=== PATIENT | female | born 1955 | race Caucasian/White ===

== ENCOUNTER → 2016-05-04 | Outpatient (CLI) | payer BC ==
--- NOTE | 2016-05-04 15:07 | MAMMOGRAPHY REPORT ---
BILATERAL DIGITAL SCREENING MAMMOGRAM TOMOSYNTHESIS WITH CAD: 05/04/2016 CLINICAL HISTORY: Routine screening. Patient has no complaints. TECHNIQUE: Breast tomosynthesis in addition to standard 2D mammography was performed. Current study was also evaluated with a Computer Aided Detection (CAD) system. COMPARISON: Comparison is made to exams dated: 04/21/2015 mammogram, 04/14/2014 mammogram, 04/03/2013 m ammogram, 03/28/2013 mammogram, 03/30/2010 mammogram - [facility], and 04/11/2007. BREAST COMPOSITION: There are scattered areas of fibroglandular density in both breasts. FINDINGS: No suspicious masses, calcifications, or areas of architectural distortion are noted in e ither breast. There has been no significant interval change compared to prior exams. A biopsy marke r clip is again noted in the right upper outer quadrant. IMPRESSION: ACR BI-RADS CATEGORY 2: BENIGN There is no mammographic evidence of malignancy. A 1 year screening mammogram is recommended. The p atient will receive written notification of the results. Approximately 10% of breast cancers are not detected with mammography. A negative mammographic repor t should not delay biopsy if a clinically suggestive mass is present. Alissa Sunshine M.D. /:05/04/2016 14:14:24 Glass Crusher: [place], [facility] letter sent: Normal 1/2 BI-RADS Code: ACR BI-RADS Category 2: Benign
== END | disposition home or self-care (01) ==
LOC: C.MAMM 08:21
PROVIDERS: ATTEND Family Medicine
DX: Z12.31 Encounter for screening mammogram for malignant neoplasm of breast (principal)

== ENCOUNTER → 2017-05-10 | Outpatient (CLI) | payer BC ==
--- NOTE | 2017-05-10 15:13 | MAMMOGRAPHY REPORT ---
BILATERAL DIGITAL SCREENING MAMMOGRAM TOMOSYNTHESIS WITH CAD: 05/10/2017 CLINICAL HISTORY: Routine screening. Patient has no complaints. TECHNIQUE: Breast tomosynthesis in addition to standard 2D mammography was performed. Current study was also evaluated with a Computer Aided Detection (CAD) system. COMPARISON: Comparison is made to exams dated: 05/04/2016 mammogram, 04/21/2015 mammogram, 04/14/2014 ma mmogram, 04/03/2013 mammogram, 03/28/2013 mammogram, and 03/30/2010 mammogram - [facility]. BREAST COMPOSITION: There are scattered areas of fibroglandular density in both breasts. FINDINGS: There is a stable seth-shaped biopsy marker clip in the 11:30 to 12:00 right breast. The gl andular pattern is similar to prior mammograms and there is a benign coarse calcification in the 12:0 0 right breast. No suspicious mass, architectural distortion or cluster of suspicious microcalcifica tions is seen. IMPRESSION: ACR BI-RADS CATEGORY 1: NEGATIVE There is no mammographic evidence of malignancy. A 1 year screening mammogram is recommended. The pa tient will receive written notification of the results. Approximately 10% of breast cancers are not detected with mammography. A negative mammographic report should not delay biopsy if a clinically suggestive mass is present. Ingris Aviles M.D. ay/:05/10/2017 10:01:43 Cement Fittings Maker: La RODRIGUEZ)([place]), [facility] letter sent: Normal 1/2 BI-RADS Code: ACR BI-RADS Category 1: Negative
== END | disposition home or self-care (01) ==
LOC: C.MAMM 09:28
PROVIDERS: ATTEND Family Medicine
DX: Z12.31 Encounter for screening mammogram for malignant neoplasm of breast (principal)

== ENCOUNTER 2020-02-08 11:37 | Inpatient (IN) ==
[2020-02-08] MEDS ORDERED: DEXAMETHASONE SOD INJ 10 MG/ML VIAL IV ONE (12:12)
[2020-02-08] MEDS ORDERED: ACETAMINOPHEN 500 MG TAB PO STA (12:12)
[2020-02-08] MEDS ORDERED: SODIUM CHLORIDE 0.9% 1000ML 1,000 ML IV SCH (12:15)
--- NOTE | 2020-02-08 12:18 | Emergency Department Note ---
Impression & Plan Hypoxia, Breathlessness, Weakness, COVID-19, Acute respiratory failure with hypoxia ED Provider Note Provider: Alexi Pearson MD DATE OF SERVICE:02/08/2020 CHIEF COMPLAINT: Weakness, shortness of breath HISTORY OF PRESENT ILLNESS: Patient is a 65-year-old female history of hypertension presenting today complaining of weakness and shortness of breath. Patient tested positive within the past week for coronavirus. Patient states she returned from [place] just over a week ago and thinks that a colleague of her 's was positive and her exposure was from that. Patient states she has been not eating or drinking well and feeling very fatigued and short of breath. Has been isolating at home. Denies significant chest pain or abdominal pain but endorses some diarrhea. Denies nausea at this time. Denies significant leg swelling. Patient has not been using any Tylenol or Motrin at home. Symptoms of breath worse with exertion. REVIEW OF SYSTEMS: A total of 10 review of systems was obtained and negative except as stated above in the HPI. PAST MEDICAL HISTORY: As noted above MEDICATIONS: Reviewed home medications with the patient SOCIAL HISTORY: Non-smoker, PHYSICAL EXAM: GENERAL: alert and oriented on the stretcher appears somewhat fatigued Head: normocephalic and atraumatic EYES: No injection, discharge or icterus. NECK: Trachea midline. Supple. LUNGS: Airway patent. Slight increased work of breathing. HEART: Regular rate and rhythm. No chest wall tenderness ABDOMEN: Soft and non-tender, without guarding or rebound. SKIN: Acyanotic, warm, dry, without rashes EXTREMITIES: Without swelling, tenderness or deformity NEUROLOGICAL: No focal deficits. No aphasia. No facial droop or slurred speech. EK bpm normal sinus rhythm. No PVC. No acute ST segment elevation or depression. Left anterior fascicular block noted. CONTINUOUS CARDIAC MONITORING: was ordered and showed a heart rate of 90 bpm in normal sinus rhythm Patient's laboratory studies and imaging reviewed. Differential includes Infection, dehydration, metabolic abnormality, hypo/hyperglycemia, electrolyte disturbance, anemia, hypoxia, cardiac sources, intracerebral event, toxicologic, neurologic, as well as other pathologies. IMPRESSION/MEDICAL DECISION MAKING: Patient presents weak with shortness of breath known positive for coronavirus. Recent travel. No significant leg swelling. Denies significant chest pain or abdominal pain. Doubt acute intra-abdominal catastrophe as perforation or appendicitis. Patient hypoxic on room air. D-dimer was sent out exclude PE no clinical evidence of DVT. EKG basic labs cultures lactate were sent. Mild leukopenia and lymphopenia. D-dimer is positive and a CT of the chest to be completed to exclude PE. No significant renal dysfunction. CRP mildly elevated. AST slightly elevated. Troponin is undetectable and again I doubt this is cardiac related. No evidence of acute pancreatitis without significant lipase elevation. Chest x-ray ordered with per radiology review and my review multifocal airspace opacities likely viral in nature. Patient given Tylenol here since she has not taken any to help with her symptoms. Given IV fluids. Given dexamethasone for additional treatment given her hypoxia with coronavirus. Patient requires admission given her hypoxia and symptoms. Interesting Covid ID test here was negative however recent positive test and the clinical symptoms suggest that this patient is suffering primarily from coronavirus. Discussed with Dr. Gaytan who reports would not test again at this point and consider the patient coronavirus positive. Empirically covered with a dose of ceftriaxone given her illness now requiring an oxymask 5L. On reassessment the patient does endorse some slight improvement of symptoms with the oxygen. Throughout her stay here in the emergency department patient had escalating oxygen requirements later requiring high flow oxygen. DIAGNOSIS: COVID-19, hypoxia, shortness of breath, hypoxic respiratory failure DISPOSITION: Hospitalist will evaluate Patient was agreeable with this plan. Critical Care I have personally spent 38 minutes of critical care time in the direct management of this patient. This includes bedside care, interpretation of diagnostic studies, and testing, discussion with consultants, [facility], and [facility], and other required patient management activities. These 38 minutes is in excess of all separately billable procedures. Past Med/Surg History Medical History (Updated 02/08/20 @ 17:44 by César Foy MD) HTN (hypertension), benign Pneumonia due to 2019 novel coronavirus Prediabetes Surgical History S/P lumpectomy, right breast Family History Father Tobacco abuse disorder Mother Cancer Social History Smoking Status: Never smoker Hx Alcohol Use: Yes Hx Substance Use: No Feels Safe at Home: Yes Allergies Allergies Allergy/AdvReac Type Severity Reaction Status Date / Time No Known Allergies Allergy Unverified 02/08/20 13:47 Home Meds Home Medications Medication Instructions Recorded Confirmed cholecalciferol (vitamin D3) 25 mcg PO QAM 02/08/20 02/08/20 [Vitamin D3] [id number] [Vicks 30 ml PO QID PRN 02/08/20 02/08/20 NyQuil Cold/Flu (doxyl)] lisinopril 30 mg PO PM 02/08/20 02/08/20 metoprolol succinate 50 mg PO PM 02/08/20 02/08/20 multivitamin 1 tab PO QAM 02/08/20 02/08/20 pantoprazole 40 mg PO QAM 02/08/20 02/08/20 zinc 50 mg PO QAM 02/08/20 02/08/20 Results & Data (ED) Vital Signs Vital Signs - 24 hr 02/08/20 11:44 02/08/20 11:45 02/08/20 11:52 Temperature 37.7 C H Temperature Source Oral Pulse Rate 91 H 92 H 89 Pulse Rate from SpO2 Sensor 87 89 Respiratory Rate 22 24 24 Blood Pressure 125/86 125/86 Blood Pressure Mean 104 99 Blood Pressure Position Sitting Pulse Oximetry 83 L 92 94 Oxygen Delivery Method Room Air Nasal Cannula Oxygen Flow Rate 3 Sepsis Recent Fever Within 48 Hours No Sepsis New/Unexplained Change in Mental Status No Sepsis Action Taken by Nursing No Action Required Oxygen Flow Rate - Titration 3 Pulse Oximetry Post Tiitration 94 02/08/20 12:00 02/08/20 12:30 02/08/20 12:43 Temperature Temperature Source Pulse Rate 87 90 87 Pulse Rate from SpO2 Sensor 87 88 88 Respiratory Rate 22 24 24 Blood Pressure 135/70 Blood Pressure Mean 91 Blood Pressure Position Pulse Oximetry 93 88 L 91 Oxygen Delivery Method Nasal Cannula Nasal Cannula Oxymask Oxygen Flow Rate 3 3 5 Sepsis Recent Fever Within 48 Hours Sepsis New/Unexplained Change in Mental Status Sepsis Action Taken by Nursing Oxygen Flow Rate - Titration Pulse Oximetry Post Tiitration 02/08/20 12:44 02/08/20 13:00 02/08/20 13:01 Temperature Temperature Source Pulse Rate 86 84 85 Pulse Rate from SpO2 Sensor 81 78 86 Respiratory Rate 20 22 22 Blood Pressure 134/81 Blood Pressure Mean 93 Blood Pressure Position Pulse Oximetry 90 91 92 Oxygen Delivery Method Oxymask Oxymask Oxymask Oxygen Flow Rate 5 5 5 Sepsis Recent Fever Within 48 Hours Sepsis New/Unexplained Change in Mental Status Sepsis Action Taken by Nursing Oxygen Flow Rate - Titration Pulse Oximetry Post Tiitration 02/08/20 13:30 02/08/20 13:31 02/08/20 14:00 Temperature Temperature Source Pulse Rate 85 84 81 Pulse Rate from SpO2 Sensor 85 84 81 Respiratory Rate 24 22 22 Blood Pressure 139/85 130/80 Blood Pressure Mean 94 91 Blood Pressure Position Pulse Oximetry 91 91 91 Oxygen Delivery Method Oxymask Oxymask Oxymask Oxygen Flow Rate 5 5 5 Sepsis Recent Fever Within 48 Hours Sepsis New/Unexplained Change in Mental Status Sepsis Action Taken by Nursing Oxygen Flow Rate - Titration Pulse Oximetry Post Tiitration 02/08/20 14:01 02/08/20 14:30 02/08/20 14:31 Temperature Temperature Source Pulse Rate 82 79 78 Pulse Rate from SpO2 Sensor 82 79 79 Respiratory Rate 20 22 22 Blood Pressure 129/80 Blood Pressure Mean 88 Blood Pressure Position Pulse Oximetry 91 90 90 Oxygen Delivery Method Oxymask Oxymask Oxymask Oxygen Flow Rate 5 5 5 Sepsis Recent Fever Within 48 Hours Sepsis New/Unexplained Change in Mental Status Sepsis Action Taken by Nursing Oxygen Flow Rate - Titration Pulse Oximetry Post Tiitration 02/08/20 15:06 Temperature Temperature Source Pulse Rate Pulse Rate from SpO2 Sensor 80 Respiratory Rate Blood Pressure Blood Pressure Mean Blood Pressure Position Pulse Oximetry 91 Oxygen Delivery Method Oxymask Oxygen Flow Rate 10 Sepsis Recent Fever Within 48 Hours Sepsis New/Unexplained Change in Mental Status Sepsis Action Taken by Nursing Oxygen Flow Rate - Titration Pulse Oximetry Post Tiitration Laboratory Data Result diagrams: 02/08/20 12:37 02/08/20 12:37 Lab Results 02/08/20 02/08/20 02/08/20 Range/Units 12:37 12:37 12:37 WBC 2.74 L (4.8-10.8) K/uL RBC 4.76 (4.2-5.4) M/uL Hgb 14.4 (12.0-16.0) g/dL Hct 42.8 (37-47) % MCV 89.9 (80-100) fL MCH 30.3 (25-34) pg MCHC 33.6 (32-36) g/dL Plt Count 142 (130-400) K/uL Immature Gran % (Auto) 0.0 % Neut % (Auto) 67.1 % Lymph % (Auto) 22.6 % Henderson % (Auto) 9.9 % Eos % (Auto) 0.4 % Baso % (Auto) 0.0 % Neut # (Auto) 1.84 (1.4-6.5) K/uL Lymph # (Auto) 0.62 L (1.2-3.4) K/uL Henderson # (Auto) 0.27 (0.11-0.59) K/uL Eos # (Auto) 0.01 (0-0.5) K/uL Baso # (Auto) 0.00 (0-0.2) K/uL Immature Gran # (Auto) 0.00 (0.00-0.02) K/uL PT 10.9 (9.0-12.0) Seconds INR 1.0 (0.9-1.1) D-Dimer 2200 H* (0-500) ug/L FEU Sodium (136-145) mmol/L Potassium (3.5-5.1) mmol/L Chloride (98-107) mmol/L Carbon Dioxide (21-32) mmol/L Anion Gap (3-11) BUN (7-18) mg/dl Creatinine (0.6-1.2) mg/dl Est Cr Clr Drug Dosing ml/min Est GFR ( Amer) Est GFR (Non-Af Amer) BUN/Creatinine Ratio (10-20) Glucose (70-99) mg/dl Lactate (0.4-2.0) mmol/L Calcium (8.5-10.1) mg/dl Total Bilirubin (0.2-1) mg/dl AST (15-37) U/L ALT (12-78) U/L Alkaline Phosphatase (45-117) U/L Troponin I (0-0.045) ng/ml C-Reactive Protein (0-0.29) mg/dl Total Protein (6.4-8.2) gm/dl Albumin (3.4-5.0) gm/dl Globulin (2.5-4.0) gm/dl Albumin/Globulin Ratio (0.9-2) Lipase (73-393) U/L Procalcitonin (0-0.5) ng/ml COVID-19 Eval Order SARS-CoV-2, RNA, NAAT (NEGATIVE) Blood Type B Positive Antibody Screen NEGATIVE 02/08/20 02/08/20 02/08/20 Range/Units 12:37 12:37 12:37 WBC (4.8-10.8) K/uL RBC (4.2-5.4) M/uL Hgb (12.0-16.0) g/dL Hct (37-47) % MCV (80-100) fL MCH (25-34) pg MCHC (32-36) g/dL Plt Count (130-400) K/uL Immature Gran % (Auto) % Neut % (Auto) % Lymph % (Auto) % Henderson % (Auto) % Eos % (Auto) % Baso % (Auto) % Neut # (Auto) (1.4-6.5) K/uL Lymph # (Auto) (1.2-3.4) K/uL Henderson # (Auto) (0.11-0.59) K/uL Eos # (Auto) (0-0.5) K/uL Baso # (Auto) (0-0.2) K/uL Immature Gran # (Auto) (0.00-0.02) K/uL PT (9.0-12.0) Seconds INR (0.9-1.1) D-Dimer (0-500) ug/L FEU Sodium 134 L (136-145) mmol/L Potassium 3.3 L (3.5-5.1) mmol/L Chloride 102 (98-107) mmol/L Carbon Dioxide 27 (21-32) mmol/L Anion Gap 5.0 (3-11) BUN 15 (7-18) mg/dl Creatinine 0.79 (0.6-1.2) mg/dl Est Cr Clr Drug Dosing 75.3 ml/min Est GFR ( Amer) 90.4 Est GFR (Non-Af Amer) 78.0 BUN/Creatinine Ratio 18.7 (10-20) Glucose 116 H (70-99) mg/dl Lactate 1.4 (0.4-2.0) mmol/L Calcium 8.3 L (8.5-10.1) mg/dl Total Bilirubin 0.5 (0.2-1) mg/dl AST 42 H (15-37) U/L ALT 34 (12-78) U/L Alkaline Phosphatase 66 (45-117) U/L Troponin I < 0.015 (0-0.045) ng/ml C-Reactive Protein 3.06 H (0-0.29) mg/dl Total Protein 7.0 (6.4-8.2) gm/dl Albumin 3.1 L (3.4-5.0) gm/dl Globulin 3.9 (2.5-4.0) gm/dl Albumin/Globulin Ratio 0.8 L (0.9-2) Lipase 485 H (73-393) U/L Procalcitonin < 0.05 (0-0.5) ng/ml COVID-19 Eval Order SARS-CoV-2, RNA, NAAT (NEGATIVE) Blood Type Antibody Screen 02/08/20 02/08/20 Range/Units 12:46 12:46 WBC (4.8-10.8) K/uL RBC (4.2-5.4) M/uL Hgb (12.0-16.0) g/dL Hct (37-47) % MCV (80-100) fL MCH (25-34) pg MCHC (32-36) g/dL Plt Count (130-400) K/uL Immature Gran % (Auto) % Neut % (Auto) % Lymph % (Auto) % Henderson % (Auto) % Eos % (Auto) % Baso % (Auto) % Neut # (Auto) (1.4-6.5) K/uL Lymph # (Auto) (1.2-3.4) K/uL Henderson # (Auto) (0.11-0.59) K/uL Eos # (Auto) (0-0.5) K/uL Baso # (Auto) (0-0.2) K/uL Immature Gran # (Auto) (0.00-0.02) K/uL PT (9.0-12.0) Seconds INR (0.9-1.1) D-Dimer (0-500) ug/L FEU Sodium (136-145) mmol/L Potassium (3.5-5.1) mmol/L Chloride (98-107) mmol/L Carbon Dioxide (21-32) mmol/L Anion Gap (3-11) BUN (7-18) mg/dl Creatinine (0.6-1.2) mg/dl Est Cr Clr Drug Dosing ml/min Est GFR ( Amer) Est GFR (Non-Af Amer) BUN/Creatinine Ratio (10-20) Glucose (70-99) mg/dl Lactate (0.4-2.0) mmol/L Calcium (8.5-10.1) mg/dl Total Bilirubin (0.2-1) mg/dl AST (15-37) U/L ALT (12-78) U/L Alkaline Phosphatase (45-117) U/L Troponin I (0-0.045) ng/ml C-Reactive Protein (0-0.29) mg/dl Total Protein (6.4-8.2) gm/dl Albumin (3.4-5.0) gm/dl Globulin (2.5-4.0) gm/dl Albumin/Globulin Ratio (0.9-2) Lipase (73-393) U/L Procalcitonin (0-0.5) ng/ml COVID-19 Eval Order Covid19 [facility] SARS-CoV-2, RNA, NAAT NEGATIVE (NEGATIVE) Blood Type Antibody Screen Administered Medications Discontinued Medications Acetaminophen (Acetaminophen 500 Mg Tab) 1,000 mg PO NOW STA Stop: 02/08/20 12:13 Last Admin: 02/08/20 12:44 Dose: 1,000 mg Documented by: [id number] Dexamethasone (Dexamethasone Sod Inj 10 Mg/Ml Vial) 6 mg IV NOW ONE Stop: 02/08/20 12:13 Last Admin: 02/08/20 12:43 Dose: 6 mg Documented by: [id number] Sodium Chloride (Nss 1000ml) 1,000 mls @ 999 mls/hr IV .Q1H1M HARRY Stop: 02/08/20 13:15 Last Infusion: 02/08/20 13:54 Dose: 0 mls/hr Documented by: [id number] Admin: 02/08/20 12:41 Dose: 999 mls/hr Documented by: [id number] Ceftriaxone Sodium (Rocephin) 2,000 mg in 70 mls @ 140 mls/hr IV NOW STA Stop: 02/08/20 14:13 Last Infusion: 02/08/20 15:17 Dose: 0 mls/hr Documented by: [id number] Admin: 02/08/20 14:46 Dose: 140 mls/hr Documented by: [id number] Ioversol (Optiray 320 125ml) 120 ml IV ONCE ONE Stop: 02/08/20 14:28 Last Admin: 02/08/20 14:27 Dose: 120 ml Documented by: [id number] Discharge Plan Visit Data Chief Complaint: Weakness Stated Complaint: TESTED POSITIVE FOR COVID ED Provider: Alexi Pearson Discharge Problem: Hypoxia, Breathlessness, Weakness, COVID-19, Acute respiratory failure with hypoxia Patient Disposition: Admitted As Inpatient Condition: Fair Discharge Instructions Interventions: ED Discharge Assessment Last Done: 02/08/20 16:53
--- NOTE | 2020-02-08 12:41 | XRay Report ---
XR chest 1V portable HISTORY: Shortness of breath, hypoxia, COVID+ COMPARISON: None. FINDINGS: No pneumothorax. No pleural effusions. The heart is normal in size. Multifocal patchy airsp zoey opacities are noted. This most pronounced within the bilateral mid lung zones. Old, healed left h umeral neck fracture. IMPRESSION: Multifocal patchy airspace opacities likely representing a viral pneumonia. ACT 112: Negative or not required by law. Electronically signed by: Ahsan Wing M.D. 02/08/2020 12:40 PM
[2020-02-08 13:00] LABS: Prothrombin Time 10.9 Seconds (9.0-12.0)
[2020-02-08 13:06] LABS: D Dimer 2200 ug/L FEU (0-500)
[2020-02-08 13:08] LABS: Alanine Aminotransferase 34 U/L (12-78); Albumin Level 3.1 gm/dl (3.4-5.0); Aspartate Aminotransferase 42 U/L (15-37); BUN Creatinine Ratio 18.7 (10-20); Blood Urea Nitrogen 15 mg/dl (7-18); Calcium 8.3 mg/dl (8.5-10.1); Carbon Dioxide 27 mmol/L (21-32); Chloride 102 mmol/L (98-107); Creatinine Clr Calc Pharmacy 75.3 ml/min; Est GFR (African American) 90.4; Glucose 116 mg/dl (70-99); Lipase 485 U/L (73-393); Potassium 3.3 mmol/L (3.5-5.1); Sodium 134 mmol/L (136-145)
[2020-02-08 13:13] LABS: Albumin Globulin Ratio 0.8 (0.9-2); Alkaline Phosphatase 66 U/L (45-117); Bilirubin,Total 0.5 mg/dl (0.2-1); C Reactive Protein 3.06 mg/dl (0-0.29); Globulin 3.9 gm/dl (2.5-4.0); Troponin I < 0.015 ng/ml (0-0.045)
[2020-02-08 13:26] LABS: Eosinophils # (auto) 0.01 K/uL (0-0.5); Eosinophils % (auto) 0.4 %; Hematocrit (blood only) 42.8 % (37-47); Hemoglobin 14.4 g/dL (12.0-16.0); Lymphocytes # (auto) 0.62 K/uL (1.2-3.4); Lymphocytes % (auto) 22.6 %; Mean Corpuscular Hemoglobin 30.3 pg (25-34); Mean Corpuscular Hgb Conc 33.6 g/dL (32-36); Mean Corpuscular Volume 89.9 fL (80-100); Monocytes # (auto) 0.27 K/uL (0.11-0.59); Monocytes % (auto) 9.9 %; Neutrophils # (auto) 1.84 K/uL (1.4-6.5); Neutrophils % (auto) 67.1 %; Platelet Count 142 K/uL (130-400); Red Blood Count 4.76 M/uL (4.2-5.4); White Blood Count 2.74 K/uL (4.8-10.8)
[2020-02-08] MEDS ORDERED: cefTRIAXone SODIUM 2,000 MG/70 ML BAG IV STA (13:44)
--- NOTE | 2020-02-08 13:55 | History & Physical Report ---
Date of Service February 08, 2020 Assessment & Plan (1) Pneumonia due to 2019 novel coronavirus: Acute respiratory failure with hypoxia Multifocal Covid pneumonia CTA: No evidence for pulmonary embolus. Multifocal bilateral groundglass and consolidative airspace opacities consistent with a pneumonia. This likely represents a viral pneumonia. A superimposed bacterial pneumonia cannot be excluded. Normal procalcitonin Troponin negative CRP:3.06 COVID screen tested positive on 01/31/20 --Done at [facility] (Obtain records) Check [employer] as likely false negative COVID screen in ED Blood cultures pending Started on high flow oxygen Also started on Remdesivir, Dexamethasone Patient consents for coalescent plasma Consult pulmonology Isolation precautions Hypokalemia Hyponatremia likely secondary to GI loses Replete electrolytes as needed Monitor Diarrhea Likely secondary to Covid Stool studies ordered HTN Continue lisinopril, metoprolol GERD Continue PPI Prediabetes Update HbA1c Expect hypoglycemia while on IV steroids Insulin sliding scale while hospitalized Elevated D-dimer CTA showed no PE Check venous Dopplers to rule out DVT DVT Px: Lovenox SQ CODE STATUS Full code History of Present Illness Chief Complaint: Shortness of breath Primary Care Provider: Jessie Esquivel PA-C Patient is a 65-year-old female with history of hypertension, prediabetes, GERD, S/P Right breast lumpectomy and other medical problems presents with history of worsening shortness of breath, generalized weakness associated with severe tiredness since 7 days duration. Patient was tested positive for Covid on September 30, 2019. Patient also states that her was tested positive as well. She admits to returning back from [place] about 10 days ago. She reports minimal cough with no expectoration. She denies dyspnea at rest but has significant shortness of breath with minimal exertion. She also admits to having diarrhea since 1 week duration but denies any blood in stools. Also states having low-grade fever associated with chills since 1 week duration. She admits to having loss of taste and smell for the last few days. Reports chronic lower back pain since many years. Patient states having very poor appetite clinically but denies any significant weight loss. Denies any history of chest pain, SOB, palpitations, dizziness, pedal edema, wheezing, hemoptysis, fall, head trauma, headache, bowel/bladder incontinence, nausea, vomiting, abdominal pain, blood in stools, dysuria, hematuria, recent change in medications. Allergies Allergy/AdvReac Type Severity Reaction Status Date / Time No Known Allergies Allergy Unverified 02/08/20 13:47 Home Medications Medication Instructions Recorded Confirmed Type cholecalciferol (vitamin D3) 25 mcg PO QAM 02/08/20 02/08/20 History [Vitamin D3] [id number]-[id number] [Vicks 30 ml PO QID PRN 02/08/20 02/08/20 History NyQuil Cold/Flu (doxyl)] lisinopril 30 mg PO PM 02/08/20 02/08/20 History metoprolol succinate 50 mg PO PM 02/08/20 02/08/20 History multivitamin 1 tab PO QAM 02/08/20 02/08/20 History pantoprazole 40 mg PO QAM 02/08/20 02/08/20 History zinc 50 mg PO QAM 02/08/20 02/08/20 History Past Med/Surg History Medical History HTN (hypertension), benign Prediabetes Surgical History S/P lumpectomy, right breast Family History Father Tobacco abuse disorder Mother Cancer Social History Smoking Status: Never smoker Hx Alcohol Use: Yes Alcohol type: wine Hx Substance Use: No Preferred Language: Greek Sales Enablement Analyst Required: No Beliefs That Will Affect Care: None Current Living Situation: Spouse Other Information That Helps Us Care for You: No Feels Safe at Home: Yes Safety Concerns: Feels Safe At This Time Assistive Devices: None Review of Systems Review of Systems: All systems reviewed & are unremarkable except as noted in HPI & below Physical Exam Physical Exam: Physical Exam: Vitals signs as noted above General Appearance:Moderately built and nourished, no apparent distress Head: normocephalic, Atraumatic Eyes: normal inspection, EOMI, PERRL Neck: supple, Trachea midline Respiratory/Chest: Normal breath sounds, B/L Scattered crackles Cardiovascular: S1, S2, No murmur Abdomen/GI:Soft, Non tender, Bowel sounds present Extremities/Musculoskelatal:normal inspection, no edema Neurologic/Psych:AAOX3, grossly no focal neurological deficits Skin: normal color, warm Results & Data Results & Data ([facility]) Vital Signs (Past 12 Hours) Vital Signs Temp Pulse Resp BP Pulse Ox 02/08/20 13:31 84 22 91 02/08/20 13:30 85 24 139/85 91 02/08/20 13:01 85 22 92 02/08/20 13:00 84 22 134/81 91 02/08/20 12:44 86 20 90 02/08/20 12:43 87 24 135/70 91 02/08/20 12:30 90 24 88 L 02/08/20 12:00 87 22 93 02/08/20 11:52 89 24 94 02/08/20 11:45 37.7 C H 92 H 24 125/86 92 02/08/20 11:44 91 H 22 125/86 83 L Laboratory Results Short CBC 02/08/20 Range/Units 12:37 WBC 2.74 L (4.8-10.8) K/uL Hgb 14.4 (12.0-16.0) g/dL Hct 42.8 (37-47) % Plt Count 142 (130-400) K/uL BMP 02/08/20 12:37 Sodium 134 L Potassium 3.3 L Chloride 102 Carbon Dioxide 27 BUN 15 Creatinine 0.79 Glucose 116 H Calcium 8.3 L Cardiac Enzymes 02/08/20 Range/Units 12:37 Troponin I < 0.015 (0-0.045) ng/ml Liver Function 02/08/20 Range/Units 12:37 Total Bilirubin 0.5 (0.2-1) mg/dl AST 42 H (15-37) U/L ALT 34 (12-78) U/L Alkaline Phosphatase 66 (45-117) U/L Albumin 3.1 L (3.4-5.0) gm/dl Diagnostic Findings Chest CTA: 1. No evidence for pulmonary embolus. 2. Multifocal bilateral groundglass and consolidative airspace opacities consistent with a pneumonia. This likely represents a viral pneumonia. A superimposed bacterial pneumonia cannot be excluded. ECG Additional Comments: EKG: Normal sinus rhythm. Left anterior fascicular block. QTc 465.
[2020-02-08] MEDS ORDERED: OPTIRAY 320 125ml IV ONE (14:27)
--- NOTE | 2020-02-08 15:13 | CT Scan Report ---
CHEST CTA for PULMONARY ARTERIES CT DOSE: 291.64 mGy.cm HISTORY: Shortness of breath. PE, +COVID, +DIMER TECHNIQUE: Multiaxial CT images of the chest were performed following the intravenous administration of contrast to evaluate the pulmonary arteries. Maximal intensity projection images were also obtaine d. A dose lowering technique was utilized adhering to the principles of ALARA. COMPARISON STUDY: Chest 02/08/2020. FINDINGS: The central airways are patent. No pleural effusions. No pneumothorax. Multifocal bilateral groundglass and consolidative airspace opacities most pronounced within the mid lung zones. This lik latrell represents a viral pneumonia. There are also focal areas of consolidation within the lower lobes posteriorly. A superimposed bacterial pneumonia cannot be excluded. Calcified granuloma within the ri ght middle lobe. Old, healed left humeral neck fracture. No suspicious osseous lesions identified. Li mited views of the upper abdomen demonstrate a normal liver and spleen. Normal esophagus. The heart i s top normal in size. No pericardial effusion. A few prominent mediastinal and hilar lymph nodes are likely reactive. No filling defects within the pulmonary arteries to suggest pulmonary embolus. IMPRESSION: 1. No evidence for pulmonary embolus. 2. Multifocal bilateral groundglass and consolidative airspace opacities consistent with a pneumonia. This likely represents a viral pneumonia. A superimposed bacterial pneumonia cannot be excluded. ACT 112: Negative or not required by law. Electronically signed by: Ahsan Wing M.D. 02/08/2020 3:12 PM
[2020-02-08] MEDS ORDERED: POLYETHYLENE (MIRALAX) 17 GM PACK PO PRN (17:25)
[2020-02-08] MEDS ORDERED: FUROSEMIDE 40 MG/4 ML VIAL IV ONE (17:25)
[2020-02-08] MEDS ORDERED: ACETAMINOPHEN 325 MG TAB PO PRN (17:25)
[2020-02-08] MEDS ORDERED: GLUCOSE 10 TABS/TUBE PO PRN (17:25)
[2020-02-08] MEDS ORDERED: GLUCAGON FOR INJ 1 MG VIAL SQ PRN (17:25)
[2020-02-08] MEDS ORDERED: GLUCOSE 40% GEL 15 GM TUBE PO PRN (17:25)
[2020-02-08] MEDS ORDERED: DEXTROSE 50% 50 ML SYRINGE IV PRN (17:25)
[2020-02-08] MEDS ORDERED: CARBOHYDRATES FOR HYPOGLYCEMIA PO PRN (17:25)
[2020-02-08] MEDS ORDERED: ONDANSETRON INJ 2 MG/ML 2 ML VIAL IV PRN (17:25)
[2020-02-08] MEDS ORDERED: REMDESIVIR 200 MG in SODIUM CHLORIDE 0.9% 210 ML IV STA (17:38)
[2020-02-08] MEDS ORDERED: POTASSIUM CHLORIDE CRTAB 20 MEQ TABCR PO ONE (17:46)
[2020-02-08] MEDS ORDERED: FUROSEMIDE 40 MG in SYRINGE 0 ML IV ONE (18:00)
[2020-02-08] MEDS: ENOXAPARIN INJ 40 MG/0.4 ML SYR SQ SCH (18:50)
[2020-02-08 18:53] LABS: Appearance Urine Clear (Clear); Bacteria Urine Automated Negative (Negative); Bilirubin Urine Negative (Negative); Blood Urine Trace (Negative); Cast Urine Automated 0 /lpf (0-5); Color Urine Yellow; Epithelial Cell Urine Auto 20-30 /lpf (0-5); Glucose Urine UA Negative (Negative); Ketones Urine Negative (Negative); Leukocyte Esterase Urine Trace (Negative); Nitrite Urine Negative (Negative); Protein Urine 1+ (Negative); RBC Urine Automated 0-4 /hpf (0-4); Specific Gravity Urine 1.027 (1.000-1.030); Urobilinogen Urine Negative (Negative); pH Urine 6.5 (4.5-7.5)
[2020-02-08] MEDS ORDERED: ALBUTEROL HFA 8 GM INHALER INH PRN (19:00)
[2020-02-08] MEDS: INSULIN ASPART 100 UNITS/ML 3 ML PEN SC SCH ×2 (19:03→21:00)
[2020-02-08] MEDS: SODIUM CHLORIDE 0.9% 10ML FLUSH IV SCH (21:19)
[2020-02-08] MEDS: lisinopril 10 MG TAB PO SCH (21:20)
[2020-02-08] MEDS: DOXYCYCLINE HYCLATE 100 MG CAP PO SCH (21:20)
[2020-02-08] MEDS: METOPROLOL SUCC 50MG EXT REL TAB PO SCH (21:20)
--- NOTE | 2020-02-09 06:35 | Electrocardiogram Report ---
Test Reason : Blood Pressure : / mmHG Vent. Rate : 083 BPM Atrial Rate : 083 BPM P-R Int : 156 ms QRS Dur : 092 ms QT Int : 396 ms P-R-T Axes : 032 -55 -01 degrees QTc Int : 465 ms Normal sinus rhythm Left anterior fascicular block Inferior infarct , age undetermined Abnormal ECG No previous ECGs available Confirmed by Bunny Goldberg ([id number]) on 02/09/2020 6:35:35 AM Referred By: REFERRED SELF Confirmed By:Bunny Goldberg
[2020-02-09 07:18] LABS: Hematocrit (blood only) 41.1 % (37-47); Hemoglobin 13.9 g/dL (12.0-16.0); Immature Granulocytes # (auto) 0.01 K/uL (0.00-0.02); Immature Granulocytes % (auto) 0.2 %; Lymphocytes # (auto) 0.69 K/uL (1.2-3.4); Lymphocytes % (auto) 15.4 %; Mean Corpuscular Hemoglobin 30.1 pg (25-34); Mean Corpuscular Hgb Conc 33.8 g/dL (32-36); Mean Platelet Volume 10.5 fL (7.4-10.4); Monocytes # (auto) 0.35 K/uL (0.11-0.59); Monocytes % (auto) 7.8 %; Neutrophils # (auto) 3.42 K/uL (1.4-6.5); Neutrophils % (auto) 76.6 %; Platelet Count 157 K/uL (130-400); RDW Coefficient of Variation 13.3 % (11.5-14.5); RDW Standard Deviation 43.5 fL (36.4-46.3); Red Blood Count 4.62 M/uL (4.2-5.4); White Blood Count 4.47 K/uL (4.8-10.8)
[2020-02-09 07:39] LABS: Albumin Level 3.1 gm/dl (3.4-5.0); BUN Creatinine Ratio 23.8 (10-20); Calcium 8.6 mg/dl (8.5-10.1); Creatinine Clr Calc Pharmacy 89.3 ml/min; Est GFR (African American) 106.2; Est GFR (Non-African American) 91.6; Magnesium 2.2 mg/dl (1.8-2.4); Potassium 3.6 mmol/L (3.5-5.1)
[2020-02-09 07:44] LABS: Albumin Globulin Ratio 0.7 (0.9-2); Bilirubin,Total 0.5 mg/dl (0.2-1); Ferritin 927.4 ng/ml (8-388); Globulin 4.3 gm/dl (2.5-4.0); Total Protein 7.4 gm/dl (6.4-8.2)
--- NOTE | 2020-02-09 08:13 | Ultrasound Report ---
BILATERAL LOWER EXTREMITY VENOUS DOPPLER HISTORY: Elevated D dimer, Hypoxia COMPARISON STUDY: None. FINDINGS: There is normal compressibility, flow, and augmentation within the bilateral lower extremit y deep venous systems. IMPRESSION: No DVT within the right or left lower extremity. ACT 112: Negative or not required by law. Electronically signed by: Ahsan Wing M.D. 02/09/2020 8:12 AM
--- NOTE | 2020-02-09 08:35 | Pulmonary Consultation ---
Date of Consultation February 09, 2020 Assessment & Plan (1) Pneumonia due to 2019 novel coronavirus: CT chest 02/08/2020: Bilateral groundglass opacities appreciated in the upper lobes there is also dense consolidative process appreciated in the periphery of the upper lobes as well as bilateral lower lobes, minimal mediastinal lymphadenopathy. No pulmonary embolism. --Acute hypoxic respiratory failure Secondary to multilobar pneumonia because of COVID-19 Positive lymphopenia Ferritin 927, CRP 3.06, D-dimer 2200 Procalcitonin less than 0.05 Continue with dexamethasone for total of 10 days Remdesivir for total of 5 days Monitor LFTs, ferritin Continue with Lovenox Patient tested negative for COVID-19 in the hospital [facility]. False-negative on this test is high. Given the patient has a history of Covid positive I would treat her as Covid positive pneumonia. Plan: O2 supplementation to keep oxygen saturation around 90-92% Awake proning would be recommended. If the patient is still complaining of shortness of breath next step would be BiPAP with a minimum of EPAP 8 and titrate higher to goal saturation greater than 88. Incentive spirometry with guaifenesin Given that the patient was positive for Covid approximately 7 days ago. Possibility of superinfection with bacteria is high. I would continue with antibiotics for the time being. Repeat procalcitonin in 24-48 hours. CRP is only 3.06, I do not think patient is a candidate for Tocilizumab. Please note the above document was generated using voice recognition software. It may contain grammatical, syntax or spelling errors.Any formal questions or concerns about the content, text or information contained within the body of this dictation should be directly addressed to the provider for clarification. (2) COVID-19: (3) Acute respiratory failure with hypoxia: History of Present Illness Attending Physician: Eduardo Velasquez MD History of Present Illness 68 year-old non-smoker with history of hypertension, GERD, right-sided breast lumpectomy was admitted to the hospital because of worsening shortness of breath and generalized weakness for approximately 7 days. Patient stated that she tested positive for Covid on September 30, 2019 In the ED patient was found to be hypoxic. CT chest shows peripheral g roundglass opacities as well as consolidative process peripherally in upper and lower lobes. In the ED NAAT Covid 19 test was done which was negative. At the time of examination patient was breathing in the low 20s. She was 100% FiO2, 40 L high flow saturating 91%. Patient has just returned from commode. As per the nurse was also present in the room says that she desaturated on exertion to mid 80s and it took time for her to come back. Patient denies any chest pain. She does state that she is feeling weak. No nausea or vomiting. No headache. Allergies Allergy/AdvReac Type Severity Reaction Status Date / Time No Known Allergies Allergy Unverified 02/08/20 13:47 Home Medications Medication Instructions Recorded Confirmed Type cholecalciferol (vitamin D3) 25 mcg PO QAM 02/08/20 02/08/20 History [Vitamin D3] [id number] [Vicks 30 ml PO QID PRN 02/08/20 02/08/20 History NyQuil Cold/Flu (doxyl)] lisinopril 30 mg PO PM 02/08/20 02/08/20 History metoprolol succinate 50 mg PO PM 02/08/20 02/08/20 History multivitamin 1 tab PO QAM 02/08/20 02/08/20 History pantoprazole 40 mg PO QAM 02/08/20 02/08/20 History zinc 50 mg PO QAM 02/08/20 02/08/20 History Patient History Medical History (Updated 02/09/20 @ 08:27 by Suzanna Gaytan MD) HTN (hypertension), benign Pneumonia due to 2019 novel coronavirus Prediabetes Surgical History S/P lumpectomy, right breast Family History Father Tobacco abuse disorder Mother Cancer Social History Smoking Status: Never smoker Hx Alcohol Use: Yes Alcohol type: wine Hx Substance Use: No Preferred Language: Armenian Fire Alarm Installer Required: No Beliefs That Will Affect Care: None Current Living Situation: Spouse Other Information That Helps Us Care for You: No Feels Safe at Home: Yes Safety Concerns: Feels Safe At This Time Assistive Devices: None Review of Systems Review of Systems: All systems reviewed & are unremarkable except as noted in HPI & below Physical Exam Physical Exam: Constitutional: No acute distress HEENT: EOMI, PERRLA Respiratory system: Decreased air entry bilaterally, positive crackles bilaterally, no wheeze, no rhonchi CVS: S1-S2 positive, no murmurs or gallops Abdomen: Soft, nontender, nondistended, positive bowel sounds x4 Extremities: +2 pulses bilaterally radialis/ dorsalis pedis, no cyanosis, no edema Neuro: Awake alert oriented x3 Psych: Normal mood and affect G/U: No Burns Skin: no rashes, warm and dry Lymphatic: no cervical or axillary lymphadenopathy Results & Data Results & Data ([facility]) Vital Signs (Past 12 Hours) Vital Signs Temp Pulse Pulse Resp BP BP Pulse Ox 02/09/20 07:51 36.6 C 79 22 154/104 H 93 02/09/20 04:00 37.2 C 77 22 162/102 H 94 02/09/20 03:38 88 20 89 L 02/08/20 23:34 37.0 C 88 19 162/110 H 91 02/08/20 23:29 89 18 93 02/08/20 23:07 86 20 154/99 H 97 02/08/20 22:38 36.4 C L 86 20 164/106 H 93 02/09/20 05:38 02/09/20 05:38 PG Care Time/CCT Total # of Minutes Spent Total Time Spent with Patient: Total time spent is greater than 50% in coordina tion of care (as documented) at patient's floor/unit and/or counseling patient: Coding Level of Care Code 75573 Initial Inpt Care Lvl 3 Diagnoses Pneumonia due to 2019 novel coronavirus U07.1; J12.89 COVID-19 U07.1 Acute respiratory failure with hypoxia J96.01
[2020-02-09] MEDS ORDERED: FUROSEMIDE 20 MG in SYRINGE 0 ML IV ONE (08:45)
[2020-02-09] MEDS ORDERED: FUROSEMIDE 40 MG/4 ML VIAL IV ONE ×2 (09:00→14:00)
[2020-02-09] MEDS ORDERED: dexAMETHasone 6 MG in SYRINGE 0 ML IV SCH (09:00)
--- NOTE | 2020-02-09 09:39 | Hospitalist Progress Note ---
Date of Service February 09, 2020 Assessment & Plan (1) Pneumonia due to 2019 novel coronavirus: Acute respiratory failure with hypoxia Multifocal Covid pneumonia CTA: No evidence for pulmonary embolus. Multifocal bilateral groundglass and consolidative airspace opacities consistent with a pneumonia. This likely represents a viral pneumonia. A superimposed bacterial pneumonia cannot be excluded. Normal procalcitonin Troponin negative CRP:3.06 COVID screen tested positive on 01/31/20 -- Done at [facility] (Obtain records) Check [employer] as likely false negative COVID screen in ED Blood cultures pending Started on high flow oxygen Also started on Remdesivir, Dexamethasone (day #2), plan for 5 days of remdesavir and up to 10 days of Dexamethasone Patient consented for convalescent plasma, plasma administered (02/07 night), 40 IV lasix given Consult pulmonology - recommend proning, incentive spirometry, guaifenesin, and antibiotics given possibility of superimposed bacterial infection is high (currently pt is on ceftriaxone and doxy) Isolation precautions Hypokalemia Hyponatremia likely secondary to GI loses Replete electrolytes as needed Monitor Diarrhea Likely secondary to Covid Stool studies ordered HTN Continue lisinopril, metoprolol GERD Continue PPI Prediabetes Update HbA1c Expect hypoglycemia while on IV steroids Insulin sliding scale while hospitalized Elevated D-dimer CTA showed no PE Venous Dopplers negative for DVT DVT Px:Lovenox SQ CODE STATUS: Full code Admission and Anticipated Discharge Date Admission Date: February 08, 2020 Subjective Patient seen in follow-up of COVID-19 infection. Currently patient is lying in bed, on high flow nasal cannula, appears comfortable and in no acute distress however states she does not feel well, not much better since yesterday. Patient was admitted yesterday after not feeling well at home, for several days, and was found to have positive COVID-19 test as outpatient. Currently denies chest pain or abdominal pain, nausea or vomiting. She is able to answer questions appropriately. Review of Systems Review of Systems: All systems reviewed & are unremarkable except as noted in HPI & below Constitutional: no fever and no chills Respiratory: + cough and + dyspnea Cardiovascular: no chest pain and no palpitations Gastrointestinal: no abdominal pain, no nausea and no vomiting Physical Exam Physical Exam: General Appearance: WD/WN female on HF NC, no apparent distress Head: normocephalic, Atraumatic Eyes: normal inspection, EOMI, PERRL Neck: supple, Trachea midline Respiratory/Chest: Normal breath sounds, B/L Scattered crackles Cardiovascular: S1, S2, No murmur Abdomen/GI:Soft, Non tender, Bowel sounds present Extremities/MSK: normal inspection, no LE edema, moves extremities spontaneously Neurologic/Psych: AAOX3, speech fluent, no facial asymmetry, moves extremities spontaneously Skin: normal color, warm, dry Results & Data Results & Data ([facility]) Vital Signs (Past 12 Hours) Vital Signs Temp Pulse Pulse Resp BP BP Pulse Ox 02/09/20 08:25 82 24 90 02/09/20 07:51 36.6 C 79 22 154/104 H 93 02/09/20 04:00 37.2 C 77 22 162/102 H 94 02/09/20 03:38 88 20 89 L 02/08/20 23:34 37.0 C 88 19 162/110 H 91 02/08/20 23:29 89 18 93 02/08/20 23:07 86 20 154/99 H 97 02/08/20 22:38 36.4 C L 86 20 164/106 H 93 Laboratory Results 02/09/20 02/09/20 02/09/20 Range/Units 07:49 05:38 05:38 WBC 4.47 L (4.8-10.8) K/uL RBC 4.62 (4.2-5.4) M/uL Hgb 13.9 (12.0-16.0) g/dL Hct 41.1 (37-47) % MCV 89.0 (80-100) fL MCH 30.1 (25-34) pg MCHC 33.8 (32-36) g/dL RDW Std Deviation 43.5 (36.4-46.3) fL RDW Coeff of Uma 13.3 (11.5-14.5) % Plt Count 157 (130-400) K/uL MPV 10.5 H (7.4-10.4) fL Immature Gran % (Auto) 0.2 % Neut % (Auto) 76.6 % Lymph % (Auto) 15.4 % [place] % (Auto) 7.8 % Eos % (Auto) 0.0 % Baso % (Auto) 0.0 % Neut # (Auto) 3.42 (1.4-6.5) K/uL Lymph # (Auto) 0.69 L (1.2-3.4) K/uL [place] # (Auto) 0.35 (0.11-0.59) K/uL Eos # (Auto) 0.00 (0-0.5) K/uL Baso # (Auto) 0.00 (0-0.2) K/uL Immature Gran # (Auto) 0.01 (0.00-0.02) K/uL PT (9.0-12.0) Seconds INR (0.9-1.1) D-Dimer (0-500) ug/L FEU Sodium 137 (136-145) mmol/L Potassium 3.6 (3.5-5.1) mmol/L Chloride 105 (98-107) mmol/L Carbon Dioxide 26 (21-32) mmol/L Anion Gap 6.0 (3-11) BUN 16 (7-18) mg/dl Creatinine 0.67 (0.6-1.2) mg/dl Est Cr Clr Drug Dosing 89.3 ml/min Est GFR ( Amer) 106.2 Est GFR (Non-Af Amer) 91.6 BUN/Creatinine Ratio 23.8 H (10-20) Glucose 103 H (70-99) mg/dl POC Glucose 107 H (70-99) mg/dl Lactate (0.4-2.0) mmol/L Calcium 8.6 (8.5-10.1) mg/dl Magnesium 2.2 (1.8-2.4) mg/dl Ferritin 927.4 H (8-388) ng/ml Total Bilirubin 0.5 (0.2-1) mg/dl AST 39 H (15-37) U/L ALT 36 (12-78) U/L Alkaline Phosphatase 69 (45-117) U/L Total Creatine Kinase 232 H (26-192) U/L Troponin I (0-0.045) ng/ml C-Reactive Protein (0-0.29) mg/dl Total Protein 7.4 (6.4-8.2) gm/dl Albumin 3.1 L (3.4-5.0) gm/dl Globulin 4.3 H (2.5-4.0) gm/dl Albumin/Globulin Ratio 0.7 L (0.9-2) Lipase (73-393) U/L Procalcitonin (0-0.5) ng/ml Urine Color Urine Appearance (Clear) Urine pH (4.5-7.5) Ur Specific [place] (1.000-1.030) Urine Protein (Negative) Urine Glucose (UA) (Negative) Urine Ketones (Negative) Urine Blood (Negative) Urine Nitrite (Negative) Urine Bilirubin (Negative) Urine Urobilinogen (Negative) Ur Leukocyte Esterase (Negative) Urine WBC (Auto) (0-5) /hpf Urine RBC (Auto) (0-4) /hpf U Hyaline Cast (Auto) (0-5) /lpf U Epithel Cells (Auto) (0-5) /lpf Urine Bacteria (Auto) (Negative) COVID-19 Eval Order SARS-CoV-2, RNA, NAAT (NEGATIVE) Blood Type Antibody Screen 02/08/20 02/08/20 02/08/20 Range/Units Unknown 18:00 17:29 WBC (4.8-10.8) K/uL RBC (4.2-5.4) M/uL Hgb (12.0-16.0) g/dL Hct (37-47) % MCV (80-100) fL MCH (25-34) pg MCHC (32-36) g/dL RDW Std Deviation (36.4-46.3) fL RDW Coeff of Uma (11.5-14.5) % Plt Count (130-400) K/uL MPV (7.4-10.4) fL Immature Gran % (Auto) % Neut % (Auto) % Lymph % (Auto) % [place] % (Auto) % Eos % (Auto) % Baso % (Auto) % Neut # (Auto) (1.4-6.5) K/uL Lymph # (Auto) (1.2-3.4) K/uL [place] # (Auto) (0.11-0.59) K/uL Eos # (Auto) (0-0.5) K/uL Baso # (Auto) (0-0.2) K/uL Immature Gran # (Auto) (0.00-0.02) K/uL PT (9.0-12.0) Seconds INR (0.9-1.1) D-Dimer (0-500) ug/L FEU Sodium (136-145) mmol/L Potassium (3.5-5.1) mmol/L Chloride (98-107) mmol/L Carbon Dioxide (21-32) mmol/L Anion Gap (3-11) BUN (7-18) mg/dl Creatinine (0.6-1.2) mg/dl Est Cr Clr Drug Dosing ml/min Est GFR ( Amer) Est GFR (Non-Af Amer) BUN/Creatinine Ratio (10-20) Glucose (70-99) mg/dl POC Glucose 152 H (70-99) mg/dl Lactate (0.4-2.0) mmol/L Calcium (8.5-10.1) mg/dl Magnesium (1.8-2.4) mg/dl Ferritin (8-388) ng/ml Total Bilirubin (0.2-1) mg/dl AST (15-37) U/L ALT (12-78) U/L Alkaline Phosphatase (45-117) U/L Total Creatine Kinase (26-192) U/L Troponin I (0-0.045) ng/ml C-Reactive Protein (0-0.29) mg/dl Total Protein (6.4-8.2) gm/dl Albumin (3.4-5.0) gm/dl Globulin (2.5-4.0) gm/dl Albumin/Globulin Ratio (0.9-2) Lipase (73-393) U/L Procalcitonin (0-0.5) ng/ml Urine Color Yellow Urine Appearance Clear (Clear) Urine pH 6.5 (4.5-7.5) Ur Specific [place] 1.027 (1.000-1.030) Urine Protein 1+ H (Negative) Urine Glucose (UA) Negative (Negative) Urine Ketones Negative (Negative) Urine Blood Trace H (Negative) Urine Nitrite Negative (Negative) Urine Bilirubin Negative (Negative) Urine Urobilinogen Negative (Negative) Ur Leukocyte Esterase Trace H (Negative) Urine WBC (Auto) 1-5 (0-5) /hpf Urine RBC (Auto) 0-4 (0-4) /hpf U Hyaline Cast (Auto) 0 (0-5) /lpf U Epithel Cells (Auto) 20-30 H (0-5) /lpf Urine Bacteria (Auto) Negative (Negative) COVID-19 Eval Order SARS-CoV-2, RNA, NAAT (NEGATIVE) Blood Type B Positive Antibody Screen NEGATIVE 02/08/20 02/08/20 02/08/20 Range/Units 12:46 12:46 12:37 WBC (4.8-10.8) K/uL RBC (4.2-5.4) M/uL Hgb (12.0-16.0) g/dL Hct (37-47) % MCV (80-100) fL MCH (25-34) pg MCHC (32-36) g/dL RDW Std Deviation (36.4-46.3) fL RDW Coeff of Uma (11.5-14.5) % Plt Count (130-400) K/uL MPV (7.4-10.4) fL Immature Gran % (Auto) % Neut % (Auto) % Lymph % (Auto) % [place] % (Auto) % Eos % (Auto) % Baso % (Auto) % Neut # (Auto) (1.4-6.5) K/uL Lymph # (Auto) (1.2-3.4) K/uL [place] # (Auto) (0.11-0.59) K/uL Eos # (Auto) (0-0.5) K/uL Baso # (Auto) (0-0.2) K/uL Immature Gran # (Auto) (0.00-0.02) K/uL PT (9.0-12.0) Seconds INR (0.9-1.1) D-Dimer (0-500) ug/L FEU Sodium (136-145) mmol/L Potassium (3.5-5.1) mmol/L Chloride (98-107) mmol/L Carbon Dioxide (21-32) mmol/L Anion Gap (3-11) BUN (7-18) mg/dl Creatinine (0.6-1.2) mg/dl Est Cr Clr Drug Dosing ml/min Est GFR ( Amer) Est GFR (Non-Af Amer) BUN/Creatinine Ratio (10-20) Glucose (70-99) mg/dl POC Glucose (70-99) mg/dl Lactate (0.4-2.0) mmol/L Calcium (8.5-10.1) mg/dl Magnesium (1.8-2.4) mg/dl Ferritin (8-388) ng/ml Total Bilirubin (0.2-1) mg/dl AST (15-37) U/L ALT (12-78) U/L Alkaline Phosphatase (45-117) U/L Total Creatine Kinase (26-192) U/L Troponin I (0-0.045) ng/ml C-Reactive Protein (0-0.29) mg/dl Total Protein (6.4-8.2) gm/dl Albumin (3.4-5.0) gm/dl Globulin (2.5-4.0) gm/dl Albumin/Globulin Ratio (0.9-2) Lipase (73-393) U/L Procalcitonin < 0.05 (0-0.5) ng/ml Urine Color Urine Appearance (Clear) Urine pH (4.5-7.5) Ur Specific [place] (1.000-1.030) Urine Protein (Negative) Urine Glucose (UA) (Negative) Urine Ketones (Negative) Urine Blood (Negative) Urine Nitrite (Negative) Urine Bilirubin (Negative) Urine Urobilinogen (Negative) Ur Leukocyte Esterase (Negative) Urine WBC (Auto) (0-5) /hpf Urine RBC (Auto) (0-4) /hpf U Hyaline Cast (Auto) (0-5) /lpf U Epithel Cells (Auto) (0-5) /lpf Urine Bacteria (Auto) (Negative) COVID-19 Eval Order Covid19 IDNow atMMOC SARS-CoV-2, RNA, NAAT NEGATIVE (NEGATIVE) Blood Type Antibody Screen 02/08/20 02/08/20 02/08/20 Range/Units 12:37 12:37 12:37 WBC (4.8-10.8) K/uL RBC (4.2-5.4) M/uL Hgb (12.0-16.0) g/dL Hct (37-47) % MCV (80-100) fL MCH (25-34) pg MCHC (32-36) g/dL RDW Std Deviation (36.4-46.3) fL RDW Coeff of Uma (11.5-14.5) % Plt Count (130-400) K/uL MPV (7.4-10.4) fL Immature Gran % (Auto) % Neut % (Auto) % Lymph % (Auto) % [place] % (Auto) % Eos % (Auto) % Baso % (Auto) % Neut # (Auto) (1.4-6.5) K/uL Lymph # (Auto) (1.2-3.4) K/uL [place] # (Auto) (0.11-0.59) K/uL Eos # (Auto) (0-0.5) K/uL Baso # (Auto) (0-0.2) K/uL Immature Gran # (Auto) (0.00-0.02) K/uL PT 10.9 (9.0-12.0) Seconds INR 1.0 (0.9-1.1) D-Dimer 2200 H* (0-500) ug/L FEU Sodium 134 L (136-145) mmol/L Potassium 3.3 L (3.5-5.1) mmol/L Chloride 102 (98-107) mmol/L Carbon Dioxide 27 (21-32) mmol/L Anion Gap 5.0 (3-11) BUN 15 (7-18) mg/dl Creatinine 0.79 (0.6-1.2) mg/dl Est Cr Clr Drug Dosing 75.3 ml/min Est GFR ( Amer) 90.4 Est GFR (Non-Af Amer) 78.0 BUN/Creatinine Ratio 18.7 (10-20) Glucose 116 H (70-99) mg/dl POC Glucose (70-99) mg/dl Lactate 1.4 (0.4-2.0) mmol/L Calcium 8.3 L (8.5-10.1) mg/dl Magnesium (1.8-2.4) mg/dl Ferritin (8-388) ng/ml Total Bilirubin 0.5 (0.2-1) mg/dl AST 42 H (15-37) U/L ALT 34 (12-78) U/L Alkaline Phosphatase 66 (45-117) U/L Total Creatine Kinase (26-192) U/L Troponin I < 0.015 (0-0.045) ng/ml C-Reactive Protein 3.06 H (0-0.29) mg/dl Total Protein 7.0 (6.4-8.2) gm/dl Albumin 3.1 L (3.4-5.0) gm/dl Globulin 3.9 (2.5-4.0) gm/dl Albumin/Globulin Ratio 0.8 L (0.9-2) Lipase 485 H (73-393) U/L Procalcitonin (0-0.5) ng/ml Urine Color Urine Appearance (Clear) Urine pH (4.5-7.5) Ur Specific [place] (1.000-1.030) Urine Protein (Negative) Urine Glucose (UA) (Negative) Urine Ketones (Negative) Urine Blood (Negative) Urine Nitrite (Negative) Urine Bilirubin (Negative) Urine Urobilinogen (Negative) Ur Leukocyte Esterase (Negative) Urine WBC (Auto) (0-5) /hpf Urine RBC (Auto) (0-4) /hpf U Hyaline Cast (Auto) (0-5) /lpf U Epithel Cells (Auto) (0-5) /lpf Urine Bacteria (Auto) (Negative) COVID-19 Eval Order SARS-CoV-2, RNA, NAAT (NEGATIVE) Blood Type Antibody Screen 02/08/20 02/08/20 Range/Units 12:37 12:37 WBC 2.74 L (4.8-10.8) K/uL RBC 4.76 (4.2-5.4) M/uL Hgb 14.4 (12.0-16.0) g/dL Hct 42.8 (37-47) % MCV 89.9 (80-100) fL MCH 30.3 (25-34) pg MCHC 33.6 (32-36) g/dL RDW Std Deviation (36.4-46.3) fL RDW Coeff of Uma (11.5-14.5) % Plt Count 142 (130-400) K/uL MPV (7.4-10.4) fL Immature Gran % (Auto) 0.0 % Neut % (Auto) 67.1 % Lymph % (Auto) 22.6 % [place] % (Auto) 9.9 % Eos % (Auto) 0.4 % Baso % (Auto) 0.0 % Neut # (Auto) 1.84 (1.4-6.5) K/uL Lymph # (Auto) 0.62 L (1.2-3.4) K/uL [place] # (Auto) 0.27 (0.11-0.59) K/uL Eos # (Auto) 0.01 (0-0.5) K/uL Baso # (Auto) 0.00 (0-0.2) K/uL Immature Gran # (Auto) 0.00 (0.00-0.02) K/uL PT (9.0-12.0) Seconds INR (0.9-1.1) D-Dimer (0-500) ug/L FEU Sodium (136-145) mmol/L Potassium (3.5-5.1) mmol/L Chloride (98-107) mmol/L Carbon Dioxide (21-32) mmol/L Anion Gap (3-11) BUN (7-18) mg/dl Creatinine (0.6-1.2) mg/dl Est Cr Clr Drug Dosing ml/min Est GFR ( Amer) Est GFR (Non-Af Amer) BUN/Creatinine Ratio (10-20) Glucose (70-99) mg/dl POC Glucose (70-99) mg/dl Lactate (0.4-2.0) mmol/L Calcium (8.5-10.1) mg/dl Magnesium (1.8-2.4) mg/dl Ferritin (8-388) ng/ml Total Bilirubin (0.2-1) mg/dl AST (15-37) U/L ALT (12-78) U/L Alkaline Phosphatase (45-117) U/L Total Creatine Kinase (26-192) U/L Troponin I (0-0.045) ng/ml C-Reactive Protein (0-0.29) mg/dl Total Protein (6.4-8.2) gm/dl Albumin (3.4-5.0) gm/dl Globulin (2.5-4.0) gm/dl Albumin/Globulin Ratio (0.9-2) Lipase (73-393) U/L Procalcitonin (0-0.5) ng/ml Urine Color Urine Appearance (Clear) Urine pH (4.5-7.5) Ur Specific [place] (1.000-1.030) Urine Protein (Negative) Urine Glucose (UA) (Negative) Urine Ketones (Negative) Urine Blood (Negative) Urine Nitrite (Negative) Urine Bilirubin (Negative) Urine Urobilinogen (Negative) Ur Leukocyte Esterase (Negative) Urine WBC (Auto) (0-5) /hpf Urine RBC (Auto) (0-4) /hpf U Hyaline Cast (Auto) (0-5) /lpf U Epithel Cells (Auto) (0-5) /lpf Urine Bacteria (Auto) (Negative) COVID-19 Eval Order SARS-CoV-2, RNA, NAAT (NEGATIVE) Blood Type B Positive Antibody Screen NEGATIVE Medications Administered Current Inpatient Medications Acetaminophen (Acetaminophen 325 Mg Tab) 650 mg PO Q4H PRN PRN Reason: Pain or Fever Stop: 03/09/20 17:24 Albuterol (Albuterol Hfa 8 Gm Inhaler) 2 puffs INH Q6R PRN PRN Reason: Shortness Of Breath Or Wheezin Stop: 03/09/20 18:59 Dextrose (Dextrose 50% 50 Ml Syringe) 25 - 50 ml IV UD PRN; Protocol PRN Reason: Hypoglycemia Protocol Stop: 03/09/20 17:24 Doxycycline Hyclate (Doxycycline Hyclate 100 Mg Cap) 100 mg PO BID@1000,2200 [facility] Stop: 02/15/20 21:59 Last Admin: 02/08/20 21:20 Dose: 100 mg Documented by: Enoxaparin Sodium (Enoxaparin Inj 40 Mg/0.4 Ml Syr) 40 mg SQ Q24H HARRY Stop: 03/09/20 17:59 Last Admin: 02/08/20 18:50 Dose: 40 mg Documented by: Folic Acid (Folic Acid 1 Mg Tab) 1 mg PO QAM HARRY Stop: 03/10/20 08:59 Glucagon (Glucagon For Inj 1 Mg Vial) 1 mg SQ UD PRN; Protocol PRN Reason: Hypoglycemia Protocol Stop: 03/09/20 17:24 Glucose (Glucose 10 Tabs/Tube) 4 - 8 tabs PO UD PRN; Protocol PRN Reason: Hypoglycemia Protocol Stop: 03/09/20 17:24 Glucose (Glucose 40% Gel 15 Gm Tube) 15 - 30 gm PO UD PRN; Protocol PRN Reason: Hypoglycemia Protocol Stop: 03/09/20 17:24 Guaifenesin (Guaifenesin 600 Mg Tabcr) 600 mg PO Q12 HARRY Stop: 03/10/20 08:59 Ceftriaxone Sodium 1,000 mg/ (Dextrose) 50 mls @ 100 mls/hr IV Q24H HARRY; Protocol Stop: 11/29/20 11:59 Dexamethasone 6 mg/ Syringe 1.5 mls @ 1 mls/min IV DAILY@0800 [facility] Stop: 02/17/20 08:02 Remdesivir 100 mg/ Sodium (Chloride) 250 mls @ 250 mls/hr IV Q24H [facility]; Protocol Stop: 02/12/20 16:59 Insulin Aspart (Insulin Aspart 100 Units/Ml 3 Ml Pen) 0 units SC ACHS [facility] Stop: 03/09/20 17:44 Last Admin: 02/08/20 21:00 Dose: Not Given Documented by: Lisinopril (Lisinopril 10 Mg Tab) 30 mg PO PM [facility] Stop: 03/09/20 20:59 Last Admin: 02/08/20 21:20 Dose: 30 mg Documented by: Metoprolol Succinate (Metoprolol Succ 50mg Ext Rel Tab) 50 mg PO PM [facility] Stop: 03/09/20 20:59 Last Admin: 02/08/20 21:20 Dose: 50 mg Documented by: Miscellaneous (Carbohydrates For Hypoglycemia ) 15 - 30 gm PO UD PRN PRN Reason: Hypoglycemia Protocol Stop: 03/09/20 17:24 Multivitamins (Multivitamin Tab) 1 tab PO QAM@0800 [facility] Stop: 03/10/20 07:59 Ondansetron HCl (Ondansetron Inj 2 Mg/Ml 2 Ml Vial) 4 mg IV Q6H PRN PRN Reason: Nausea Stop: 03/09/20 17:24 Pantoprazole Sodium (Pantoprazole 40 Mg Tab) 40 mg PO QAM@0800 [facility] Stop: 03/10/20 07:59 Polyethylene Glycol (Polyethylene (Miralax) 17 Gm Pack) 17 gm PO DAILY PRN PRN Reason: Constipation Stop: 03/09/20 17:24 Sodium Chloride (Sodium Chloride 0.9% 10ml Flush) 30 ml IV Q24H [facility] Stop: 02/12/20 18:01 Last Admin: 02/08/20 21:19 Dose: 30 ml Documented by: Thiamine HCl (Thiamine Hcl 100 Mg Tab) 100 mg PO QAM [facility] Stop: 03/10/20 08:59 Vitamin D (Cholecalciferol 1,000 Units 25 Mcg Tab) 1,000 units PO QAM@0800 [facility] Stop: 03/10/20 07:59 Zinc Sulfate (Zinc Sulfate 220 Mg Capsule) 220 mg PO QAM@0800 [facility] Stop: 03/10/20 07:59
[2020-02-09] MEDS: INSULIN ASPART 100 UNITS/ML 3 ML PEN SC SCH ×4 (09:56→21:22)
[2020-02-09] MEDS ORDERED: POTASSIUM CHLORIDE CRTAB 20 MEQ TABCR PO ONE ×2 (11:00→14:00)
[2020-02-09] MEDS: PANTOprazole 40 MG TAB PO SCH (11:47)
[2020-02-09] MEDS: MULTIVITAMIN TAB PO SCH (11:47)
[2020-02-09] MEDS: CHOLECALCIFEROL 1,000 UNITS 25 MCG TAB PO SCH (11:48)
[2020-02-09] MEDS: ZINC SULFATE 220 MG CAPSULE PO SCH (11:49)
[2020-02-09] MEDS: guaiFENesin 600 MG TABCR PO SCH ×2 (11:49→21:11)
[2020-02-09] MEDS: FOLIC ACID 1 MG TAB PO SCH (11:50)
[2020-02-09] MEDS: THIAMINE HCL 100 MG TAB PO SCH (11:50)
[2020-02-09] MEDS: DOXYCYCLINE HYCLATE 100 MG CAP PO SCH ×2 (11:50→21:10)
[2020-02-09] MEDS: dexAMETHasone 6 MG in SYRINGE 0 ML IV SCH (11:51)
[2020-02-09] MEDS: cefTRIAXone SODIUM 1,000 MG in DEXTROSE 5% 50 ML IV SCH (14:04)
[2020-02-09] MEDS: ENOXAPARIN INJ 40 MG/0.4 ML SYR SQ SCH (15:53)
[2020-02-09] MEDS: REMDESIVIR 100mg: Days 2-5 IV SCH (15:53)
[2020-02-09] MEDS: SODIUM CHLORIDE 0.9% 10ML FLUSH IV SCH (17:15)
[2020-02-09] MEDS ORDERED: ACETAMINOPHEN 325 MG TAB PO ONE (17:36)
[2020-02-09] MEDS ORDERED: FUROSEMIDE 20 MG in SYRINGE 0 ML IV PRN (17:45)
[2020-02-09] MEDS: lisinopril 10 MG TAB PO SCH (21:11)
[2020-02-09] MEDS: METOPROLOL SUCC 50MG EXT REL TAB PO SCH (21:11)
[2020-02-10 07:06] LABS: Estimated Average Glucose 134 mg/dl; Hemoglobin A1C 6.3 % (4.5-5.6)
[2020-02-10 07:26] LABS: Hematocrit (blood only) 44.3 % (37-47); Hemoglobin 14.6 g/dL (12.0-16.0); Mean Platelet Volume 10.5 fL (7.4-10.4); Platelet Count 216 K/uL (130-400); RDW Coefficient of Variation 13.6 % (11.5-14.5); RDW Standard Deviation 44.9 fL (36.4-46.3); Red Blood Count 4.87 M/uL (4.2-5.4); White Blood Count 4.47 K/uL (4.8-10.8)
--- NOTE | 2020-02-10 07:27 | Hospitalist Progress Note ---
Date of Service February 10, 2020 Assessment & Plan (1) Pneumonia due to 2019 novel coronavirus: Acute respiratory failure with hypoxia Multifocal Covid pneumonia CTA: No evidence for pulmonary embolus. Multifocal bilateral groundglass and consolidative airspace opacities consistent with a pneumonia. This likely represents a viral pneumonia. A superimposed bacterial pneumonia cannot be excluded. Normal procalcitonin Troponin negative CRP:3.06 COVID screen tested positive on 01/31/20 -- Done at [facility] (Obtain records) Check Biofire as likely false negative COVID screen in ED Blood cultures pending Started on high flow oxygen Also started on Remdesivir, Dexamethasone (day #3), plan for 5 days of remdesavir and up to 10 days of Dexamethasone Patient consented for convalescent plasma, plasma administered (02/07 night), and (02/08), IV lasix given w/ transfusions Consult pulmonology - recommend proning, incentive spirometry, guaifenesin, and antibiotics given possibility of superimposed bacterial infection is high (currently pt is on ceftriaxone and doxy) Isolation precautions Hypokalemia Hyponatremia likely secondary to GI loses Replete electrolytes as needed Monitor Diarrhea Likely secondary to Covid Stool studies ordered Now resolved, had 2 normal BMs today (02/09) HTN Continue lisinopril, metoprolol GERD Continue PPI Prediabetes Updated HbA1c 6.3% Expect hypoglycemia while on IV steroids Insulin sliding scale while hospitalized Elevated D-dimer CTA showed no PE Venous Dopplers negative for DVT DVT Px:Lovenox SQ CODE STATUS: Full code Admission and Anticipated Discharge Date Admission Date: February 08, 2020 Subjective Pt seen in follow up of COVID 19 infection, respiratory failure. Patient feels she is doing little better. She remains on high flow NC. She was proning, using IS and tries to lay down on her sides. Encouraged proning again. She is coughing and easily short of breath. No chest pain, palpitations, abdominal pain. reports diarrhea is better, she had 2 normal BMs today. Review of Systems Review of Systems: All systems reviewed & are unremarkable except as noted in HPI & below Constitutional: no fever and no chills Respiratory: + cough and + dyspnea Cardiovascular: no chest pain and no palpitations Gastrointestinal: no abdominal pain, no nausea, no vomiting and no diarrhea/loose stools Physical Exam Physical Exam: General Appearance: WD/WN female on HF NC, easily short of breath when speaking Head: normocephalic, Atraumatic Eyes: normal inspection, EOMI, PERRL Neck: supple, Trachea midline Respiratory/Chest: Normal breath sounds, B/L Scattered rhonchi Cardiovascular: S1, S2, No murmur Abdomen/GI:Soft, Non tender, Bowel sounds present Extremities/MSK: normal inspection, no LE edema, moves extremities spontaneously Neurologic/Psych: AAOX3, speech fluent, answers questions appropriately, no facial asymmetry, moves extremities spontaneously Skin: normal color, warm, dry Results & Data Results & Data ([facility]) Vital Signs (Past 12 Hours) Vital Signs Temp Pulse Pulse Resp BP BP Pulse Ox 02/10/20 07:20 36.5 C 81 23 146/96 H 91 02/10/20 04:00 36.6 C 78 18 149/101 H 92 02/10/20 03:34 77 20 91 02/09/20 23:41 84 20 91 02/09/20 23:31 82 92 02/09/20 23:26 36.7 C 82 20 140/90 94 02/09/20 22:26 36.6 C 85 16 133/82 94 02/09/20 21:56 36.5 C 85 16 152/94 H 85 L 02/09/20 21:41 36.6 C 89 16 149/100 H 92 02/09/20 21:22 36.5 C 90 16 140/93 92 02/09/20 21:09 92 H 143/94 H 95 02/09/20 20:08 81 16 89 L 02/09/20 19:52 37 C 93 H 16 121/64 94 Laboratory Results 02/10/20 02/10/20 02/10/20 Range/Units 16:19 11:12 07:18 WBC (4.8-10.8) K/uL RBC (4.2-5.4) M/uL Hgb (12.0-16.0) g/dL Hct (37-47) % MCV (80-100) fL MCH (25-34) pg MCHC (32-36) g/dL RDW Std Deviation (36.4-46.3) fL RDW Coeff of Uma (11.5-14.5) % Plt Count (130-400) K/uL MPV (7.4-10.4) fL Sodium (136-145) mmol/L Potassium (3.5-5.1) mmol/L Chloride (98-107) mmol/L Carbon Dioxide (21-32) mmol/L Anion Gap (3-11) BUN (7-18) mg/dl Creatinine (0.6-1.2) mg/dl Est Cr Clr Drug Dosing ml/min Est GFR ( Amer) Est GFR (Non-Af Amer) BUN/Creatinine Ratio (10-20) Glucose (70-99) mg/dl POC Glucose 143 H 133 H 114 H (70-99) mg/dl Estimat Average Glucose mg/dl Hemoglobin A1c (4.5-5.6) % Calcium (8.5-10.1) mg/dl Magnesium (1.8-2.4) mg/dl Total Bilirubin (0.2-1) mg/dl AST (15-37) U/L ALT (12-78) U/L Alkaline Phosphatase (45-117) U/L Total Protein (6.4-8.2) gm/dl Albumin (3.4-5.0) gm/dl Globulin (2.5-4.0) gm/dl Albumin/Globulin Ratio (0.9-2) 02/10/20 02/10/20 02/09/20 Range/Units 05:36 05:36 20:38 WBC 4.47 L (4.8-10.8) K/uL RBC 4.87 (4.2-5.4) M/uL Hgb 14.6 (12.0-16.0) g/dL Hct 44.3 (37-47) % MCV 91.0 (80-100) fL MCH 30.0 (25-34) pg MCHC 33.0 (32-36) g/dL RDW Std Deviation 44.9 (36.4-46.3) fL RDW Coeff of Uma 13.6 (11.5-14.5) % Plt Count 216 (130-400) K/uL MPV 10.5 H (7.4-10.4) fL Sodium 138 (136-145) mmol/L Potassium 3.9 (3.5-5.1) mmol/L Chloride 104 (98-107) mmol/L Carbon Dioxide 29 (21-32) mmol/L Anion Gap 6.0 (3-11) BUN 23 H (7-18) mg/dl Creatinine 0.77 (0.6-1.2) mg/dl Est Cr Clr Drug Dosing 77.7 ml/min Est GFR ( Amer) 93.3 Est GFR (Non-Af Amer) 80.5 BUN/Creatinine Ratio 30.0 H (10-20) Glucose 110 H (70-99) mg/dl POC Glucose 135 H (70-99) mg/dl Estimat Average Glucose mg/dl Hemoglobin A1c (4.5-5.6) % Calcium 9.5 (8.5-10.1) mg/dl Magnesium 2.4 (1.8-2.4) mg/dl Total Bilirubin 0.6 (0.2-1) mg/dl AST 41 H (15-37) U/L ALT 37 (12-78) U/L Alkaline Phosphatase 74 (45-117) U/L Total Protein 7.6 (6.4-8.2) gm/dl Albumin 3.2 L (3.4-5.0) gm/dl Globulin 4.4 H (2.5-4.0) gm/dl Albumin/Globulin Ratio 0.7 L (0.9-2) 02/09/20 Range/Units 05:38 WBC (4.8-10.8) K/uL RBC (4.2-5.4) M/uL Hgb (12.0-16.0) g/dL Hct (37-47) % MCV (80-100) fL MCH (25-34) pg MCHC (32-36) g/dL RDW Std Deviation (36.4-46.3) fL RDW Coeff of Uma (11.5-14.5) % Plt Count (130-400) K/uL MPV (7.4-10.4) fL Sodium (136-145) mmol/L Potassium (3.5-5.1) mmol/L Chloride (98-107) mmol/L Carbon Dioxide (21-32) mmol/L Anion Gap (3-11) BUN (7-18) mg/dl Creatinine (0.6-1.2) mg/dl Est Cr Clr Drug Dosing ml/min Est GFR ( Amer) Est GFR (Non-Af Amer) BUN/Creatinine Ratio (10-20) Glucose (70-99) mg/dl POC Glucose (70-99) mg/dl Estimat Average Glucose 134 mg/dl Hemoglobin A1c 6.3 H (4.5-5.6) % Calcium (8.5-10.1) mg/dl Magnesium (1.8-2.4) mg/dl Total Bilirubin (0.2-1) mg/dl AST (15-37) U/L ALT (12-78) U/L Alkaline Phosphatase (45-117) U/L Total Protein (6.4-8.2) gm/dl Albumin (3.4-5.0) gm/dl Globulin (2.5-4.0) gm/dl Albumin/Globulin Ratio (0.9-2) Medications Administered Current Inpatient Medications Acetaminophen (Acetaminophen 325 Mg Tab) 650 mg PO Q4H PRN PRN Reason: Pain or Fever Stop: 03/09/20 17:24 Albuterol (Albuterol Hfa 8 Gm Inhaler) 2 puffs INH Q6R PRN PRN Reason: Shortness Of Breath Or Wheezin Stop: 03/09/20 18:59 Dextrose (Dextrose 50% 50 Ml Syringe) 25 - 50 ml IV UD PRN; Protocol PRN Reason: Hypoglycemia Protocol Stop: 03/09/20 17:24 Doxycycline Hyclate (Doxycycline Hyclate 100 Mg Cap) 100 mg PO BID@1000,2200 [facility] Stop: 02/15/20 21:59 Last Admin: 02/09/20 21:10 Dose: 100 mg Documented by: Enoxaparin Sodium (Enoxaparin Inj 40 Mg/0.4 Ml Syr) 40 mg SQ Q24H [facility] Stop: 03/09/20 17:59 Last Admin: 02/09/20 15:53 Dose: 40 mg Documented by: Folic Acid (Folic Acid 1 Mg Tab) 1 mg PO QAM [facility] Stop: 03/10/20 08:59 Last Admin: 02/09/20 11:50 Dose: 1 mg Documented by: Glucagon (Glucagon For Inj 1 Mg Vial) 1 mg SQ UD PRN; Protocol PRN Reason: Hypoglycemia Protocol Stop: 03/09/20 17:24 Glucose (Glucose 10 Tabs/Tube) 4 - 8 tabs PO UD PRN; Protocol PRN Reason: Hypoglycemia Protocol Stop: 03/09/20 17:24 Glucose (Glucose 40% Gel 15 Gm Tube) 15 - 30 gm PO UD PRN; Protocol PRN Reason: Hypoglycemia Protocol Stop: 03/09/20 17:24 Guaifenesin (Guaifenesin 600 Mg Tabcr) 600 mg PO Q12 [facility] Stop: 03/10/20 08:59 Last Admin: 02/09/20 21:11 Dose: 600 mg Documented by: Ceftriaxone Sodium 1,000 mg/ (Dextrose) 50 mls @ 100 mls/hr IV Q24H [facility]; Protocol Stop: 02/16/20 11:59 Last Infusion: 02/09/20 15:52 Dose: Infused Documented by: Dexamethasone 6 mg/ Syringe 1.5 mls @ 1 mls/min IV DAILY@0800 [facility] Stop: 02/17/20 08:02 Last Admin: 02/09/20 11:51 Dose: 1 mls/min Documented by: Remdesivir 100 mg/ Sodium (Chloride) 250 mls @ 250 mls/hr IV Q24H [facility]; Protocol Stop: 02/12/20 16:59 Last Infusion: 02/09/20 17:15 Dose: Infused Documented by: Furosemide 20 mg/ Syringe 2 mls @ 4 mls/min IV ONE PRN PRN Reason: give with convalescent plasma Stop: 03/10/20 17:44 Insulin Aspart (Insulin Aspart 100 Units/Ml 3 Ml Pen) 0 units SC ACHS [facility] Stop: 03/09/20 17:44 Last Admin: 02/09/20 21:22 Dose: Not Given Documented by: Lisinopril (Lisinopril 10 Mg Tab) 30 mg PO PM [facility] Stop: 03/09/20 20:59 Last Admin: 02/09/20 21:11 Dose: 30 mg Documented by: Metoprolol Succinate (Metoprolol Succ 50mg Ext Rel Tab) 50 mg PO PM [facility] Stop: 03/09/20 20:59 Last Admin: 02/09/20 21:11 Dose: 50 mg Documented by: Miscellaneous (Carbohydrates For Hypoglycemia ) 15 - 30 gm PO UD PRN PRN Reason: Hypoglycemia Protocol Stop: 03/09/20 17:24 Multivitamins (Multivitamin Tab) 1 tab PO QAM@0800 [facility] Stop: 03/10/20 07:59 Last Admin: 02/09/20 11:47 Dose: 1 tab Documented by: Ondansetron HCl (Ondansetron Inj 2 Mg/Ml 2 Ml Vial) 4 mg IV Q6H PRN PRN Reason: Nausea Stop: 03/09/20 17:24 Pantoprazole Sodium (Pantoprazole 40 Mg Tab) 40 mg PO QAM@0800 [facility] Stop: 03/10/20 07:59 Last Admin: 02/09/20 11:47 Dose: 40 mg Documented by: Polyethylene Glycol (Polyethylene (Miralax) 17 Gm Pack) 17 gm PO DAILY PRN PRN Reason: Constipation Stop: 03/09/20 17:24 Sodium Chloride (Sodium Chloride 0.9% 10ml Flush) 30 ml IV Q24H [facility] Stop: 02/12/20 18:01 Last Admin: 02/09/20 17:15 Dose: 30 ml Documented by: Thiamine HCl (Thiamine Hcl 100 Mg Tab) 100 mg PO QAM [facility] Stop: 03/10/20 08:59 Last Admin: 02/09/20 11:50 Dose: 100 mg Documented by: Vitamin D (Cholecalciferol 1,000 Units 25 Mcg Tab) 1,000 units PO QAM@0800 [facility] Stop: 03/10/20 07:59 Last Admin: 02/09/20 11:48 Dose: 1,000 units Documented by: Zinc Sulfate (Zinc Sulfate 220 Mg Capsule) 220 mg PO QAM@0800 [facility] Stop: 03/10/20 07:59 Last Admin: 02/09/20 11:49 Dose: 220 mg Documented by:
[2020-02-10 07:56] LABS: Albumin Level 3.2 gm/dl (3.4-5.0); Calcium 9.5 mg/dl (8.5-10.1); Creatinine Clr Calc Pharmacy 77.7 ml/min; Est GFR (African American) 93.3; Est GFR (Non-African American) 80.5; Magnesium 2.4 mg/dl (1.8-2.4); Potassium 3.9 mmol/L (3.5-5.1)
[2020-02-10 07:59] LABS: Albumin Globulin Ratio 0.7 (0.9-2); Bilirubin,Total 0.6 mg/dl (0.2-1); Globulin 4.4 gm/dl (2.5-4.0); Total Protein 7.6 gm/dl (6.4-8.2)
[2020-02-10] MEDS: INSULIN ASPART 100 UNITS/ML 3 ML PEN SC SCH ×4 (08:20→20:49)
[2020-02-10] MEDS: FOLIC ACID 1 MG TAB PO SCH (09:17)
[2020-02-10] MEDS: CHOLECALCIFEROL 1,000 UNITS 25 MCG TAB PO SCH (09:17)
[2020-02-10] MEDS: guaiFENesin 600 MG TABCR PO SCH ×2 (09:17→20:52)
[2020-02-10] MEDS: MULTIVITAMIN TAB PO SCH (09:17)
[2020-02-10] MEDS: THIAMINE HCL 100 MG TAB PO SCH (09:17)
[2020-02-10] MEDS: dexAMETHasone 6 MG in SYRINGE 0 ML IV SCH (09:17)
[2020-02-10] MEDS: PANTOprazole 40 MG TAB PO SCH (09:17)
[2020-02-10] MEDS: DOXYCYCLINE HYCLATE 100 MG CAP PO SCH ×2 (09:17→21:00)
[2020-02-10] MEDS: ZINC SULFATE 220 MG CAPSULE PO SCH (09:17)
[2020-02-10] MEDS: cefTRIAXone SODIUM 1,000 MG in DEXTROSE 5% 50 ML IV SCH (11:48)
--- NOTE | 2020-02-10 12:11 | Pulmonology Progress Note ---
Date of Service February 10, 2020 Assessment & Plan (1) Acute respiratory failure with hypoxia: Impression: 65-year-old female with diffuse pulmonary infiltrates in hypoxemic respiratory failure. She had a positive Covid test in the outpatient setting January 30, not September 29 as noted in the initial pulmonary consultation. She is being empirically treated for Covid with dexamethasone and remdesivir. She has been stable overnight regarding her oxygen requirement. Recommendations: 1. COVID-19 pneumonia: Continue protocol with dexamethasone and remdesivir. Given that she is 10 days out, I do not think convalescent plasma offers much in the way of benefit at this point time. Self proning may be considered depending on patient's response and transition to noninvasive positive pressure ventilation should the patient fail. Agree with empiric antibiotics to cover potential community-acquired pneumonia and the patient is currently on Rocephin and doxycycline 2. Acute hypoxemic respiratory failure: Secondary to pneumonia atelectasis and pulmonary infiltrates. Continue to wean oxygen as tolerated. Try and defend oxygen saturation 85 to 88%. 3. DVT prophylaxis recommended and is in place with Lovenox. We will continue to follow with you. Feel free to contact us if we can be of additional assistance. The patient is critically ill at this point time with significant possibility of clinical deterioration. A total of 35 minutes was spent critical care time evaluating managing this patient (2) Abnormal CT scan of lung: Admission and Anticipated Discharge Date Admission Date: February 08, 2020 Subjective Patient believes she may be feeling slightly better. She remains on high flow oxygen. She is coughing and expectorating small amounts of phlegm. No chest pain or palpitations. Review of Systems Review of Systems: All systems reviewed & are unremarkable except as noted in HPI & below Physical Exam Constitutional: WD/WN, vitals as above Neck: trachea midline, no thyromegaly Respiratory: + respiratory distress and + labored breathing Dyspnea after 4-5 words Cardiovascular: RRR, no murmur, no edema Gastrointestinal (Abdomen): normal bowel sounds, soft, nontender, no hepatosplenomegaly Musculoskeletal: Extremities: extremities normal to inspection Skin: no rashes, warm and dry Neurologic: Nonfocal exam Lymphatic: no cervical lymphadenopathy Results & Data Results & Data ([facility]) Vital Signs (Past 12 Hours) Vital Signs Temp Pulse Pulse Resp BP Pulse Ox 02/10/20 11:34 89 22 89 L 02/10/20 11:13 36.5 C 84 23 156/98 H 92 02/10/20 08:00 75 02/10/20 07:49 73 22 89 L 02/10/20 07:20 36.5 C 81 23 146/96 H 91 02/10/20 04:00 36.6 C 78 18 149/101 H 92 02/10/20 03:34 77 20 91 Laboratory Results 02/10/20 05:36 02/10/20 05:36 Diagnostic Findings Duplex US negative. PG Care Time/CCT Total # of Minutes Spent Total Time Spent with Patient: Total time spent is greater than 50% in coordination of care (as documented) at patient's floor/unit and/or counseling patient: Coding Level of Care Code None Diagnoses Acute respiratory failure with hypoxia J96.[address] scan of lung R91.8 Time Spent (min) 35 Comment 21172, 35 minutes critical care time
[2020-02-10] MEDS ORDERED: FUROSEMIDE 20 MG in SYRINGE 0 ML IV SCH (12:30)
[2020-02-10] MEDS ORDERED: COUGH DROP (SUGAR FREE) LOZ 24 LOZ/1 BOX BUCCAL STA (15:50)
[2020-02-10] MEDS ORDERED: COUGH DROP (SUGAR FREE) LOZ 24 LOZ/1 BOX BUCCAL PRN (15:50)
[2020-02-10] MEDS: REMDESIVIR 100mg: Days 2-5 IV SCH (16:13)
[2020-02-10] MEDS: ENOXAPARIN INJ 40 MG/0.4 ML SYR SQ SCH (16:14)
[2020-02-10] MEDS: SODIUM CHLORIDE 0.9% 10ML FLUSH IV SCH (18:12)
[2020-02-10] MEDS: METOPROLOL SUCC 50MG EXT REL TAB PO SCH (20:51)
[2020-02-10] MEDS: lisinopril 10 MG TAB PO SCH (20:52)
[2020-02-11 07:18] LABS: Hemoglobin 14.4 g/dL (12.0-16.0); Mean Corpuscular Hemoglobin 29.9 pg (25-34); Mean Corpuscular Hgb Conc 33.5 g/dL (32-36); Mean Corpuscular Volume 89.4 fL (80-100); Mean Platelet Volume 10.4 fL (7.4-10.4); Platelet Count 202 K/uL (130-400); RDW Coefficient of Variation 13.3 % (11.5-14.5); RDW Standard Deviation 43.9 fL (36.4-46.3); Red Blood Count 4.81 M/uL (4.2-5.4); White Blood Count 7.26 K/uL (4.8-10.8)
[2020-02-11 07:45] LABS: BUN Creatinine Ratio 34.7 (10-20); Calcium 8.9 mg/dl (8.5-10.1); Creatinine Clr Calc Pharmacy 84.3 ml/min; Est GFR (African American) 102.9; Est GFR (Non-African American) 88.8; Magnesium 2.5 mg/dl (1.8-2.4); Potassium 3.5 mmol/L (3.5-5.1)
[2020-02-11 07:48] LABS: Albumin Globulin Ratio 0.7 (0.9-2); Bilirubin,Total 0.7 mg/dl (0.2-1); Globulin 4.3 gm/dl (2.5-4.0); Phosphorus 3.4 mg/dl (2.5-4.9); Total Protein 7.3 gm/dl (6.4-8.2)
[2020-02-11] MEDS ORDERED: POTASSIUM CHLORIDE CRTAB 20 MEQ TABCR PO STA (07:58)
--- NOTE | 2020-02-11 08:01 | Hospitalist Progress Note ---
Date of Service February 11, 2020 Assessment & Plan (1) Pneumonia due to 2019 novel coronavirus: Acute respiratory failure with hypoxia Multifocal Covid pneumonia CTA: No evidence for pulmonary embolus. Multifocal bilateral groundglass and consolidative airspace opacities consistent with a pneumonia. This likely represents a viral pneumonia. A superimposed bacterial pneumonia cannot be excluded. Normal procalcitonin Troponin negative CRP:3.06 COVID screen tested positive on 01/31/20 -- Done at [facility] (Obtain records) Check Biofire as likely false negative COVID screen in ED Blood cultures pending Started on high flow oxygen Also started on Remdesivir, Dexamethasone plan for 5 days of remdesavir and up to 10 days of Dexamethasone Patient consented for convalescent plasma, plasma administered (02/07 night), and (02/08), IV lasix given w/ transfusions Consult pulmonology - recommend proning, incentive spirometry, guaifenesin, and antibiotics given possibility of superimposed bacterial infection is high (currently pt is on ceftriaxone and doxy) Isolation precautions Hypokalemia Hyponatremia likely secondary to GI loses Replete electrolytes as needed Monitor Diarrhea Likely secondary to Covid Stool studies ordered Now resolved HTN Continue lisinopril, metoprolol GERD Continue PPI Prediabetes Updated HbA1c 6.3% Expect hypoglycemia while on IV steroids Insulin sliding scale while hospitalized Elevated D-dimer CTA showed no PE Venous Dopplers negative for DVT DVT Px:Lovenox SQ CODE STATUS: Full code Admission and Anticipated Discharge Date Admission Date: February 08, 2020 Subjective Pt is laying in bed on HF NC, states that she is breathing easier now. Diarrhea has resolved. Denies fever, chills, chest pain, abd. pain. She is proning or laying on sides, also she is using incentive spirometer. Review of Systems Review of Systems: All systems reviewed & are unremarkable except as noted in HPI & below Constitutional: no fever and no chills Respiratory: + cough and + dyspnea Cardiovascular: no chest pain and no palpitations Gastrointestinal: no abdominal pain, no nausea and no vomiting Physical Exam Physical Exam: General Appearance: WD/WN female on HF NC Head: normocephalic, Atraumatic Eyes: normal inspection, EOMI, PERRL Neck: supple, Trachea midline Respiratory/Chest: Normal breath sounds, B/L mild Scattered rhonchi Cardiovascular: S1, S2, No murmur Abdomen/GI:Soft, Non tender, Bowel sounds present Extremities/MSK: normal inspection, no LE edema, moves extremities spontaneously Neurologic/Psych: AAOX3, speech fluent, answers questions appropriately, no facial asymmetry, moves extremities spontaneously Skin: normal color, warm, dry Results & Data Results & Data ([facility]) Vital Signs (Past 12 Hours) Vital Signs Temp Pulse Pulse Resp BP Pulse Ox 02/11/20 07:39 36.5 C 75 20 120/83 90 02/11/20 07:37 80 02/11/20 07:18 80 18 92 02/11/20 04:02 78 20 100 02/11/20 02:27 36.6 C 77 20 133/86 90 02/10/20 23:27 36.6 C 76 20 139/97 91 02/10/20 23:02 83 20 96 02/10/20 20:01 89 18 90 Laboratory Results 02/11/20 02/11/20 02/11/20 Range/Units 07:22 05:37 05:37 WBC 7.26 (4.8-10.8) K/uL RBC 4.81 (4.2-5.4) M/uL Hgb 14.4 (12.0-16.0) g/dL Hct 43.0 (37-47) % MCV 89.4 (80-100) fL MCH 29.9 (25-34) pg MCHC 33.5 (32-36) g/dL RDW Std Deviation 43.9 (36.4-46.3) fL RDW Coeff of Uma 13.3 (11.5-14.5) % Plt Count 202 (130-400) K/uL MPV 10.4 (7.4-10.4) fL Sodium 137 (136-145) mmol/L Potassium 3.5 (3.5-5.1) mmol/L Chloride 104 (98-107) mmol/L Carbon Dioxide 28 (21-32) mmol/L Anion Gap 5.0 (3-11) BUN 25 H (7-18) mg/dl Creatinine 0.71 (0.6-1.2) mg/dl Est Cr Clr Drug Dosing 84.3 ml/min Est GFR ( Amer) 102.9 Est GFR (Non-Af Amer) 88.8 BUN/Creatinine Ratio 34.7 H (10-20) Glucose 98 (70-99) mg/dl POC Glucose 95 (70-99) mg/dl Calcium 8.9 (8.5-10.1) mg/dl Phosphorus 3.4 (2.5-4.9) mg/dl Magnesium 2.5 H (1.8-2.4) mg/dl Total Bilirubin 0.7 (0.2-1) mg/dl AST 35 (15-37) U/L ALT 37 (12-78) U/L Alkaline Phosphatase 76 (45-117) U/L Total Protein 7.3 (6.4-8.2) gm/dl Albumin 3.0 L (3.4-5.0) gm/dl Globulin 4.3 H (2.5-4.0) gm/dl Albumin/Globulin Ratio 0.7 L (0.9-2) 02/10/20 02/10/20 02/10/20 Range/Units 20:09 16:19 11:12 WBC (4.8-10.8) K/uL RBC (4.2-5.4) M/uL Hgb (12.0-16.0) g/dL Hct (37-47) % MCV (80-100) fL MCH (25-34) pg MCHC (32-36) g/dL RDW Std Deviation (36.4-46.3) fL RDW Coeff of Uma (11.5-14.5) % Plt Count (130-400) K/uL MPV (7.4-10.4) fL Sodium (136-145) mmol/L Potassium (3.5-5.1) mmol/L Chloride (98-107) mmol/L Carbon Dioxide (21-32) mmol/L Anion Gap (3-11) BUN (7-18) mg/dl Creatinine (0.6-1.2) mg/dl Est Cr Clr Drug Dosing ml/min Est GFR ( Amer) Est GFR (Non-Af Amer) BUN/Creatinine Ratio (10-20) Glucose (70-99) mg/dl POC Glucose 143 H 143 H 133 H (70-99) mg/dl Calcium (8.5-10.1) mg/dl Phosphorus (2.5-4.9) mg/dl Magnesium (1.8-2.4) mg/dl Total Bilirubin (0.2-1) mg/dl AST (15-37) U/L ALT (12-78) U/L Alkaline Phosphatase (45-117) U/L Total Protein (6.4-8.2) gm/dl Albumin (3.4-5.0) gm/dl Globulin (2.5-4.0) gm/dl Albumin/Globulin Ratio (0.9-2) Medications Administered Current Inpatient Medications Acetaminophen (Acetaminophen 325 Mg Tab) 650 mg PO Q4H PRN PRN Reason: Pain or Fever Stop: 03/09/20 17:24 Albuterol (Albuterol Hfa 8 Gm Inhaler) 2 puffs INH Q6R PRN PRN Reason: Shortness Of Breath Or Wheezin Stop: 03/09/20 18:59 Dextrose (Dextrose 50% 50 Ml Syringe) 25 - 50 ml IV UD PRN; Protocol PRN Reason: Hypoglycemia Protocol Stop: 03/09/20 17:24 Doxycycline Hyclate (Doxycycline Hyclate 100 Mg Cap) 100 mg PO BID@1000,2200 [facility] Stop: 02/15/20 21:59 Last Admin: 02/10/20 21:00 Dose: 100 mg Documented by: Enoxaparin Sodium (Enoxaparin Inj 40 Mg/0.4 Ml Syr) 40 mg SQ Q24H [facility] Stop: 03/09/20 17:59 Last Admin: 02/10/20 16:14 Dose: 40 mg Documented by: Folic Acid (Folic Acid 1 Mg Tab) 1 mg PO QAM [facility] Stop: 03/10/20 08:59 Last Admin: 02/10/20 09:17 Dose: 1 mg Documented by: Glucagon (Glucagon For Inj 1 Mg Vial) 1 mg SQ UD PRN; Protocol PRN Reason: Hypoglycemia Protocol Stop: 03/09/20 17:24 Glucose (Glucose 10 Tabs/Tube) 4 - 8 tabs PO UD PRN; Protocol PRN Reason: Hypoglycemia Protocol Stop: 03/09/20 17:24 Glucose (Glucose 40% Gel 15 Gm Tube) 15 - 30 gm PO UD PRN; Protocol PRN Reason: Hypoglycemia Protocol Stop: 03/09/20 17:24 Guaifenesin (Guaifenesin 600 Mg Tabcr) 600 mg PO Q12 [facility] Stop: 03/10/20 08:59 Last Admin: 02/10/20 20:52 Dose: 600 mg Documented by: Ceftriaxone Sodium 1,000 mg/ (Dextrose) 50 mls @ 100 mls/hr IV Q24H [facility]; Protocol Stop: 02/16/20 11:59 Last Infusion: 02/10/20 12:46 Dose: Infused Documented by: Dexamethasone 6 mg/ Syringe 1.5 mls @ 1 mls/min IV DAILY@0800 [facility] Stop: 02/17/20 08:02 Last Admin: 02/10/20 09:17 Dose: 1 mls/min Documented by: Remdesivir 100 mg/ Sodium (Chloride) 250 mls @ 250 mls/hr IV Q24H [facility]; Protocol Stop: 02/12/20 16:59 Last Infusion: 02/10/20 18:12 Dose: Infused Documented by: Furosemide 20 mg/ Syringe 2 mls @ 4 mls/min IV ONE PRN PRN Reason: give with convalescent plasma Stop: 03/10/20 17:44 Last Admin: 02/10/20 13:18 Dose: 4 mls/min Documented by: Insulin Aspart (Insulin Aspart 100 Units/Ml 3 Ml Pen) 0 units SC ACHS [facility] Stop: 03/09/20 17:44 Last Admin: 02/10/20 20:49 Dose: Not Given Documented by: Lisinopril (Lisinopril 10 Mg Tab) 30 mg PO PM [facility] Stop: 03/09/20 20:59 Last Admin: 02/10/20 20:52 Dose: 30 mg Documented by: Menthol (Cough Drop (Sugar Free) Bari 24 Bari/1 Box) 1 bari BUCCAL Q1H PRN PRN Reason: Sore Throat Stop: 03/11/20 15:49 Metoprolol Succinate (Metoprolol Succ 50mg Ext Rel Tab) 50 mg PO PM [facility] Stop: 03/09/20 20:59 Last Admin: 02/10/20 20:51 Dose: 50 mg Documented by: Miscellaneous (Carbohydrates For Hypoglycemia ) 15 - 30 gm PO UD PRN PRN Reason: Hypoglycemia Protocol Stop: 03/09/20 17:24 Multivitamins (Multivitamin Tab) 1 tab PO QAM@0800 [facility] Stop: 03/10/20 07:59 Last Admin: 02/10/20 09:17 Dose: 1 tab Documented by: Ondansetron HCl (Ondansetron Inj 2 Mg/Ml 2 Ml Vial) 4 mg IV Q6H PRN PRN Reason: Nausea Stop: 03/09/20 17:24 Pantoprazole Sodium (Pantoprazole 40 Mg Tab) 40 mg PO QAM@0800 [facility] Stop: 03/10/20 07:59 Last Admin: 02/10/20 09:17 Dose: 40 mg Documented by: Polyethylene Glycol (Polyethylene (Miralax) 17 Gm Pack) 17 gm PO DAILY PRN PRN Reason: Constipation Stop: 03/09/20 17:24 Potassium Chloride (Potassium Chloride Crtab 20 Meq Tabcr) 40 meq PO NOW STA Stop: 02/11/20 07:59 Sodium Chloride (Sodium Chloride 0.9% 10ml Flush) 30 ml IV Q24H [facility] Stop: 02/12/20 18:01 Last Admin: 02/10/20 18:12 Dose: 30 ml Documented by: Thiamine HCl (Thiamine Hcl 100 Mg Tab) 100 mg PO QAM [facility] Stop: 03/10/20 08:59 Last Admin: 02/10/20 09:17 Dose: 100 mg Documented by: Vitamin D (Cholecalciferol 1,000 Units 25 Mcg Tab) 1,000 units PO QAM@0800 [facility] Stop: 03/10/20 07:59 Last Admin: 02/10/20 09:17 Dose: 1,000 units Documented by: Zinc Sulfate (Zinc Sulfate 220 Mg Capsule) 220 mg PO QAM@0800 [facility] Stop: 03/10/20 07:59 Last Admin: 02/10/20 09:17 Dose: 220 mg Documented by:
--- NOTE | 2020-02-11 08:27 | XRay Report ---
XR chest 1V portable CLINICAL HISTORY: Bilateral pneumonia COMPARISON STUDY: 02/08/2020 FINDINGS: The cardiac and mediastinal contours remain stable. There are improving bilateral pulmonary airspace opacities. There are no pleural effusions.[ IMPRESSION: Significant improvement in the bilateral pulmonary airspace opacities. ACT 112: Negative or not required by law. Electronically signed by: Renan Rivas M.D. 02/11/2020 8:26 AM
[2020-02-11] MEDS: dexAMETHasone 6 MG in SYRINGE 0 ML IV SCH (09:09)
[2020-02-11] MEDS: THIAMINE HCL 100 MG TAB PO SCH (09:10)
[2020-02-11] MEDS: MULTIVITAMIN TAB PO SCH (09:10)
[2020-02-11] MEDS: DOXYCYCLINE HYCLATE 100 MG CAP PO SCH ×2 (09:10→21:16)
[2020-02-11] MEDS: ZINC SULFATE 220 MG CAPSULE PO SCH (09:11)
[2020-02-11] MEDS: CHOLECALCIFEROL 1,000 UNITS 25 MCG TAB PO SCH (09:11)
[2020-02-11] MEDS: PANTOprazole 40 MG TAB PO SCH (09:11)
[2020-02-11] MEDS: FOLIC ACID 1 MG TAB PO SCH (09:11)
[2020-02-11] MEDS: guaiFENesin 600 MG TABCR PO SCH ×2 (09:11→21:16)
[2020-02-11] MEDS: INSULIN ASPART 100 UNITS/ML 3 ML PEN SC SCH ×4 (09:12→21:24)
[2020-02-11] MEDS: cefTRIAXone SODIUM 1,000 MG in DEXTROSE 5% 50 ML IV SCH (12:34)
--- NOTE | 2020-02-11 15:21 | Pulmonology Progress Note ---
Date of Service February 11, 2020 Assessment & Plan (1) Acute respiratory failure with hypoxia: Impression: 65-year-old female with diffuse pulmonary infiltrates in hypoxemic respiratory failure. She had a positive Covid test in the outpatient setting January 30, not September 29 as noted in the initial pulmonary consultation. She is being empirically treated for Covid with dexamethasone and remdesivir. She has been stable overnight regarding her oxygen requirement. Recommendations: 1. COVID-19 pneumonia: Continue protocol with dexamethasone and remdesivir. No indication for convalescent plasma. Encouraged self proning. Could consider BiPAP if she fails but oxygen requirements appear to be trending in a positive direction. Agree with empiric antibiotics to cover potential community-acquired pneumonia and the patient is currently on Rocephin and doxycycline 2. Acute hypoxemic respiratory failure: Secondary to pneumonia atelectasis and pulmonary infiltrates. Continue to wean oxygen as tolerated. Try and defend oxygen saturation 85 to 88%. 3. DVT prophylaxis recommended and is in place with Lovenox. Pulmonary is available to assist if needed. Feel free to contact us with questions or concerns. (2) Abnormal CT scan of lung: Admission and Anticipated Discharge Date Admission Date: February 08, 2020 Subjective Seen and examined. The patient is currently self pronating with improvement in her oxygen requirement. She reports that she is feeling may be somewhat better. Review of Systems Review of Systems: Unchanged from prior Physical Exam Constitutional: WD/WN, vitals as above Neck: trachea midline, no thyromegaly Respiratory: + respiratory distress and + labored breathing Cardiovascular: RRR, no murmur, no edema Gastrointestinal (Abdomen): normal bowel sounds, soft, nontender, no hepatosplenomegaly Musculoskeletal: Extremities: extremities normal to inspection Skin: no rashes, warm and dry Lymphatic: no cervical lymphadenopathy Results & Data Results & Data ([facility]) Vital Signs (Past 12 Hours) Vital Signs Temp Pulse Pulse Resp BP Pulse Ox 02/11/20 11:41 36.7 C 84 18 129/81 94 02/11/20 10:25 84 18 100 02/11/20 07:39 36.5 C 75 20 120/83 90 02/11/20 07:37 80 02/11/20 07:18 80 18 92 02/11/20 04:02 78 20 100 Laboratory Results 02/11/20 05:37 02/11/20 05:37 Diagnostic Findings No new imaging PG Care Time/CCT Total # of Minutes Spent Total Time Spent with Patient: Total time spent is greater than 50% in coordination of care (as documented) at patient's floor/unit and/or counseling patient: Coding Level of Care Code 65729 Subseq Hosp Care Lvl 2 Diagnoses Acute respiratory failure with hypoxia J96.[address] scan of lung R91.8
[2020-02-11] MEDS: ENOXAPARIN INJ 40 MG/0.4 ML SYR SQ SCH (16:03)
[2020-02-11] MEDS: REMDESIVIR 100mg: Days 2-5 IV SCH (16:03)
[2020-02-11] MEDS: SODIUM CHLORIDE 0.9% 10ML FLUSH IV SCH (18:44)
[2020-02-11] MEDS: lisinopril 10 MG TAB PO SCH (21:15)
[2020-02-11] MEDS: METOPROLOL SUCC 50MG EXT REL TAB PO SCH (21:16)
[2020-02-12] MEDS ORDERED: ACETAMINOPHEN 325 MG TAB PO PRN (06:54)
[2020-02-12 08:01] LABS: Hematocrit (blood only) 43.8 % (37-47); Hemoglobin 14.7 g/dL (12.0-16.0); Mean Corpuscular Hemoglobin 30.2 pg (25-34); Mean Corpuscular Hgb Conc 33.6 g/dL (32-36); Mean Corpuscular Volume 89.9 fL (80-100); Mean Platelet Volume 10.1 fL (7.4-10.4); Platelet Count 200 K/uL (130-400); RDW Coefficient of Variation 13.2 % (11.5-14.5); RDW Standard Deviation 43.4 fL (36.4-46.3); Red Blood Count 4.87 M/uL (4.2-5.4); White Blood Count 7.54 K/uL (4.8-10.8)
[2020-02-12] MEDS: guaiFENesin 600 MG TABCR PO SCH ×2 (08:05→19:09)
[2020-02-12] MEDS: CHOLECALCIFEROL 1,000 UNITS 25 MCG TAB PO SCH (08:05)
[2020-02-12] MEDS: THIAMINE HCL 100 MG TAB PO SCH (08:05)
[2020-02-12] MEDS: MULTIVITAMIN TAB PO SCH (08:05)
[2020-02-12] MEDS: FOLIC ACID 1 MG TAB PO SCH (08:06)
[2020-02-12 08:32] LABS: Albumin Level 3.1 gm/dl (3.4-5.0); BUN Creatinine Ratio 30.7 (10-20); Calcium 9.4 mg/dl (8.5-10.1); Creatinine Clr Calc Pharmacy 84.3 ml/min; Est GFR (African American) 102.9; Est GFR (Non-African American) 88.8; Potassium 3.8 mmol/L (3.5-5.1)
[2020-02-12 08:35] LABS: Albumin Globulin Ratio 0.7 (0.9-2); Bilirubin,Total 0.8 mg/dl (0.2-1); Globulin 4.3 gm/dl (2.5-4.0); Phosphorus 3.3 mg/dl (2.5-4.9); Total Protein 7.4 gm/dl (6.4-8.2)
[2020-02-12] MEDS: dexAMETHasone 6 MG in SYRINGE 0 ML IV SCH (08:57)
[2020-02-12] MEDS: ZINC SULFATE 220 MG CAPSULE PO SCH (08:58)
[2020-02-12] MEDS: DOXYCYCLINE HYCLATE 100 MG CAP PO SCH ×2 (08:59→20:53)
[2020-02-12] MEDS: INSULIN ASPART 100 UNITS/ML 3 ML PEN SC SCH ×4 (09:02→22:30)
[2020-02-12] MEDS: PANTOprazole 40 MG TAB PO SCH (09:48)
[2020-02-12] MEDS: cefTRIAXone SODIUM 1,000 MG in DEXTROSE 5% 50 ML IV SCH (11:55)
[2020-02-12] MEDS: REMDESIVIR 100mg: Days 2-5 IV SCH (15:34)
[2020-02-12] MEDS: ENOXAPARIN INJ 40 MG/0.4 ML SYR SQ SCH (15:35)
--- NOTE | 2020-02-12 17:26 | Hospitalist Progress Note ---
Date of Service February 12, 2020 Assessment & Plan (1) Pneumonia due to 2019 novel coronavirus: Acute respiratory failure with hypoxia from Multifocal pneumonia possibly secondary to COVID-19 -as per 02/08/2020 History and Physical "Patient is a 65-year-old female with history of hypertension, prediabetes, GERD, S/P Right breast lumpectomy and other medical problems presents with history of worsening shortness of breath, generalized weakness associated with severe tiredness since 7 days duration. Patient was tested positive for Covid on September 30, 2019. Patient also states that her was tested positive as well. She admits to returning back from [place] about 10 days ago" -patient also reported that she had OVID screen tested positive on 01/31/20, done at [facility]. On the 02/08/2020 admission COVID-19 test at [facility] emergency room, patient tested negative but pulmonary consult assessed that the test in the ED was a false negative -admission CTA "CTA: No evidence for pulmonary embolus. Multifocal bilateral groundglass and consolidative airspace opacities consistent with a pneumonia. This likely represents a viral pneumonia. A superimposed bacterial pneumonia cannot be excluded." -patient also requiring high flow nasal cannula oxygen, continue -on admission, patient was started on remdesivir, Dexamethasone (plan for 5 days of remdesavir and up to 10 days of Dexamethasone) -patient was given convalescent plasma on 02/08/2020 night time, and on 02/09/2020 -continue current remdesivir, Dexamethasone -continue incentive spirometry, guaifenesin, and current antibiotics of ceftriaxone and doxycycline, titrate the supplementary oxygen based on oxygen saturation Elevated D-dimer on admission -likely from underlying infection and inflammation -CTA showed no PE -Venous Dopplers negative for DVT (2) Diarrhea: -resolved Hypokalemia Hyponatremia -likely secondary to GI loses -Resolved after electrolyte replacements on this hospital tsay Hypertension -Continue lisinopril, metoprolol GERD -Continue PPI Prediabetes -HbA1c 6.3% -sliding scale insulin while on IV steroids when in the hospital DVT Px:Lovenox SQ CODE STATUS: Full code Admission and Anticipated Discharge Date Admission Date: February 08, 2020 Subjective Patient continues to be on high flow nasal cannula but she denies any worse sensation of dyspnea. Patient denies any other symptoms. No acute pain. No dizziness. No nausea. No vomiting. No abdominal pain. Review of Systems Review of Systems: All systems reviewed & are unremarkable except as noted in Subjective Physical Exam Constitutional: comfortable Eyes: EOM intact bilaterally ENMT: external ear and nose normal, oropharynx normal Neck: normal visual inspection Respiratory: normal respiratory effort (on high flow nasal cannula) Auscultation: + crackles Cardiovascular: Rate/Rhythm: regular rate Gastrointestinal (Abdomen): normal bowel sounds, soft, nontender, no hepatosplenomegaly Musculoskeletal: Head/Neck/Chest: normocephalic and head atraumatic Neurologic: PERRL, EOMI, accommodation nl, no face palsy, no dysarthria Psychiatric: A+Ox3, euthymic affect Results & Data Results & Data ([facility]) Vital Signs (Past 12 Hours) Vital Signs Temp Pulse Pulse Resp BP Pulse Ox 02/12/20 15:45 88 16 95 02/12/20 15:42 36.7 C 88 20 139/99 98 02/12/20 15:07 95 H 02/12/20 11:25 79 20 94 02/12/20 11:18 36.7 C 76 22 145/86 H 96 02/12/20 09:26 36.5 C 68 20 130/89 94 02/12/20 09:15 91 H 02/12/20 08:32 77 20 94
[2020-02-12] MEDS: SODIUM CHLORIDE 0.9% 10ML FLUSH IV SCH (17:33)
[2020-02-12] MEDS: lisinopril 10 MG TAB PO SCH (19:10)
[2020-02-12] MEDS: METOPROLOL SUCC 50MG EXT REL TAB PO SCH (19:10)
[2020-02-13] MEDS: dexAMETHasone 6 MG in SYRINGE 0 ML IV SCH (07:42)
[2020-02-13] MEDS: THIAMINE HCL 100 MG TAB PO SCH (07:42)
[2020-02-13] MEDS: DOXYCYCLINE HYCLATE 100 MG CAP PO SCH ×2 (07:42→20:37)
[2020-02-13] MEDS: guaiFENesin 600 MG TABCR PO SCH ×2 (07:43→20:36)
[2020-02-13] MEDS: PANTOprazole 40 MG TAB PO SCH (07:43)
[2020-02-13] MEDS: CHOLECALCIFEROL 1,000 UNITS 25 MCG TAB PO SCH (07:43)
[2020-02-13] MEDS: FOLIC ACID 1 MG TAB PO SCH (07:43)
[2020-02-13] MEDS: MULTIVITAMIN TAB PO SCH (07:43)
[2020-02-13] MEDS: ZINC SULFATE 220 MG CAPSULE PO SCH (07:46)
[2020-02-13] MEDS: INSULIN ASPART 100 UNITS/ML 3 ML PEN SC SCH ×4 (09:24→21:58)
--- NOTE | 2020-02-13 11:07 | Hospitalist Progress Note ---
Date of Service February 13, 2020 Assessment & Plan (1) Pneumonia due to 2019 novel coronavirus: Acute respiratory failure with hypoxia from Multifocal pneumonia possibly secondary to COVID-19 -as per 02/08/2020 History and Physical "Patient is a 65-year-old female with history of hypertension, prediabetes, GERD, S/P Right breast lumpectomy and other medical problems presents with history of worsening shortness of breath, generalized weakness associated with severe tiredness since 7 days duration. Patient was tested positive for Covid on September 30, 2019. Patient also states that her was tested positive as well. She admits to returning back from [place] about 10 days ago" -patient also reported that she had COVID screen tested positive on 01/31/20, done at [facility]. On the 02/08/2020 admission COVID-19 test at [facility] emergency room, patient tested negative but pulmonary consult assessed that the test in the ED was a false negative -admission CTA "No evidence for pulmonary embolus. Multifocal bilateral groundglass and consolidative airspace opacities consistent with a pneumonia. This likely represents a viral pneumonia. A superimposed bacterial pneumonia cannot be excluded." -patient also requiring high flow nasal cannula oxygen, continue -on admission, patient was started on remdesivir which was completed on 02/12/2020, and Dexamethasone (plan for up to 10 days of Dexamethasone), continue current Dexamethasone -patient was given convalescent plasma on 02/08/2020 night time, and on 02/09/2020 -continue incentive spirometry, guaifenesin, and current antibiotics of ceftriaxone and doxycycline, titrate the supplementary oxygen based on oxygen saturation 02/13/2020 Exam: Patient reports some upper respiratory congestion. However, she denies any subjective declines in her breathing. She had a cough on exam. She continues to be on high flow nasal cannula. Discussed with patient that the goal is to get here down to lower flow regular nasal cannula oxygen use before considering any role in hospital discharge. Patient denies pain anywhere of the body, or problems with eating, or other symptoms on review systems Elevated D-dimer on admission -likely from underlying infection and inflammation -CTA showed no PE -Venous Dopplers negative for DVT (2) Diarrhea: -resolved Hypokalemia Hyponatremia -likely secondary to GI loses -Resolved after electrolyte replacements on this hospital stay Hypertension -Continue lisinopril, metoprolol GERD -Continue PPI Prediabetes -HbA1c 6.3% -sliding scale insulin while on IV steroids when in the hospital DVT Px:Lovenox SQ CODE STATUS: Full code Admission and Anticipated Discharge Date Admission Date: February 08, 2020 Subjective Patient reports some upper respiratory congestion. However, she denies any subjective declines in her breathing. She had a cough on exam. She continues to be on high flow nasal cannula. Discussed with patient that the goal is to get here down to lower flow regular nasal cannula oxygen use before considering any role in hospital discharge. Patient denies pain anywhere of the body, or problems with eating, or other symptoms on review systems Review of Systems Review of Systems: All systems reviewed & are unremarkable except as noted in Subjective Physical Exam Constitutional: comfortable Eyes: EOM intact bilaterally ENMT: external ear and nose normal, oropharynx normal Neck: normal visual inspection Respiratory: normal respiratory effort (on high flow nasal cannula) Cardiovascular: Rate/Rhythm: regular rate Gastrointestinal (Abdomen): normal bowel sounds, soft, nontender, no hepatosplenomegaly Musculoskeletal: Head/Neck/Chest: normocephalic and head atraumatic Neurologic: PERRL, EOMI, accommodation nl, no face palsy, no dysarthria Psychiatric: A+Ox3, euthymic affect Results & Data Results & Data ([facility]) Vital Signs (Past 12 Hours) Vital Signs Temp Pulse Resp BP Pulse Ox 02/13/20 08:35 81 18 93 02/13/20 07:57 37.4 C 82 18 137/82 92 02/13/20 03:53 37.2 C 94 H 18 163/90 H 91 02/13/20 03:37 97 H 20 92 02/12/20 23:43 89 18 97 02/12/20 23:22 36.9 C 84 18 141/81 H 94
[2020-02-13] MEDS: cefTRIAXone SODIUM 1,000 MG in DEXTROSE 5% 50 ML IV SCH (11:34)
[2020-02-13] MEDS: ENOXAPARIN INJ 40 MG/0.4 ML SYR SQ SCH (17:40)
[2020-02-13] MEDS: METOPROLOL SUCC 50MG EXT REL TAB PO SCH (20:36)
[2020-02-13] MEDS: lisinopril 10 MG TAB PO SCH (20:36)
[2020-02-14] MEDS: ZINC SULFATE 220 MG CAPSULE PO SCH (08:21)
[2020-02-14] MEDS: dexAMETHasone 6 MG in SYRINGE 0 ML IV SCH (08:21)
[2020-02-14] MEDS: CHOLECALCIFEROL 1,000 UNITS 25 MCG TAB PO SCH (08:22)
[2020-02-14] MEDS: PANTOprazole 40 MG TAB PO SCH (08:22)
[2020-02-14] MEDS: DOXYCYCLINE HYCLATE 100 MG CAP PO SCH ×2 (08:22→20:51)
[2020-02-14] MEDS: FOLIC ACID 1 MG TAB PO SCH (08:22)
[2020-02-14] MEDS: THIAMINE HCL 100 MG TAB PO SCH (08:22)
[2020-02-14] MEDS: MULTIVITAMIN TAB PO SCH (08:22)
[2020-02-14] MEDS: guaiFENesin 600 MG TABCR PO SCH ×2 (08:22→20:51)
[2020-02-14 08:50] LABS: Basophils # (auto) 0.01 K/uL (0-0.2); Basophils % (auto) 0.1 %; Eosinophils # (auto) 0.08 K/uL (0-0.5); Eosinophils % (auto) 0.9 %; Hematocrit (blood only) 38.2 % (37-47); Hemoglobin 12.9 g/dL (12.0-16.0); Immature Granulocytes # (auto) 0.04 K/uL (0.00-0.02); Immature Granulocytes % (auto) 0.4 %; Lymphocytes # (auto) 0.78 K/uL (1.2-3.4); Lymphocytes % (auto) 8.6 %; Mean Corpuscular Hemoglobin 29.8 pg (25-34); Mean Corpuscular Hgb Conc 33.8 g/dL (32-36); Mean Corpuscular Volume 88.2 fL (80-100); Mean Platelet Volume 10.5 fL (7.4-10.4); Monocytes # (auto) 0.41 K/uL (0.11-0.59); Monocytes % (auto) 4.5 %; Neutrophils # (auto) 7.72 K/uL (1.4-6.5); Neutrophils % (auto) 85.5 %; Platelet Count 133 K/uL (130-400); RDW Coefficient of Variation 13.2 % (11.5-14.5); RDW Standard Deviation 42.7 fL (36.4-46.3); Red Blood Count 4.33 M/uL (4.2-5.4); White Blood Count 9.04 K/uL (4.8-10.8)
[2020-02-14 09:13] LABS: Albumin Level 2.5 gm/dl (3.4-5.0); BUN Creatinine Ratio 30.2 (10-20); Calcium 8.7 mg/dl (8.5-10.1); Creatinine Clr Calc Pharmacy 92.1 ml/min; Est GFR (African American) 107.2; Est GFR (Non-African American) 92.5; Potassium 3.6 mmol/L (3.5-5.1)
[2020-02-14 09:18] LABS: Albumin Globulin Ratio 0.6 (0.9-2); Bilirubin,Total 0.7 mg/dl (0.2-1); Globulin 3.9 gm/dl (2.5-4.0); Total Protein 6.4 gm/dl (6.4-8.2)
[2020-02-14] MEDS: INSULIN ASPART 100 UNITS/ML 3 ML PEN SC SCH ×4 (09:42→20:50)
[2020-02-14] MEDS: cefTRIAXone SODIUM 1,000 MG in DEXTROSE 5% 50 ML IV SCH (12:32)
--- NOTE | 2020-02-14 13:07 | Hospitalist Progress Note ---
Date of Service February 14, 2020 Assessment & Plan (1) Pneumonia due to 2019 novel coronavirus: Acute respiratory failure with hypoxia from Multifocal pneumonia possibly secondary to COVID-19 -as per 02/08/2020 History and Physical "Patient is a 65-year-old female with history of hypertension, prediabetes, GERD, S/P Right breast lumpectomy and other medical problems presents with history of worsening shortness of breath, generalized weakness associated with severe tiredness since 7 days duration. Patient was tested positive for Covid on September 30, 2019. Patient also states that her was tested positive as well. She admits to returning back from [place] about 10 days ago" -patient also reported that she had COVID screen tested positive on 01/31/20, done at [facility]. On the 02/08/2020 admission COVID-19 test at [facility] emergency room, patient tested negative but pulmonary consult assessed that the test in the ED was a false negative -admission CTA "No evidence for pulmonary embolus. Multifocal bilateral groundglass and consolidative airspace opacities consistent with a pneumonia. This likely represents a viral pneumonia. A superimposed bacterial pneumonia cannot be excluded." -patient also requiring high flow nasal cannula oxygen, continue -on admission, patient was started on remdesivir which was completed on 02/12/2020, and Dexamethasone (plan for up to 10 days of Dexamethasone), continue current Dexamethasone -patient was given convalescent plasma on 02/08/2020 night time, and on 02/09/2020 -continue incentive spirometry, guaifenesin, and current antibiotics of ceftriaxone and doxycycline, titrate the supplementary oxygen based on oxygen saturation 02/13/2020 Exam: Patient reports some upper respiratory congestion. However, she denies any subjective declines in her breathing. She had a cough on exam. She continues to be on high flow nasal cannula. Discussed with patient that the goal is to get here down to lower flow regular nasal cannula oxygen use before considering any role in hospital discharge. Patient denies pain anywhere of the body, or problems with eating, or other symptoms on review systems 02/14/2020: Patient continues to be on high flow nasal cannula. Continues to be on IV dexamethasone daily. Patient reports less cough. Patient denies other symptoms on review of systems. Elevated D-dimer on admission -likely from underlying infection and inflammation -CTA showed no PE -Venous Dopplers negative for DVT (2) Diarrhea: -resolved Hypokalemia Hyponatremia -likely secondary to GI loses -Resolved after electrolyte replacements on this hospital stay Hypertension -Continue lisinopril, metoprolol GERD -Continue PPI Prediabetes -HbA1c 6.3% -sliding scale insulin while on IV steroids when in the hospital DVT Px:Alejandranox SQ CODE STATUS: Full code Admission and Anticipated Discharge Date Admission Date: February 08, 2020 Subjective 02/14/2020: Patient continues to be on high flow nasal cannula. Continues to be on IV dexamethasone daily. Patient reports less cough. Patient denies other symptoms on review of systems. no vomiting. she has been able to make bowel movements and urinate. patient denies any dizziness Review of Systems Review of Systems: All systems reviewed & are unremarkable except as noted in Subjective Physical Exam Constitutional: comfortable Eyes: EOM intact bilaterally ENMT: external ear and nose normal, oropharynx normal Neck: normal visual inspection Respiratory: normal respiratory effort (on high flow nasal cannula) Cardiovascular: Rate/Rhythm: regular rate Gastrointestinal (Abdomen): normal bowel sounds, soft, nontender, no hepatosplenomegaly Musculoskeletal: Head/Neck/Chest: normocephalic and head atraumatic Neurologic: PERRL, EOMI, accommodation nl, no face palsy, no dysarthria Psychiatric: A+Ox3, euthymic affect Results & Data Results & Data ([facility]) Vital Signs (Past 12 Hours) Vital Signs Temp Pulse Resp BP Pulse Ox 02/14/20 11:53 88 20 94 02/14/20 11:07 36.9 C 91 H 18 142/79 H 93 02/14/20 08:08 82 20 88 L 02/14/20 07:47 36.7 C 92 H 20 153/90 H 90 02/14/20 03:58 88 20 91 02/14/20 03:36 36.8 C 86 21 141/79 H 91
[2020-02-14] MEDS: ENOXAPARIN INJ 40 MG/0.4 ML SYR SQ SCH (16:55)
[2020-02-14] MEDS: METOPROLOL SUCC 50MG EXT REL TAB PO SCH (20:50)
[2020-02-14] MEDS: lisinopril 10 MG TAB PO SCH (20:50)
[2020-02-15] MEDS: ZINC SULFATE 220 MG CAPSULE PO SCH (07:42)
[2020-02-15] MEDS: FOLIC ACID 1 MG TAB PO SCH (07:42)
[2020-02-15] MEDS: MULTIVITAMIN TAB PO SCH (07:43)
[2020-02-15] MEDS: guaiFENesin 600 MG TABCR PO SCH ×2 (07:43→22:14)
[2020-02-15] MEDS: dexAMETHasone 6 MG in SYRINGE 0 ML IV SCH (07:43)
[2020-02-15] MEDS: CHOLECALCIFEROL 1,000 UNITS 25 MCG TAB PO SCH (07:44)
[2020-02-15] MEDS: THIAMINE HCL 100 MG TAB PO SCH (07:44)
[2020-02-15] MEDS: PANTOprazole 40 MG TAB PO SCH (07:44)
[2020-02-15] MEDS: DOXYCYCLINE HYCLATE 100 MG CAP PO SCH (09:06)
[2020-02-15] MEDS: INSULIN ASPART 100 UNITS/ML 3 ML PEN SC SCH ×4 (09:41→21:30)
--- NOTE | 2020-02-15 12:36 | Hospitalist Progress Note ---
Date of Service February 15, 2020 Assessment & Plan (1) Pneumonia due to 2019 novel coronavirus: Acute respiratory failure with hypoxia from Multifocal pneumonia possibly secondary to COVID-19 -as per 02/08/2020 History and Physical "Patient is a 65-year-old female with history of hypertension, prediabetes, GERD, S/P Right breast lumpectomy and other medical problems presents with history of worsening shortness of breath, generalized weakness associated with severe tiredness since 7 days duration. Patient was tested positive for Covid on September 30, 2019. Patient also states that her was tested positive as well. She admits to returning back from [place] about 10 days ago" -patient also reported that she had COVID screen tested positive on 01/31/20, done at [facility]. On the 02/08/2020 admission COVID-19 test at [facility] emergency room, patient tested negative but pulmonary consult assessed that the test in the ED was a false negative -admission CTA "No evidence for pulmonary embolus. Multifocal bilateral groundglass and consolidative airspace opacities consistent with a pneumonia. This likely represents a viral pneumonia. A superimposed bacterial pneumonia cannot be excluded." -patient also requiring high flow nasal cannula oxygen, continue -on admission, patient was started on remdesivir which was completed on 02/12/2020, and Dexamethasone (plan for up to 10 days of Dexamethasone), continue current Dexamethasone -patient was given convalescent plasma on 02/08/2020 night time, and on 02/09/2020 -continue incentive spirometry, guaifenesin, and current antibiotics of ceftriaxone and doxycycline, titrate the supplementary oxygen based on oxygen saturation 02/13/2020 Exam: Patient reports some upper respiratory congestion. However, she denies any subjective declines in her breathing. She had a cough on exam. She continues to be on high flow nasal cannula. Discussed with patient that the goal is to get here down to lower flow regular nasal cannula oxygen use before considering any role in hospital discharge. Patient denies pain anywhere of the body, or problems with eating, or other symptoms on review systems 02/14/2020: Patient continues to be on high flow nasal cannula. Continues to be on IV dexamethasone daily. Patient reports less cough. Patient denies other symptoms on review of systems. 02/15/2020: Patient currently hospital day 7 and still no major transition from high flow nasal cannula. continues to be on IV dexamethasone. Continues to have diffuse crackles on lung exam. Fortunately, patient does not have other acute symptoms on review of systems. we discussed that in situation of COVID that lung infiltrates can persist for long period of time. last dose of daily dexamethasone planned for 02/17/2020 and plan for repeat CXR if symptoms persists Elevated D-dimer on admission -likely from underlying infection and inflammation -CTA showed no PE -Venous Dopplers negative for DVT (2) Diarrhea: -resolved Hypokalemia Hyponatremia -likely secondary to GI loses -Resolved after electrolyte replacements on this hospital stay Hypertension -Continue lisinopril, metoprolol GERD -Continue PPI Prediabetes -HbA1c 6.3% -sliding scale insulin while on IV steroids when in the hospital DVT Px:Lovenox SQ CODE STATUS: Full code Admission and Anticipated Discharge Date Admission Date: February 08, 2020 Subjective Patient currently hospital day 7 and still no major transition from high flow nasal cannula. continues to be on IV dexamethasone. Continues to have diffuse crackles on lung exam. Fortunately, patient does not have other acute symptoms on review of systems. no chest pain. no dizziness. no headache. no problems with urination or bowel movements. no abdomen pain. no Gi upsets we discussed that in situation of COVID that lung infiltrates can persist for long period of time. last dose of daily dexamethasone planned for 02/17/2020 and plan for repeat CXR if symptoms persists Review of Systems Review of Systems: All systems reviewed & are unremarkable except as noted in Subjective Physical Exam Constitutional: comfortable Eyes: EOM intact bilaterally ENMT: external ear and nose normal, oropharynx normal Neck: normal visual inspection Respiratory: normal respiratory effort (on high flow nasal cannula) Auscultation: + crackles Cardiovascular: Rate/Rhythm: regular rate Gastrointestinal (Abdomen): normal bowel sounds, soft, nontender, no hepatosplenomegaly Musculoskeletal: Head/Neck/Chest: normocephalic and head atraumatic Neurologic: PERRL, EOMI, accommodation nl, no face palsy, no dysarthria Psychiatric: A+Ox3, euthymic affect Results & Data Results & Data ([facility]) Vital Signs (Past 12 Hours) Vital Signs Temp Pulse Resp BP Pulse Ox 02/15/20 11:02 99 H 20 90 02/15/20 07:52 88 18 143/92 H 91 02/15/20 07:45 92 H 18 91 02/15/20 04:04 36.9 C 88 22 132/82 89 L 02/15/20 04:01 88 20 89 L
[2020-02-15] MEDS: cefTRIAXone SODIUM 1,000 MG in DEXTROSE 5% 50 ML IV SCH (12:53)
[2020-02-15] MEDS: ENOXAPARIN INJ 40 MG/0.4 ML SYR SQ SCH (16:53)
[2020-02-15] MEDS: lisinopril 10 MG TAB PO SCH (22:15)
[2020-02-15] MEDS: METOPROLOL SUCC 50MG EXT REL TAB PO SCH (22:15)
[2020-02-15] MEDS ORDERED: dilTIAZem HCl 5 MG/ML 5 ML VIAL IV STA (23:30)
[2020-02-16] MEDS ORDERED: dilTIAZem HCl 5 MG/ML 5 ML VIAL IV STA (02:42)
[2020-02-16] MEDS ORDERED: STAT IV Infusion **Titration per Protocol STA (02:42)
[2020-02-16] MEDS ORDERED: dilTIAZem HCL 125 MG in DEXTROSE 5% 100 ML IV SCH (03:00)
[2020-02-16 07:27] LABS: Eosinophils # (auto) 0.08 K/uL (0-0.5); Eosinophils % (auto) 0.8 %; Hematocrit (blood only) 41.4 % (37-47); Hemoglobin 14.3 g/dL (12.0-16.0); Immature Granulocytes # (auto) 0.05 K/uL (0.00-0.02); Immature Granulocytes % (auto) 0.5 %; Lymphocytes # (auto) 0.76 K/uL (1.2-3.4); Lymphocytes % (auto) 7.2 %; Mean Corpuscular Hemoglobin 30.6 pg (25-34); Mean Corpuscular Hgb Conc 34.5 g/dL (32-36); Mean Corpuscular Volume 88.5 fL (80-100); Mean Platelet Volume 10.6 fL (7.4-10.4); Monocytes # (auto) 0.38 K/uL (0.11-0.59); Monocytes % (auto) 3.6 %; Neutrophils # (auto) 9.32 K/uL (1.4-6.5); Neutrophils % (auto) 87.9 %; Platelet Count 146 K/uL (130-400); RDW Coefficient of Variation 13.3 % (11.5-14.5); RDW Standard Deviation 42.5 fL (36.4-46.3); Red Blood Count 4.68 M/uL (4.2-5.4); White Blood Count 10.59 K/uL (4.8-10.8)
[2020-02-16 07:53] LABS: BUN Creatinine Ratio 24.3 (10-20); Calcium 8.7 mg/dl (8.5-10.1); Creatinine Clr Calc Pharmacy 93.5 ml/min; Est GFR (African American) 107.8; Magnesium 2.4 mg/dl (1.8-2.4); Potassium 3.6 mmol/L (3.5-5.1)
[2020-02-16] MEDS: ZINC SULFATE 220 MG CAPSULE PO SCH (08:18)
[2020-02-16] MEDS: PANTOprazole 40 MG TAB PO SCH (08:18)
[2020-02-16] MEDS: CHOLECALCIFEROL 1,000 UNITS 25 MCG TAB PO SCH (08:18)
[2020-02-16] MEDS: THIAMINE HCL 100 MG TAB PO SCH (08:18)
[2020-02-16] MEDS: MULTIVITAMIN TAB PO SCH (08:18)
[2020-02-16] MEDS: dexAMETHasone 6 MG in SYRINGE 0 ML IV SCH (08:18)
[2020-02-16] MEDS: FOLIC ACID 1 MG TAB PO SCH (08:18)
[2020-02-16] MEDS: guaiFENesin 600 MG TABCR PO SCH ×2 (08:19→20:21)
--- NOTE | 2020-02-16 08:25 | Electrocardiogram Report ---
Test Reason : Blood Pressure : / mmHG Vent. Rate : 125 BPM Atrial Rate : 150 BPM P-R Int : 000 ms QRS Dur : 090 ms QT Int : 340 ms P-R-T Axes : 000 -46 071 degrees QTc Int : 490 ms Atrial fibrillation with rapid ventricular response Left anterior fascicular block Abnormal ECG When compared with ECG of 08-FEB-2020 12:51, Atrial fibrillation has replaced Sinus rhythm Vent. rate has increased BY 42 BPM Criteria for Inferior infarct are no longer Present Confirmed by Guillaume Rodriguez ([id number] on 02/16/2020 8:25:14 AM Referred By: REFERRED SELF Confirmed By:Guillaume Rodriguez
--- NOTE | 2020-02-16 08:26 | XRay Report ---
SINGLE VIEW CHEST CLINICAL HISTORY: Hypoxia. FINDINGS: An AP, portable, upright chest radiograph is compared to study dated 02/11/2020. Correlatio n is made with chest CT dated 02/08/2020. The cardiomediastinal silhouette is unremarkable. Multifoca l bilateral airspace consolidation has increased from 02/11/2020. No large pleural effusion or pneumo thorax is seen. The skeletal structures are osteopenic. The bony thorax is grossly intact. IMPRESSION: There is increasing multifocal bilateral airspace consolidation as compared to 02/11/2020 . ACT 112: Negative or not required by law. Electronically signed by: Asim Price M.D. 02/16/2020 8:24 AM
[2020-02-16] MEDS: INSULIN ASPART 100 UNITS/ML 3 ML PEN SC SCH ×4 (08:45→20:20)
[2020-02-16 09:47] LABS: INR 1.2 (0.9-1.1); Partial Thromboplastin Ratio 0.9; Partial Thromboplastin Time 24.7 Seconds (21.0-31.0); Prothrombin Time 12.1 Seconds (9.0-12.0)
[2020-02-16] MEDS: HEPARIN SODIUM/DEXTROSE 25,000 UNITS/500 ML BAG IV SCH (09:54)
[2020-02-16] MEDS: Heparin IV Standard *NO* Bolus IV SCH ×2 (10:00)
--- NOTE | 2020-02-16 10:51 | Pulmonology Progress Note ---
Date of Service February 16, 2020 Assessment & Plan (1) Acute respiratory failure with hypoxia: Impression: 65-year-old female with diffuse pulmonary infiltrates in hypoxemic respiratory failure. She had a positive Covid test in the outpatient setting January 30. She has been treated with dexamethasone and remdesivir but unfortunately appears to have radiographic progression and persistent hypoxemic respiratory failure. Her case is now complicated by atrial fibrillation with rapid ventricular response. Recommendations: 1. COVID-19 pneumonia: Continue protocol with dexamethasone and remdesivir. Encouraged self proning, see below. Patient is currently treated for potential secondary infection with Rocephin and doxycycline, currently day #8. This should have been adequate therapy to treat an underlying pneumonia and antibiotics will be continued at this point time. 2. Acute hypoxemic respiratory failure: Secondary to pneumonia atelectasis and pulmonary infiltrates. The patient had profound improvement with prone positioning and I recommended that she try and remain prone is much as possible. We will try and target 18 to 20 hours a day of prone positioning if the patient can tolerated. If the patient fails pronating, could consider initiation of BiPAP. 3. DVT prophylaxis recommended and is in place with Lovenox. 4. Recommend Burns catheter placement to assist with management of intake/output and to minimize hypoxemia associated with the patient getting up and using the restroom. Is possible the patient could deteriorate clinically and require intubation mechanical ventilation. I discussed this with her at the bedside. She understands the gravity of her current situation but would like to see how she does with proning and a trial of noninvasive positive pressure ventilation if needed. I think it is reasonable. We will continue to follow her closely. I did discuss with the nursing human resources department supervisor moving the patient to a bed which would potentially be compatible with change to ICU status. She will remain on the Covid unit. I will follow closely at this point in time. Will defer to the hospitalist and nursing staffing is to whether or not the patient needs to be transitioned to ICU status or can remain on telemetry status. Would not do a nything different from a therapeutic standpoint at this point time but if nursing staffing ratios are better with ICU status it may be reasonable to transfer her Total of 49 minutes critical care time was spent in evaluation and managing this patient with respiratory failure. The patient is at risk of clinical decline and potential . (2) Abnormal CT scan of lung: Admission and Anticipated Discharge Date Admission Date: February 08, 2020 Subjective Patient seen and examined. EMR reviewed. The patient states that she had a difficult night. She apparently went into atrial fibrillation with rapid ventricular response and was started on diltiazem. Her oxygen saturations decreased with this arrhythmia. When I assessed her this morning she was on high flow 100% 40 L/min with oxygen saturations in the low 80% range. She was immediately proned by myself. This resulted in a 15 point improvement in her oxygen saturation. Her oxygen saturations currently are in the mid 90s. Physical Exam Constitutional: WD/WN, vitals as above Neck: trachea midline, no thyromegaly Respiratory: + respiratory distress and + labored breathing Cardiovascular: RRR, no murmur, no edema Gastrointestinal (Abdomen): normal bowel sounds, soft, nontender, no hepatosplenomegaly Musculoskeletal: Extremities: extremities normal to inspection Skin: no rashes, warm and dry Lymphatic: no cervical lymphadenopathy Results & Data Results & Data ([facility] [place]) Vital Signs (Past 12 Hours) Vital Signs Temp Pulse Pulse Resp BP Pulse Ox 02/16/20 10:34 78 02/16/20 07:38 96 H 21 02/16/20 07:08 36.4 C L 100 H 24 140/85 86 L 02/16/20 07:00 113 H 02/16/20 06:07 120 H 128/72 02/16/20 04:19 93 H 123/89 88 L 02/16/20 03:22 92 H 22 90 02/16/20 02:42 81 132/92 92 02/16/20 01:00 127 H 02/15/20 23:07 36.5 C 80 23 167/99 H 90 02/15/20 23:04 91 H 24 90 Laboratory Results 02/16/20 07:11 02/16/20 07:11 Diagnostic Findings Chest x-ray from today was independently reviewed. It was compared to prior chest x-ray from 02/11/2020. There has been progression of the bilateral lower lobe interstitial infiltrates. No significant pleural effusion PG Care Time/CCT Total # of Minutes Spent Total Time Spent with Patient: Total time spent is greater than 50% in coordination of care (as documented) at patient's floor/unit and/or counseling patient: Coding Level of Care Code None Diagnoses Acute respiratory failure with hypoxia J96.[address] scan of lung R91.8 Time Spent (min) 49 Comment 49 minutes critical care time, [id number]
--- NOTE | 2020-02-16 11:05 | Cardiology Consultation ---
Date of Consultation February 16, 2020 Assessment & Plan (1) Paroxysmal atrial fibrillation with rapid ventricular response: Patient is a 65-year-old female without prior history of arrhythmias but underlying issues of hypertension now hospitalized with acute Covid pneumonia with hypoxia requiring high flow oxygen supplement, increasing infiltrates on chest x-ray. Patient last evening lapsed into atrial fibrillation with elevated ventricular response with spontaneous conversion to sinus rhythm this morning while on IV diltiazem. Patient appropriately begun on IV anticoagulation with heparin Current event being driven by hypoxia, mild hypokalemia, hypertension and demands of acute illness. Recommendations: Continue anticoagulation with IV heparin for stroke risk reduction We will increase metoprolol succinate to 75 mg/day with room to increase further. Discontinue diltiazem at this time Increase lisinopril to 40 mg/pm for further hypertension control Supplement potassium to greater than 4 Echocardiogram assess structural heart given atrial arrhythmias, persistent hypoxia, slow clinical response to appropriate Covid therapies (2) HTN (hypertension), benign: (3) Pneumonia due to 2019 novel coronavirus: (4) Hypoxia: History of Present Illness Reason for Consultation: Paroxysmal atrial fibrillation Requesting Physician: Dr. Ingram Attending Physician: Alfredo Ingram MD History of Present Illness Patient is a complex 65-year-old female currently in Covid unit with active pneumonitis, hypoxia with high flow oxygen requirement Prehospital medical issues include hypertension and gastroesophageal reflux. Patient referred now after lapsing into atrial fibrillation with elevated ventricular response rate last evening. Patient was treated with IV diltiazem with subsequent spontaneous conversion to sinus rhythm earlier this morning. Last structural heart evaluation 2011 with normal LV systolic function, borderline mitral valve prolapse. Appreciate pulmonology input from this morning goal optimization of oxygenation Allergies Allergy/AdvReac Type Severity Reaction Status Date / Time No Known Allergies Allergy Unverified 02/08/20 13:47 Home Medications Medication Instructions Recorded Confirmed Type cholecalciferol (vitamin D3) 25 mcg PO QAM 02/08/20 02/08/20 History [Vitamin D3] [id number] [Vicks 30 ml PO QID PRN 02/08/20 02/08/20 History NyQuil Cold/Flu (doxyl)] lisinopril 30 mg PO PM 02/08/20 02/08/20 History metoprolol succinate 50 mg PO PM 02/08/20 02/08/20 History multivitamin 1 tab PO QAM 02/08/20 02/08/20 History pantoprazole 40 mg PO QAM 02/08/20 02/08/20 History zinc 50 mg PO QAM 02/08/20 02/08/20 History Patient History Medical History (Updated 02/16/20 @ 11:24 by Migel Vergara MD) HTN (hypertension), benign Pneumonia due to 2019 novel coronavirus Prediabetes Surgical History S/P lumpectomy, right breast Family History Father Tobacco abuse disorder Mother Cancer Social History Smoking Status: Never smoker Hx Alcohol Use: Yes Alcohol type: wine Hx Substance Use: No Preferred Language: Welsh 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 Telemetry reviewed Results & Data ([facility]) Vital Signs (Past 12 Hours) Vital Signs Temp Pulse Pulse Pulse Resp BP Pulse Ox 02/16/20 11:01 88 25 H 94 02/16/20 10:34 78 02/16/20 07:38 96 H 21 02/16/20 07:08 36.4 C L 100 H 24 140/85 86 L 02/16/20 07:00 113 H 02/16/20 06:07 120 H 128/72 02/16/20 04:19 93 H 123/89 88 L 02/16/20 03:22 92 H 22 90 02/16/20 02:42 81 132/92 92 02/16/20 01:00 127 H 02/15/20 23:07 36.5 C 80 23 167/99 H 90 Laboratory Results Laboratory Results - last 24 hr 02/15/20 02/15/20 02/15/20 12:18 16:52 20:31 WBC RBC Hgb Hct MCV MCH MCHC RDW Std Deviation RDW Coeff of Uma Plt Count MPV Immature Gran % (Auto) Neut % (Auto) Lymph % (Auto) [place] % (Auto) Eos % (Auto) Baso % (Auto) Neut # (Auto) Lymph # (Auto) [place] # (Auto) Eos # (Auto) Baso # (Auto) Immature Gran # (Auto) PT INR APTT PTT Ratio Sodium Potassium Chloride Carbon Dioxide Anion Gap BUN Creatinine Est Cr Clr Drug Dosing Est GFR ( Amer) Est GFR (Non-Af Amer) BUN/Creatinine Ratio Glucose POC Glucose 140 H 144 H 133 H Calcium Magnesium Troponin I 02/16/20 02/16/20 02/16/20 07:11 07:11 07:11 WBC 10.59 RBC 4.68 Hgb 14.3 Hct 41.4 MCV 88.5 MCH 30.6 MCHC 34.5 RDW Std Deviation 42.5 RDW Coeff of Uma 13.3 Plt Count 146 MPV 10.6 H Immature Gran % (Auto) 0.5 Neut % (Auto) 87.9 Lymph % (Auto) 7.2 [place] % (Auto) 3.6 Eos % (Auto) 0.8 Baso % (Auto) 0.0 Neut # (Auto) 9.32 H Lymph # (Auto) 0.76 L [place] # (Auto) 0.38 Eos # (Auto) 0.08 Baso # (Auto) 0.00 Immature Gran # (Auto) 0.05 H PT INR APTT PTT Ratio Sodium 137 Potassium 3.6 Chloride 106 Carbon Dioxide 25 Anion Gap 6.0 BUN 16 Creatinine 0.64 Est Cr Clr Drug Dosing 93.5 Est GFR ( Amer) 107.8 Est GFR (Non-Af Amer) 93.0 BUN/Creatinine Ratio 24.3 H Glucose 106 H POC Glucose Calcium 8.7 Magnesium 2.4 Troponin I < 0.015 02/16/20 02/16/20 07:15 07:45 WBC RBC Hgb Hct MCV MCH MCHC RDW Std Deviation RDW Coeff of Uma Plt Count MPV Immature Gran % (Auto) Neut % (Auto) Lymph % (Auto) [place] % (Auto) Eos % (Auto) Baso % (Auto) Neut # (Auto) Lymph # (Auto) [place] # (Auto) Eos # (Auto) Baso # (Auto) Immature Gran # (Auto) PT 12.1 H INR 1.2 H APTT 24.7 PTT Ratio 0.9 Sodium Potassium Chloride Carbon Dioxide Anion Gap BUN Creatinine Est Cr Clr Drug Dosing Est GFR ( Amer) Est GFR (Non-Af Amer) BUN/Creatinine Ratio Glucose POC Glucose 98 Calcium Magnesium Troponin I Diagnostic Findings Chest x-ray 02/16/2020: Increasing pulmonary infiltrates no overt pulmonary edema or effusion
[2020-02-16] MEDS ORDERED: POTASSIUM CHLORIDE CRTAB 20 MEQ TABCR PO ONE (11:19)
[2020-02-16] MEDS: METOPROLOL SUCC 25MG EXT REL TAB PO SCH ×2 (12:31→20:22)
--- NOTE | 2020-02-16 14:04 | Hospitalist Progress Note ---
Date of Service February 16, 2020 Assessment & Plan (1) Pneumonia due to 2019 novel coronavirus: Acute respiratory failure with hypoxia from Multifocal pneumonia possibly secondary to COVID-19 -as per 02/08/2020 History and Physical "Patient is a 65-year-old female with history of hypertension, prediabetes, GERD, S/P Right breast lumpectomy and other medical problems presents with history of worsening shortness of breath, generalized weakness associated with severe tiredness since 7 days duration. Patient was tested positive for Covid on September 30, 2019. Patient also states that her was tested positive as well. She admits to returning back from [place] about 10 days ago" -patient also reported that she had COVID screen tested positive on 01/31/20, done at [facility]. On the 02/08/2020 admission COVID-19 test at [facility] emergency room, patient tested negative but pulmonary consult assessed that the test in the ED was a false negative -admission CTA "No evidence for pulmonary embolus. Multifocal bilateral groundglass and consolidative airspace opacities consistent with a pneumonia. This likely represents a viral pneumonia. A superimposed bacterial pneumonia cannot be excluded." -patient also requiring high flow nasal cannula oxygen, continue -on admission, patient was started on remdesivir which was completed on 02/12/2020, and Dexamethasone (plan for up to 10 days of Dexamethasone), continue current Dexamethasone -patient was given convalescent plasma on 02/08/2020 night time, and on 02/09/2020 -continue incentive spirometry, guaifenesin, and current antibiotics of ceftriaxone and doxycycline, titrate the supplementary oxygen based on oxygen saturation -02/13/2020 Exam: Patient reports some upper respiratory congestion. However, she denies any subjective declines in her breathing. She had a cough on exam. Sh e continues to be on high flow nasal cannula. Discussed with patient that the goal is to get here down to lower flow regular nasal cannula oxygen use before considering any role in hospital discharge. Patient denies pain anywhere of the body, or problems with eating, or other symptoms on review systems -02/14/2020: Patient continues to be on high flow nasal cannula. Continues to be on IV dexamethasone daily. Patient reports less cough. Patient denies other symptoms on review of systems. -02/15/2020 to 02/16/2020: Patient currently hospital day 7 and still no major transition from high flow nasal cannula. continues to be on IV dexamethasone. Continues to have diffuse crackles on lung exam. around 10:40PM on 02/16/2020, patient went into atrial fibrillation with rapid ventricular response, night time hospitalist started patient on IV Cardizem. Patient went back into normal sinus rhythm and rate by 7:40 AM on 02/16/2020. She was also initiated on IV heparin. Cardiology service Dr. Vergara stopped further IV diltiazem, increased metoprolol succinate to 75 mg/day and increase lisinopril to 40 mg/pm for further hypertension control and gave additional potassium. An echocardiogram was finished at time of hospitalist exam. Patient continues to be on high flow nasal cannula. she does palpitations of chest discomforts and notes that she had a "rough night." Pulmonary physician have been notified and he recommended "target 18 to 20 hours a day of prone positioning if the patient can tolerated" and recommend Burns catheter placement to assist with management of intake/output and to minimize hypoxemia associated with the patient getting up and using the restroom. Elevated D-dimer on admission -likely from underlying infection and inflammation -CTA showed no PE -Venous Dopplers negative for DVT (2) Diarrhea: -resolved Hypokalemia Hyponatremia -likely secondary to GI loses -generally Resolved after electrolyte replacements on this hospital stay -target serum potassium of 4 as per cardiology service Hypertension -had been on lisinopril and metoprolol -currently adjusted by cardiology on 02/16/2020 GERD -Continue PPI Prediabetes -HbA1c 6.3% -sliding scale insulin while on IV steroids when in the hospital DVT Px:currently on IV heparin because of recent afib RVR CODE STATUS: Full code Admission and Anticipated Discharge Date Admission Date: February 08, 2020 Subjective -02/15/2020 to 02/16/2020: Patient currently hospital day 7 and still no major transition from high flow nasal cannula. continues to be on IV dexamethasone. Continues to have diffuse crackles on lung exam. around 10:40PM on 02/16/2020, patient went into atrial fibrillation with rapid ventricular response, night time hospitalist started patient on IV Cardizem. Patient went back into normal sinus rhythm and rate by 7:40 AM on 02/16/2020. She was also initiated on IV heparin. Cardiology service Dr. Vergara stopped further IV diltiazem, increased metoprolol succinate to 75 mg/day and increase lisinopril to 40 mg/pm for further hypertension control and gave additional potassium. An echocardiogram was finished at time of hospitalist exam. Patient continues to be on high flow nasal cannula. she does palpitations of chest discomforts and notes that she had a "rough night." Pulmonary physician have been notified and he recommended "target 18 to 20 hours a day of prone positioning if the patient can tolerated" and recommend Burns catheter placement to assist with management of intake/output and to minimize hypoxemia associated with the patient getting up and using the restroom. Review of Systems Review of Systems: All systems reviewed & are unremarkable except as noted in Subjective Physical Exam Constitutional: comfortable Eyes: EOM intact bilaterally ENMT: external ear and nose normal, oropharynx normal Neck: normal visual inspection Respiratory: normal respiratory effort (on high flow nasal cannula) Auscultation: + crackles Cardiovascular: Rate/Rhythm: regular rate Gastrointestinal (Abdomen): normal bowel sounds, soft, nontender, no hepatosplenomegaly Musculoskeletal: Head/Neck/Chest: normocephalic and head atraumatic Neurologic: PERRL, EOMI, accommodation nl, no face palsy, no dysarthria Psychiatric: A+Ox3, euthymic affect Results & Data Results & Data ([facility]) Vital Signs (Past 12 Hours) Vital Signs Temp Pulse Pulse Pulse Resp BP Pulse Ox 02/16/20 12:10 82 20 116/72 92 02/16/20 11:01 88 25 H 94 02/16/20 10:34 78 02/16/20 07:38 96 H 21 02/16/20 07:08 36.4 C L 100 H 24 140/85 86 L 02/16/20 07:00 113 H 02/16/20 06:07 120 H 128/72 02/16/20 04:19 93 H 123/89 88 L 02/16/20 03:22 92 H 22 90 02/16/20 02:42 81 132/92 92
[2020-02-16 16:20] LABS: Partial Thromboplastin Ratio 1.5; Partial Thromboplastin Time 42.9 Seconds (21.0-31.0)
[2020-02-16] MEDS: lisinopril 40 MG TAB PO SCH (20:22)
[2020-02-16 23:23] LABS: Partial Thromboplastin Time 56.2 Seconds (21.0-31.0)
[2020-02-17 04:40] LABS: Eosinophils # (auto) 0.02 K/uL (0-0.5); Eosinophils % (auto) 0.2 %; Hematocrit (blood only) 37.6 % (37-47); Hemoglobin 12.7 g/dL (12.0-16.0); Immature Granulocytes # (auto) 0.07 K/uL (0.00-0.02); Immature Granulocytes % (auto) 0.8 %; Lymphocytes # (auto) 0.59 K/uL (1.2-3.4); Lymphocytes % (auto) 6.8 %; Mean Corpuscular Hgb Conc 33.8 g/dL (32-36); Mean Corpuscular Volume 88.9 fL (80-100); Mean Platelet Volume 10.5 fL (7.4-10.4); Monocytes # (auto) 0.44 K/uL (0.11-0.59); Monocytes % (auto) 5.1 %; Neutrophils % (auto) 87.1 %; Platelet Count 127 K/uL (130-400); RDW Coefficient of Variation 13.3 % (11.5-14.5); RDW Standard Deviation 43.4 fL (36.4-46.3); Red Blood Count 4.23 M/uL (4.2-5.4); White Blood Count 8.62 K/uL (4.8-10.8)
[2020-02-17 04:59] LABS: Albumin Level 2.1 gm/dl (3.4-5.0); BUN Creatinine Ratio 25.3 (10-20); Bilirubin,Total 0.5 mg/dl (0.2-1); Calcium 8.3 mg/dl (8.5-10.1); Creatinine Clr Calc Pharmacy 75.7 ml/min; Est GFR (African American) 90.4; Magnesium 2.5 mg/dl (1.8-2.4); Potassium 4.1 mmol/L (3.5-5.1)
[2020-02-17 05:00] LABS: Albumin Globulin Ratio 0.5 (0.9-2); Globulin 4.2 gm/dl (2.5-4.0); Total Protein 6.3 gm/dl (6.4-8.2)
[2020-02-17 05:03] LABS: Partial Thromboplastin Ratio 1.9
[2020-02-17 05:32] LABS: Partial Thromboplastin Time 52.4 Seconds (21.0-31.0)
[2020-02-17] MEDS: HEPARIN SODIUM/DEXTROSE 25,000 UNITS/500 ML BAG IV SCH (05:43)
[2020-02-17] MEDS: dexAMETHasone 6 MG in SYRINGE 0 ML IV SCH (09:07)
[2020-02-17] MEDS: FOLIC ACID 1 MG TAB PO SCH (09:07)
[2020-02-17] MEDS: MULTIVITAMIN TAB PO SCH (09:07)
[2020-02-17] MEDS: THIAMINE HCL 100 MG TAB PO SCH (09:07)
[2020-02-17] MEDS: PANTOprazole 40 MG TAB PO SCH (09:07)
[2020-02-17] MEDS: ZINC SULFATE 220 MG CAPSULE PO SCH (09:08)
[2020-02-17] MEDS: CHOLECALCIFEROL 1,000 UNITS 25 MCG TAB PO SCH (09:08)
[2020-02-17] MEDS: INSULIN ASPART 100 UNITS/ML 3 ML PEN SC SCH ×4 (09:48→20:16)
--- NOTE | 2020-02-17 10:22 | Pulmonology Progress Note ---
Date of Service February 17, 2020 Assessment & Plan (1) Acute respiratory failure with hypoxia: Impression: 65-year-old female with diffuse pulmonary infiltrates in hypoxemic respiratory failure. She had a positive Covid test in the outpatient setting January 30. She has been treated with dexamethasone and remdesivir but unfortunately appears to have radiographic progression and persistent hypoxemic respiratory failure. Her case is now complicated by atrial fibrillation with rapid ventricular response. Recommendations: COVID-19 pneumonia: Continue Decadron and Remdesivir for 10 days total. I will defer to the hospitalist to order these medications. It appears that these medications were discontinued for unclear reasons. She received 2 doses of convalescent plasma this hospitalization. She is performing self proning at night. I encouraged proning during the daytime as well. Continue high flow oxygen to maintain saturations 88% and above. I encouraged her to get out of bed and sit in a chair as well. She has an incentive spirometer available as well that she is using. She completed a course of antibiotics. No further antibiotics required at this time. She is currently on a heparin drip for atrial fibrillation with rapid ventricular response. This is being managed by cardiology. Heart rates in the 90s to low 100s today. Echocardiogram noted to have grade 2 diastolic dysfunction. She appears fairly euvolemic today. (2) Abnormal CT scan of lung: (3) Paroxysmal atrial fibrillation with rapid ventricular response: (4) COVID-19: Admission and Anticipated Discharge Date Admission Date: February 08, 2020 Subjective Patient denies any significant shortness of breath, chest pain, fevers or chills. She is still requiring very high amounts of oxygen. She is on 40 L 90% FiO2 saturating around 85%. I discussed the patient with the bedside nurse and she had no significant urgent concerns at this time. Patient notes that she slept 7 to 8 hours yesterday while proning. Review of Systems Review of Systems: All systems reviewed & are unremarkable except as noted in HPI & below Physical Exam Constitutional: WD/WN, vitals as above Neck: trachea midline, no thyromegaly Respiratory: normal respiratory effort, lungs clear to auscultation Cardiovascular: RRR, no murmur, no edema Gastrointestinal (Abdomen): normal bowel sounds, soft, nontender, no hepatosplenomegaly Musculoskeletal: Extremities: extremities normal to inspection Skin: no rashes, warm and dry Lymphatic: no cervical lymphadenopathy Results & Data Results & Data ([facility]) Vital Signs (Past 12 Hours) Vital Signs Temp Pulse Pulse Resp BP Pulse Ox 02/17/20 07:55 98.6 F 91 H 19 128/81 85 L 02/17/20 07:39 92 H 18 88 L 02/17/20 03:25 79 18 87 L 02/17/20 03:22 97.9 F 88 27 H 129/76 87 L 02/17/20 00:14 98.1 F 85 27 H 132/69 83 L 02/16/20 23:18 85 20 93 I reviewed the vital signs, labs and imaging PG Care Time/CCT Total # of Minutes Spent Total Time Spent with Patient: Total time spent is greater than 50% in coordination of care (as documented) at patient's floor/unit and/or counseling patient: Coding Level of Care Code 63180 Subseq Hosp Care Lvl 2 Diagnoses Acute respiratory failure with hypoxia J96.[address] scan of lung R91.8 Paroxysmal atrial fibrillation with rapid ventricular response I48.0 COVID-19 U07.1
--- NOTE | 2020-02-17 12:26 | Communication Note ---
Date of Service: February 17, 2020 Chart, telemetry laboratory studies and echocardiogram reviewed. Appreciate pulmonology input No further atrial fibrillation since yesterday. No bradycardia arrhythmias. Blood pressures trending towards better control, heart rate 80s and 90s. Echocardiogram demonstrates preserved systolic function with grade 2 diastolic dysfunction. No pulmonary hypertension or significant valvular disease. Small underfilled IVC does not suggest volume overload We will continue metoprolol succinate at 75 mg/day with room to increase if necessary. Continue full anticoagulation with IV heparin Continue to treat underlying illness/hypoxia
[2020-02-17] MEDS: guaiFENesin 600 MG TABCR PO SCH ×2 (12:56→20:10)
--- NOTE | 2020-02-17 13:44 | Hospitalist Progress Note ---
Date of Service February 17, 2020 Assessment & Plan (1) Pneumonia due to 2019 novel coronavirus: Acute respiratory failure with hypoxia from Multifocal pneumonia possibly secondary to COVID-19 Paroxysmal atrial fibrillation with rapid ventricular response on this hospital stay -as per 02/08/2020 History and Physical "Patient is a 65-year-old female with history of hypertension, prediabetes, GERD, S/P Right breast lumpectomy and other medical problems presents with history of worsening shortness of breath, generalized weakness associated with severe tiredness since 7 days duration. Patient was tested positive for Covid on September 30, 2019. Patient also states that her was tested positive as well. She admits to returning back from [place] about 10 days ago" -patient also reported that she had COVID screen tested positive on 01/31/20, done at [facility]. On the 02/08/2020 admission COVID-19 test at [facility] emergency room, patient tested negative but pulmonary consult assessed that the test in the ED was a false negative -admission CTA "No evidence for pulmonary embolus. Multifocal bilateral groundglass and consolidative airspace opacities consistent with a pneumonia. This likely represents a viral pneumonia. A superimposed bacterial pneumonia cannot be excluded." -patient also requiring high flow nasal cannula oxygen, continue -on admission 02/08/2020, patient was started on remdesivir which was completed on 02/12/2020, and Dexamethasone (plan for up to 10 days of Dexamethasone), continue current Dexamethasone -patient was given convalescent plasma on 02/08/2020 night time, and on 02/09/2020 -continue incentive spirometry, guaifenesin, and current antibiotics of ceftriaxone and doxycycline, titrate the supplementary oxygen based on oxygen saturation -02/13/2020 Exam: Patient reports some upper respiratory congestion. However, she denies any subjective declines in her breathing. She had a cough on exam. She continues to be on high flow nasal cannula. Discussed with patient that the goal is to get here down to lower flow regular nasal cannula oxygen use before considering any role in hospital discharge. Patient denies pain anywhere of the body, or problems with eating, or other symptoms on review systems -02/14/2020: Patient continues to be on high flow nasal cannula. Continues to be on IV dexamethasone daily. Patient reports less cough. Patient denies other symptoms on review of systems. -02/15/2020 to 02/16/2020: Patient currently hospital day 7 and still no major transition from high flow nasal cannula. continues to be on IV dexamethasone. Continues to have diffuse crackles on lung exam. around 10:40PM on 02/16/2020, patient went into atrial fibrillation with rapid ventricular response, night time hospitalist started patient on IV Cardizem. Patient went back into normal sinus rhythm and rate by 7:40 AM on 02/16/2020. She was also initiated on IV heparin. Cardiology service Dr. Vergara stopped further IV diltiazem, increased metoprolol succinate to 75 mg/day and increase lisinopril to 40 mg/pm for further hypertension control and gave additional potassium. An echocardiogram was finished at time of hospitalist exam. Patient continues to be on high flow nasal cannula. she does palpitations of chest discomforts and notes that she had a "rough night." Pulmonary physician have been notified and he recommended "target 18 to 20 hours a day of prone positioning if the patient can tolerated" and recommend Burns catheter placement to assist with management of intake/output and to minimize hypoxemia associated with the patient getting up and using the restroom. 02/17/2020: hospitalist read pulmonary doctor Dr. Carson note's and discussed with him that she had a 5 day course of Remdesivir by 02/12/[address] Carson reports no need to start further remdesivir at this time. In regards to the dexamethasone will continue d6 mg Iv daily with last dose tenatively set for 02/19/2020 which should be at least minimum 10 days of IV steroids by that time. No antibiotics required at this time. as per pulmonary doctor. Patient remains on high flow nasal cannula. She has an incentive spirometer available as well that she is using. Patient reports she is proning as tolerated. She remains in sinus rhythm but has been on IV heparin since 02/15/2020 because of previously seen Paroxysmal atrial fibrillation with rapid ventricular response on 02/15/2020 to 02/16/2020.Echocardiogram noted to have grade 2 diastolic dysfunction. She appears fairly euvolemic today. Elevated D-dimer on admission -likely from underlying infection and inflammation -CTA showed no PE -Venous Dopplers negative for DVT (2) Diarrhea: -resolved Hypokalemia Hyponatremia -likely secondary to GI loses -generally Resolved after electrolyte replacements on this hospital stay -target serum potassium of 4 as per cardiology service Hypertension -had been on lisinopril and metoprolol -currently adjusted by cardiology on 02/16/2020 GERD -Continue PPI Prediabetes -HbA1c 6.3% -sliding scale insulin while on IV steroids when in the hospital DVT Px:currently on IV heparin because of recent afib RVR CODE STATUS: Full code Admission and Anticipated Discharge Date Admission Date: February 08, 2020 Subjective hospitalist read pulmonary doctor Dr. Carson note's and discussed with him that she had a 5 day course of Remdesivir by 02/12/[address] Carson reports no need to start further remdesivir at this time. In regards to the dexamethasone will continue d6 mg Iv daily with last dose tenatively set for 02/19/2020 which should be at least minimum 10 days of IV steroids by that time. No antibiotics required at this time. as per pulmonary doctor. Patient remains on high flow nasal cannula. She has an incentive spirometer available as well that she is using. Patient reports she is proning as tolerated. She remains in sinus rhythm but has been on IV heparin since 02/15/2020 because of previously seen Paroxysmal atrial fibrillation with rapid ventricular response on 02/15/2020 to 02/16/2020.Echocardiogram noted to have grade 2 diastolic dysfunction. She appears fairly euvolemic today. patient denies chest pain. no dizziness. no headache. no vomiting. sinus on telemetry. patient denies subjective shortness of breath when on high flow oxygen. she does have dry cough at times Review of Systems Review of Systems: All systems reviewed & are unremarkable except as noted in Subjective Physical Exam Constitutional: comfortable Eyes: EOM intact bilaterally ENMT: external ear and nose normal, oropharynx normal Neck: normal visual inspection Respiratory: normal respiratory effort (on high flow nasal cannula) Auscultation: + crackles Cardiovascular: Rate/Rhythm: regular rate Gastrointestinal (Abdomen): normal bowel sounds, soft, nontender, no hepatosplenomegaly Musculoskeletal: Head/Neck/Chest: normocephalic and head atraumatic Neurologic: PERRL, EOMI, accommodation nl, no face palsy, no dysarthria Psychiatric: A+Ox3, euthymic affect Results & Data Results & Data ([facility]) Vital Signs (Past 12 Hours) Vital Signs Temp Pulse Pulse Resp BP Pulse Ox 02/17/20 11:33 37.0 C 87 19 132/86 92 02/17/20 11:21 95 H 20 92 02/17/20 07:55 37.0 C 91 H 19 128/81 85 L 02/17/20 07:39 92 H 18 88 L 02/17/20 03:25 79 18 87 L 02/17/20 03:22 36.6 C 88 27 H 129/76 87 L
[2020-02-17] MEDS: lisinopril 40 MG TAB PO SCH (20:10)
[2020-02-17] MEDS: METOPROLOL SUCC 25MG EXT REL TAB PO SCH (20:11)
[2020-02-18] MEDS: HEPARIN SODIUM/DEXTROSE 25,000 UNITS/500 ML BAG IV SCH ×2 (02:05→21:34)
[2020-02-18 07:16] LABS: Basophils # (auto) 0.01 K/uL (0-0.2); Basophils % (auto) 0.1 %; Eosinophils # (auto) 0.06 K/uL (0-0.5); Eosinophils % (auto) 0.6 %; Hematocrit (blood only) 38.9 % (37-47); Hemoglobin 13.2 g/dL (12.0-16.0); Immature Granulocytes # (auto) 0.12 K/uL (0.00-0.02); Immature Granulocytes % (auto) 1.3 %; Lymphocytes % (auto) 10.8 %; Mean Corpuscular Hemoglobin 30.1 pg (25-34); Mean Corpuscular Hgb Conc 33.9 g/dL (32-36); Mean Corpuscular Volume 88.6 fL (80-100); Monocytes # (auto) 0.53 K/uL (0.11-0.59); Monocytes % (auto) 5.7 %; Neutrophils # (auto) 7.55 K/uL (1.4-6.5); Neutrophils % (auto) 81.5 %; Platelet Count 139 K/uL (130-400); RDW Coefficient of Variation 13.1 % (11.5-14.5); RDW Standard Deviation 42.5 fL (36.4-46.3); Red Blood Count 4.39 M/uL (4.2-5.4); White Blood Count 9.27 K/uL (4.8-10.8)
[2020-02-18 07:34] LABS: Partial Thromboplastin Ratio 2.1
[2020-02-18 07:35] LABS: Partial Thromboplastin Time 58.5 Seconds (21.0-31.0)
--- NOTE | 2020-02-18 07:57 | XRay Report ---
XR chest 1V portable CLINICAL HISTORY: follow up lung infiltrates COMPARISON STUDY: 02/16/2020 FINDINGS: The cardiac and mediastinal contours remain stable. There is slight progression in the bila teral pulmonary airspace opacities with a peripheral distribution. No pneumothorax is visualized. The re are no significant pleural effusions.[ IMPRESSION: 1. Slight progression in the bilateral multifocal airspace opacities ACT 112: Negative or not required by law. Electronically signed by: Renan Rivas M.D. 02/18/2020 7:56 AM
[2020-02-18] MEDS: ZINC SULFATE 220 MG CAPSULE PO SCH (08:58)
[2020-02-18] MEDS: MULTIVITAMIN TAB PO SCH (08:59)
[2020-02-18] MEDS: CHOLECALCIFEROL 1,000 UNITS 25 MCG TAB PO SCH (08:59)
[2020-02-18] MEDS: guaiFENesin 600 MG TABCR PO SCH ×2 (08:59→21:19)
[2020-02-18] MEDS: THIAMINE HCL 100 MG TAB PO SCH (08:59)
[2020-02-18] MEDS: FOLIC ACID 1 MG TAB PO SCH (09:00)
[2020-02-18] MEDS: dexAMETHasone 6 MG in SYRINGE 0 ML IV SCH (09:00)
[2020-02-18] MEDS: PANTOprazole 40 MG TAB PO SCH (09:00)
[2020-02-18] MEDS: INSULIN ASPART 100 UNITS/ML 3 ML PEN SC SCH ×4 (09:44→21:05)
--- NOTE | 2020-02-18 14:02 | Pulmonology Progress Note ---
Date of Service February 18, 2020 Assessment & Plan (1) Acute respiratory failure with hypoxia: Impression: 65-year-old female with diffuse pulmonary infiltrates in hypoxemic respiratory failure. She had a positive Covid test in the outpatient setting January 30. She has been treated with dexamethasone and remdesivir but unfortunately appears to have radiographic progression and persistent hypoxemic respiratory failure. Her case is now complicated by atrial fibrillation with rapid ventricular response. Recommendations: COVID-19 pneumonia: She is to complete 10 days of Decadron today. She completed a course of remdesivir convalescent plasma earlier during the hospitalization. She unfortunately has not had significant improvement in her oxygenation. Chest x-ray looks similar today compared to 02/16/2020. Self proning is recommended. Continue to wean oxygen to maintain sats above 88%. Continue to get out of bed to chair. Physical therapy would be beneficial. She is currently on a heparin drip due to atrial fibrillation with rapid ventricular response. Continue Linus nix. Pulmonary will follow from the periphery at this point. Please call with questions. Thank you for the consult. Overall prognosis is guarded. (2) Abnormal CT scan of lung: (3) Paroxysmal atrial fibrillation with rapid ventricular response: (4) COVID-19: Admission and Anticipated Discharge Date Admission Date: February 08, 2020 Subjective History and physical exam today was deferred due to the COVID-19 pandemic. I was able to evaluate the patient through the window. She does not appear to be in any distress. She is currently on 35 L of oxygen at 75% FiO2. Review of Systems Review of Systems: Deferred due to the COVID-19 pandemic. Physical Exam Physical Exam: Deferred. Please review hospitalist physical. Results & Data Results & Data ([facility]) Vital Signs (Past 12 Hours) Vital Signs Temp Pulse Pulse Resp BP Pulse Ox 02/18/20 11:32 94 H 18 91 02/18/20 11:24 98.1 F 87 19 126/76 92 02/18/20 08:17 98.4 F 87 24 127/90 89 L 02/18/20 07:32 82 02/18/20 07:05 87 22 87 L 02/18/20 04:45 98.2 F 87 20 134/85 87 L 02/18/20 02:05 80 18 91 I reviewed the vital signs, labs and imaging PG Care Time/CCT Total # of Minutes Spent Total Time Spent with Patient: Total time spent is greater than 50% in coordination of care (as documented) at patient's floor/unit and/or counseling patient: Coding Level of Care Code 55080 Subseq Hosp Care Lvl 2 Diagnoses Acute respiratory failure with hypoxia J96.[address] scan of lung R91.8 Paroxysmal atrial fibrillation with rapid ventricular response I48.0 COVID-19 U07.1 Time Spent (min) 18
--- NOTE | 2020-02-18 14:54 | Pulmonary Consultation ---
Date of Consultation February 18, 2020 Assessment & Plan (1) Pneumonia due to 2019 novel coronavirus: 65 yo F reasonably healthy with a hx of HTN admitted for hypoxia and pneumonia due to COVID19, with newly developed Afib with RVR during hospital stay. 1) COVID19 Pneumonia - completed remdesivir course. 6 mg daily steroid course to be completed on 02/18. - completed rocephin/doxycycline 7 day course for pneumonia - oxygen requirements slowly improving. Desaturates from 92 to 88 while talking - continue pulmonary toilet with incentive spirometry, flutter valve. - anticoagulation switched from lovenox to heparin drip due to afib per primary team - continue supportive care (2) Paroxysmal atrial fibrillation with rapid ventricular response: (3) Acute respiratory failure with hypoxia: (4) HTN (hypertension), benign: History of Present Illness Attending Physician: Alfredo Ingram MD History of Present Illness 65 yo F with hx HTN who tested positive for COVID19 on 01/31. Has received remdesivir treatment, is finishing a total of 10 days of steroids, and has completed a full course of IV ceftriaxone and doxycycline for COVID19 pneumonia. This morning feeling about the same as yesterday. Saying her nights are difficult because she has a hard time finding a comfortable position or being able to sleep. She still has some pain with deep inspiration, but otherwise denies any shortness of breath. She has not been able to get up and walk around due to having many tubes and wires around her, as well as the galarza catheter. Allergies Allergy/AdvReac Type Severity Reaction Status Date / Time No Known Allergies Allergy Unverified 02/08/20 13:47 Home Medications Medication Instructions Recorded Confirmed Type cholecalciferol (vitamin D3) 25 mcg PO QAM 02/08/20 02/08/20 History [Vitamin D3] [id number] [Vicks 30 ml PO QID PRN 02/08/20 02/08/20 History NyQuil Cold/Flu (doxyl)] lisinopril 30 mg PO PM 02/08/20 02/08/20 History metoprolol succinate 50 mg PO PM 02/08/20 02/08/20 History multivitamin 1 tab PO QAM 02/08/20 02/08/20 History pantoprazole 40 mg PO QAM 02/08/20 02/08/20 History zinc 50 mg PO QAM 02/08/20 02/08/20 History Patient History Medical History (Updated 02/16/20 @ 11:24 by Migel Vergara MD) HTN (hypertension), benign Pneumonia due to 2019 novel coronavirus Prediabetes Surgical History S/P lumpectomy, right breast Family History Father Tobacco abuse disorder Mother Cancer Social History Smoking Status: Never smoker Hx Alcohol Use: Yes Alcohol type: wine Hx Substance Use: No Preferred Language: Nauruan Dishwasher Busser Required: No Beliefs That Will Affect Care: None Current Living Situation: Spouse Other Information That Helps Us Care for You: No Feels Safe at Home: Yes Safety Concerns: Feels Safe At This Time Assistive Devices: Oxygen - Continuous Review of Systems Constitutional: no fever, no chills, no body aches, no fatigue and no weakness Respiratory: + pain on inspiration; no cough, no dyspnea and no hemoptysis Cardiovascular: no chest pain, no palpitations, no lightheadedness, no edema and no calf pain Gastrointestinal: no abdominal pain Neurologic: no tingling and no dizziness Physical Exam Physical Exam: VITAL SIGNS - Vital signs and nursing notes were reviewed. GENERAL -65 -year-old F sitting up in bed in no apparent distress SKIN - Without rashes. HEAD - NC/AT. NOSE - Midline and without cyanosis. No epistaxis or purulent drainage noted. Wearing high flow nasal cannula, set to 35L at 75%O2. MOUTH/OROPHARYNX - Without perioral cyanosis. LUNGS - Clear to auscultation bilaterally, good air flow throughout, no focal crackles, rhonchi, rales. CARDIAC - No murmur, rubs, or gallops appreciated. ABDOMEN -soft nontender nondistended with normal bowel sounds. EXTREMITIES - No clubbing or peripheral cyanosis. No pretibial edema present. Results & Data Results & Data ([facility]) Vital Signs (Past 12 Hours) Vital Signs Temp Pulse Pulse Resp BP Pulse Ox 02/18/20 11:32 94 H 18 91 02/18/20 11:24 36.7 C 87 19 126/76 92 02/18/20 08:17 36.9 C 87 24 127/90 89 L 02/18/20 07:32 82 02/18/20 07:05 87 22 87 L 02/18/20 04:45 36.8 C 87 20 134/85 87 L Laboratory Results WBC 9.27 K/uL (4.8-10.8) 02/18/20 07:02 RBC 4.39 M/uL (4.2-5.4) 02/18/20 07:02 Hgb 13.2 g/dL (12.0-16.0) 02/18/20 07:02 Hct 38.9 % (37-47) 02/18/20 07:02 MCV 88.6 fL (80-100) 02/18/20 07:02 MCH 30.1 pg (25-34) 02/18/20 07:02 MCHC 33.9 g/dL (32-36) 02/18/20 07:02 RDW Std Deviation 42.5 fL (36.4-46.3) 02/18/20 07:02 RDW Coeff of Uma 13.1 % (11.5-14.5) 02/18/20 07:02 Plt Count 139 K/uL (130-400) 02/18/20 07:02 MPV 10.0 fL (7.4-10.4) 02/18/20 07:02 Immature Gran % (Auto) 1.3 % 02/18/20 07:02 Neut % (Auto) 81.5 % 02/18/20 07:02 Lymph % (Auto) 10.8 % 02/18/20 07:02 [place] % (Auto) 5.7 % 02/18/20 07:02 Eos % (Auto) 0.6 % 02/18/20 07:02 Baso % (Auto) 0.1 % 02/18/20 07:02 Neut # (Auto) 7.55 K/uL (1.4-6.5) H 02/18/20 07:02 Lymph # (Auto) 1.00 K/uL (1.2-3.4) L 02/18/20 07:02 [place] # (Auto) 0.53 K/uL (0.11-0.59) 02/18/20 07:02 Eos # (Auto) 0.06 K/uL (0-0.5) 02/18/20 07:02 Baso # (Auto) 0.01 K/uL (0-0.2) 02/18/20 07:02 Immature Gran # (Auto) 0.12 K/uL (0.00-0.02) H 02/18/20 07:02 PT 12.1 Seconds (9.0-12.0) H 02/16/20 07:15 INR 1.2 (0.9-1.1) H 02/16/20 07:15 APTT 58.5 Seconds (21.0-31.0) H* 02/18/20 07:02 PTT Ratio 2.1 02/18/20 07:02 D-Dimer 2200 ug/L FEU (0-500) H* 02/08/20 12:37 Sodium 135 mmol/L (136-145) L 02/17/20 04:01 Potassium 4.1 mmol/L (3.5-5.1) 02/17/20 04:01 Chloride 104 mmol/L (98-107) 02/17/20 04:01 Carbon Dioxide 27 mmol/L (21-32) 02/17/20 04:01 Anion Gap 4.0 (3-11) 02/17/20 04:01 BUN 20 mg/dl (7-18) H 02/17/20 04:01 Creatinine 0.79 mg/dl (0.6-1.2) 02/17/20 04:01 Est Cr Clr Drug Dosing 75.7 ml/min 02/17/20 04:01 Est GFR ( Amer) 90.4 02/17/20 04:01 Est GFR (Non-Af Amer) 78.0 02/17/20 04:01 BUN/Creatinine Ratio 25.3 (10-20) H 02/17/20 04:01 Glucose 125 mg/dl (70-99) H 02/17/20 04:01 POC Glucose 133 mg/dl (70-99) H 02/18/20 11:30 Estimat Average Glucose 134 mg/dl 02/09/20 05:38 Hemoglobin A1c 6.3 % (4.5-5.6) H 02/09/20 05:38 Lactate 1.4 mmol/L (0.4-2.0) 02/08/20 12:37 Calcium 8.3 mg/dl (8.5-10.1) L 02/17/20 04:01 Phosphorus 3.3 mg/dl (2.5-4.9) 02/12/20 07:07 Magnesium 2.5 mg/dl (1.8-2.4) H 02/17/20 04:01 Ferritin 927.4 ng/ml (8-388) H 02/09/20 05:38 Total Bilirubin 0.5 mg/dl (0.2-1) 02/17/20 04:01 AST 17 U/L (15-37) 02/17/20 04:01 ALT 36 U/L (12-78) 02/17/20 04:01 Alkaline Phosphatase 86 U/L (45-117) 02/17/20 04:01 Total Creatine Kinase 232 U/L (26-192) H 02/09/20 05:38 Troponin I < 0.015 ng/ml (0-0.045) 02/16/20 07:11 C-Reactive Protein 3.06 mg/dl (0-0.29) H 02/08/20 12:37 Total Protein 6.3 gm/dl (6.4-8.2) L 02/17/20 04:01 Albumin 2.1 gm/dl (3.4-5.0) L 02/17/20 04:01 Globulin 4.2 gm/dl (2.5-4.0) H 02/17/20 04:01 Albumin/Globulin Ratio 0.5 (0.9-2) L 02/17/20 04:01 Lipase 485 U/L (73-393) H 02/08/20 12:37 Procalcitonin < 0.05 ng/ml (0-0.5) 02/09/20 11:40 Urine Color Yellow 02/08/20 Unknown Urine Appearance Clear (Clear) 02/08/20 Unknown Urine pH 6.5 (4.5-7.5) 02/08/20 Unknown Ur Specific [place] 1.027 (1.000-1.030) 02/08/20 Unknown Urine Protein 1+ (Negative) H 02/08/20 Unknown Urine Glucose (UA) Negative (Negative) 02/08/20 Unknown Urine Ketones Negative (Negative) 02/08/20 Unknown Urine Blood Trace (Negative) H 02/08/20 Unknown Urine Nitrite Negative (Negative) 02/08/20 Unknown Urine Bilirubin Negative (Negative) 02/08/20 Unknown Urine Urobilinogen Negative (Negative) 02/08/20 Unknown Ur Leukocyte Esterase Trace (Negative) H 02/08/20 Unknown Urine WBC (Auto) 1-5 /hpf (0-5) 02/08/20 Unknown Urine RBC (Auto) 0-4 /hpf (0-4) 02/08/20 Unknown U Hyaline Cast (Auto) 0 /lpf (0-5) 02/08/20 Unknown U Epithel Cells (Auto) 20-30 /lpf (0-5) H 02/08/20 Unknown Urine Bacteria (Auto) Negative (Negative) 02/08/20 Unknown COVID-19 Eval Order Covid19 IDNow [facility] 02/08/20 12:46 SARS-CoV-2, RNA, NAAT NEGATIVE (NEGATIVE) 02/08/20 12:46 Blood Type B Positive 02/08/20 17:29 Antibody Screen NEGATIVE 02/08/20 17:29
--- NOTE | 2020-02-18 17:28 | Hospitalist Progress Note ---
Date of Service February 18, 2020 Assessment & Plan (1) Pneumonia due to 2019 novel coronavirus: Acute respiratory failure with hypoxia from Multifocal pneumonia possibly secondary to COVID-19 Paroxysmal atrial fibrillation with rapid ventricular response on this hospital stay -as per 02/08/2020 History and Physical "Patient is a 65-year-old female with history of hypertension, prediabetes, GERD, S/P Right breast lumpectomy and other medical problems presents with history of worsening shortness of breath, generalized weakness associated with severe tiredness since 7 days duration. Patient was tested positive for Covid on September 30, 2019. Patient also states that her was tested positive as well. She admits to returning back from [place] about 10 days ago" -patient also reported that she had COVID screen tested positive on 01/31/20, done at [facility]. On the 02/08/2020 admission COVID-19 test at [facility] emergency room, patient tested negative but pulmonary consult assessed that the test in the ED was a false negative -admission CTA "No evidence for pulmonary embolus. Multifocal bilateral groundglass and consolidative airspace opacities consistent with a pneumonia. This likely represents a viral pneumonia. A superimposed bacterial pneumonia cannot be excluded." -patient also requiring high flow nasal cannula oxygen, continue -on admission 02/08/2020, patient was started on remdesivir which was completed on 02/12/2020, and Dexamethasone (plan for up to 10 days of Dexamethasone), continue current Dexamethasone -patient was given convalescent plasma on 02/08/2020 night time, and on 02/09/2020 -continue incentive spirometry, guaifenesin, and current antibiotics of ceftriaxone and doxycycline, titrate the supplementary oxygen based on oxygen saturation -02/13/2020 Exam: Patient reports some upper respiratory congestion. However, she denies any subjective declines in her breathing. She had a cough on exam. She continues to be on high flow nasal cannula. Discussed with patient that the goal is to get here down to lower flow regular nasal cannula oxygen use before considering any role in hospital discharge. Patient denies pain anywhere of the body, or problems with eating, or other symptoms on review systems -02/14/2020: Patient continues to be on high flow nasal cannula. Continues to be on IV dexamethasone daily. Patient reports less cough. Patient denies other symptoms on review of systems. -02/15/2020 to 02/16/2020: Patient currently hospital day 7 and still no major transition from high flow nasal cannula. continues to be on IV dexamethasone. Continues to have diffuse crackles on lung exam. around 10:40PM on 02/16/2020, patient went into atrial fibrillation with rapid ventricular response, night time hospitalist started patient on IV Cardizem. Patient went back into normal sinus rhythm and rate by 7:40 AM on 02/16/2020. She was also initiated on IV heparin. Cardiology service Dr. Vergara stopped further IV diltiazem, increased metoprolol succinate to 75 mg/day and increase lisinopril to 40 mg/pm for further hypertension control and gave additional potassium. An echocardiogram was finished at time of hospitalist exam. Patient continues to be on high flow nasal cannula. she does palpitations of chest discomforts and notes that she had a "rough night." Pulmonary physician have been notified and he recommended "target 18 to 20 hours a day of prone positioning if the patient can tolerated" and recommend Burns catheter placement to assist with management of intake/output and to minimize hypoxemia associated with the patient getting up and using the restroom. 02/17/2020: hospitalist read pulmonary doctor Dr. Carson note's and discussed with him that she had a 5 day course of Remdesivir by 02/12/[address] Carson reports no need to start further remdesivir at this time. In regards to the dexamethasone will continue d6 mg Iv daily with last dose tenatively set for 02/19/2020 which should be at least minimum 10 days of IV steroids by that time. No antibiotics required at this time. as per pulmonary doctor. Patient remains on high flow nasal cannula. She has an incentive spirometer available as well that she is using. Patient reports she is proning as tolerated. She remains in sinus rhythm but has been on IV heparin since 02/15/2020 because of previously seen Paroxysmal atrial fibrillation with rapid ventricular response on 02/15/2020 to 02/16/2020.Echocardiogram noted to have grade 2 diastolic dysfunction. She appears fairly euvolemic today. 02/18/2020: Patient continues to be on high flow nasal cannula and heparin IV. She reports she has been able to do proning today. Patient denies subjective shortness of breath at time of exam while on high flow oxygen. Patient denies other symptoms of acute pain. Patient denies blood loss by urine or bowel movement. she is is normal sinus rhythm. No other complaints on review of systems. Patient continues to be followed by pulmonary team. Elevated D-dimer on admission -likely from underlying infection and inflammation -CTA showed no PE -Venous Dopplers negative for DVT (2) Diarrhea: -resolved Hypokalemia Hyponatremia -likely secondary to GI loses -generally Resolved after electrolyte replacements on this hospital stay -target serum potassium of 4 as per cardiology service Hypertension -had been on lisinopril and metoprolol -currently adjusted by cardiology on 02/16/2020 GERD -Continue PPI Prediabetes -HbA1c 6.3% -sliding scale insulin while on IV steroids when in the hospital DVT Px:currently on IV heparin because of recent afib RVR CODE STATUS: Full code Admission and Anticipated Discharge Date Admission Date: February 08, 2020 Subjective 02/18/2020: Patient continues to be on high flow nasal cannula and heparin IV. She reports she has been able to do proning today. Patient denies subjective shortness of breath at time of exam while on high flow oxygen. Patient denies other symptoms of acute pain. Patient denies blood loss by urine or bowel movement. No other complaints on review of systems. she is is normal sinus rhythm. Patient continues to be followed by pulmonary team Review of Systems Review of Systems: All systems reviewed & are unremarkable except as noted in Subjective Physical Exam Constitutional: comfortable Eyes: EOM intact bilaterally ENMT: external ear and nose normal, oropharynx normal Neck: normal visual inspection Respiratory: normal respiratory effort (on high flow nasal cannula) Cardiovascular: Rate/Rhythm: regular rate Gastrointestinal (Abdomen): normal bowel sounds, soft, nontender, no hepatosplenomegaly Musculoskeletal: Head/Neck/Chest: normocephalic and head atraumatic Neurologic: PERRL, EOMI, accommodation nl, no face palsy, no dysarthria Psychiatric: A+Ox3, euthymic affect Results & Data Results & Data ([facility]) Vital Signs (Past 12 Hours) Vital Signs Temp Pulse Pulse Pulse Resp BP Pulse Ox 02/18/20 16:36 36.8 C 92 H 17 127/78 90 02/18/20 16:00 91 H 02/18/20 15:17 94 H 18 94 02/18/20 11:32 94 H 18 91 02/18/20 11:24 36.7 C 87 19 126/76 92 02/18/20 08:17 36.9 C 87 24 127/90 89 L 02/18/20 07:32 82 02/18/20 07:05 87 22 87 L
[2020-02-18] MEDS: METOPROLOL SUCC 25MG EXT REL TAB PO SCH (21:20)
[2020-02-18] MEDS: lisinopril 40 MG TAB PO SCH (21:20)
[2020-02-19 07:46] LABS: Basophils # (auto) 0.01 K/uL (0-0.2); Basophils % (auto) 0.1 %; Eosinophils # (auto) 0.07 K/uL (0-0.5); Eosinophils % (auto) 0.7 %; Hematocrit (blood only) 38.8 % (37-47); Hemoglobin 13.3 g/dL (12.0-16.0); Immature Granulocytes % (auto) 1.9 %; Lymphocytes % (auto) 12.1 %; Mean Corpuscular Hemoglobin 30.4 pg (25-34); Mean Corpuscular Hgb Conc 34.3 g/dL (32-36); Mean Corpuscular Volume 88.8 fL (80-100); Mean Platelet Volume 10.4 fL (7.4-10.4); Monocytes # (auto) 0.85 K/uL (0.11-0.59); Monocytes % (auto) 7.9 %; Neutrophils % (auto) 77.3 %; Platelet Count 154 K/uL (130-400); RDW Coefficient of Variation 13.1 % (11.5-14.5); RDW Standard Deviation 42.5 fL (36.4-46.3); Red Blood Count 4.37 M/uL (4.2-5.4); White Blood Count 10.73 K/uL (4.8-10.8)
[2020-02-19 08:04] LABS: Partial Thromboplastin Ratio 1.7
[2020-02-19 08:05] LABS: Partial Thromboplastin Time 47.3 Seconds (21.0-31.0)
[2020-02-19] MEDS: INSULIN ASPART 100 UNITS/ML 3 ML PEN SC SCH ×4 (08:30→22:18)
[2020-02-19] MEDS: ZINC SULFATE 220 MG CAPSULE PO SCH (08:34)
[2020-02-19] MEDS: CHOLECALCIFEROL 1,000 UNITS 25 MCG TAB PO SCH (09:21)
[2020-02-19] MEDS: PANTOprazole 40 MG TAB PO SCH (09:22)
[2020-02-19] MEDS: MULTIVITAMIN TAB PO SCH (09:22)
[2020-02-19] MEDS: FOLIC ACID 1 MG TAB PO SCH (09:22)
[2020-02-19] MEDS: dexAMETHasone 6 MG in SYRINGE 0 ML IV SCH (09:22)
[2020-02-19] MEDS: guaiFENesin 600 MG TABCR PO SCH ×2 (12:14→21:34)
[2020-02-19] MEDS: THIAMINE HCL 100 MG TAB PO SCH (12:14)
[2020-02-19 15:40] LABS: BUN Creatinine Ratio 32.6 (10-20); C Reactive Protein 2.96 mg/dl (0-0.29); Calcium 9.2 mg/dl (8.5-10.1); Creatinine Clr Calc Pharmacy 80.9 ml/min; D Dimer 7340 ug/L FEU (0-500); Est GFR (African American) 97.8; Est GFR (Non-African American) 84.4; Potassium 4.2 mmol/L (3.5-5.1)
[2020-02-19] MEDS: HEPARIN SODIUM/DEXTROSE 25,000 UNITS/500 ML BAG IV SCH (16:14)
[2020-02-19 19:30] LABS: Magnesium 2.3 mg/dl (1.8-2.4)
[2020-02-19] MEDS ORDERED: FUROSEMIDE 20 MG in SYRINGE 0 ML IV ONE (19:45)
--- NOTE | 2020-02-19 20:52 | Hospitalist Progress Note ---
Date of Service February 19, 2020 Assessment & Plan (1) Pneumonia due to 2019 novel coronavirus: Acute respiratory failure with hypoxia from Multifocal pneumonia possibly secondary to COVID-[address] Alfredo Ingram's notes: -as per 02/08/2020 History and Physical "Patient is a 65-year-old female with history of hypertension, prediabetes, GERD, S/P Right breast lumpectomy and other medical problems presents with history of worsening shortness of breath, generalized weakness associated with severe tiredness since 7 days duration. Patient was tested positive for Covid on September 30, 2019. Patient also states that her was tested positive as well. She admits to returning back from [place] about 10 days ago" -patient also reported that she had COVID screen tested positive on 01/31/20, done at [facility] On the 02/08/2020 admission COVID-19 test at [facility] emergency room, patient tested negative but pulmonary consult assessed that the test in the ED was a false negative -admission CTA "No evidence for pulmonary embolus. Multifocal bilateral groundglass and consolidative airspace opacities consistent with a pneumonia. This likely represents a viral pneumonia. A superimposed bacterial pneumonia cannot be excluded." Patient has completed course of remdesivir, dexamethasone, also has received convalescent plasma Still remains on high flow oxygen Repeat chest x-ray 02/18/2020 showing no significant change Will order Lasix 20 mg IV dose today Continue to encourage prone positioning Continue to monitor closely Paroxysmal atrial fibrillation with rapid ventricular response on this hospital stay remains in sinus rhythm Had an episode of nonsustained V. tach around 11 seconds today Continue metoprolol twice daily, heparin drip Monitor electrolytes Elevated D-dimer on admission -likely from underlying infection and inflammation -CTA showed no PE -Venous Dopplers negative for DVT (2) Diarrhea: -resolved Hypokalemia Hyponatremia -likely secondary to GI loses -Continue to monitor Hypertension -had been on lisinopril and metoprolol -currently adjusted by cardiology on 02/16/2020 GERD -Continue PPI Prediabetes -HbA1c 6.3% -sliding scale insulin while on IV steroids when in the hospital DVT Px:currently on IV heparin because of recent afib RVR CODE STATUS: Full code Admission and Anticipated Discharge Date Admission Date: February 08, 2020 Subjective Follow-up for acute hypoxic respiratory failure, COVID-19 pneumonia Seen at bedside, patient on prone positioning Called patient before bedside evaluation for further history and subjective interview On exam, patient is not in distress, on high flow oxygen States her breathing is about the same as yesterday, denies cough, pain, leg pain No other symptom Review of Systems Review of Systems: All systems reviewed & are unremarkable except as noted in Subjective Physical Exam Physical Exam: General- oriented x 3, not in distress, speaks in sentences with no effort or accessory muscle use Eyes- anicteric Neck- no JVD Lungs-positive crackles at the bases, no wheezing, good air entry bilaterally Heart- normal rate, regular rhythm; no murmurs Abdomen- normal bowel sounds, nondistended, soft, nontender Extremities- trace pretibial edema, no calf tenderness Neuro- alert, oriented x 3; no gross focal neurologic deficits Skin- warm & dry Results & Data Results & Data ([facility]) Vital Signs (Past 12 Hours) Vital Signs Temp Pulse Pulse Pulse Resp BP Pulse Ox 02/19/20 19:25 88 19 90 02/19/20 19:17 36.7 C 89 24 132/88 90 02/19/20 16:08 36.7 C 94 H 22 123/73 90 02/19/20 16:00 95 H 02/19/20 15:02 97 H 21 89 L 02/19/20 12:17 36.7 C 91 H 18 98/65 L 88 L 02/19/20 11:32 98 H 18 92 Laboratory Results Laboratory Results - last 24 hr 02/18/20 02/19/20 02/19/20 20:50 07:27 07:27 WBC 10.73 RBC 4.37 Hgb 13.3 Hct 38.8 MCV 88.8 MCH 30.4 MCHC 34.3 RDW Std Deviation 42.5 RDW Coeff of Uma 13.1 Plt Count 154 MPV 10.4 Immature Gran % (Auto) 1.9 Neut % (Auto) 77.3 Lymph % (Auto) 12.1 Lassen % (Auto) 7.9 Eos % (Auto) 0.7 Baso % (Auto) 0.1 Neut # (Auto) 8.30 H Lymph # (Auto) 1.30 Lassen # (Auto) 0.85 H Eos # (Auto) 0.07 Baso # (Auto) 0.01 Immature Gran # (Auto) 0.20 H ESR APTT 47.3 H* PTT Ratio 1.7 D-Dimer Sodium Potassium Chloride Carbon Dioxide Anion Gap BUN Creatinine Est Cr Clr Drug Dosing Est GFR ( Amer) Est GFR (Non-Af Amer) BUN/Creatinine Ratio Glucose POC Glucose 171 H Calcium Magnesium C-Reactive Protein 02/19/20 02/19/20 02/19/20 07:27 07:30 08:26 WBC RBC Hgb Hct MCV MCH MCHC RDW Std Deviation RDW Coeff of Uma Plt Count MPV Immature Gran % (Auto) Neut % (Auto) Lymph % (Auto) Lassen % (Auto) Eos % (Auto) Baso % (Auto) Neut # (Auto) Lymph # (Auto) Lassen # (Auto) Eos # (Auto) Baso # (Auto) Immature Gran # (Auto) ESR 38 H APTT PTT Ratio D-Dimer Sodium Potassium Chloride Carbon Dioxide Anion Gap BUN Creatinine Est Cr Clr Drug Dosing Est GFR ( Amer) Est GFR (Non-Af Amer) BUN/Creatinine Ratio Glucose POC Glucose 92 Calcium Magnesium C-Reactive Protein 3.21 H 02/19/20 02/19/20 02/19/20 11:44 14:57 14:57 WBC RBC Hgb Hct MCV MCH MCHC RDW Std Deviation RDW Coeff of Uma Plt Count MPV Immature Gran % (Auto) Neut % (Auto) Lymph % (Auto) Lassen % (Auto) Eos % (Auto) Baso % (Auto) Neut # (Auto) Lymph # (Auto) Lassen # (Auto) Eos # (Auto) Baso # (Auto) Immature Gran # (Auto) ESR APTT PTT Ratio D-Dimer 7340 H* Sodium 136 Potassium 4.2 Chloride 103 Carbon Dioxide 25 Anion Gap 8.0 BUN 24 H Creatinine 0.74 Est Cr Clr Drug Dosing 80.9 Est GFR ( Amer) 97.8 Est GFR (Non-Af Amer) 84.4 BUN/Creatinine Ratio 32.6 H Glucose 147 H POC Glucose 118 H Calcium 9.2 Magnesium 2.3 C-Reactive Protein 2.96 H 02/19/20 02/19/20 02/19/20 14:57 16:02 20:38 WBC RBC Hgb Hct MCV MCH MCHC RDW Std Deviation RDW Coeff of Uma Plt Count MPV Immature Gran % (Auto) Neut % (Auto) Lymph % (Auto) Lassen % (Auto) Eos % (Auto) Baso % (Auto) Neut # (Auto) Lymph # (Auto) Lassen # (Auto) Eos # (Auto) Baso # (Auto) Immature Gran # (Auto) ESR APTT PTT Ratio D-Dimer Sodium Potassium Chloride Carbon Dioxide Anion Gap BUN Creatinine Est Cr Clr Drug Dosing Est GFR ( Amer) Est GFR (Non-Af Amer) BUN/Creatinine Ratio Glucose POC Glucose 169 H 132 H Calcium Magnesium Cancelled C-Reactive Protein
[2020-02-19] MEDS: METOPROLOL SUCC 25MG EXT REL TAB PO SCH (21:34)
[2020-02-19] MEDS: lisinopril 40 MG TAB PO SCH (21:36)
[2020-02-20 07:51] LABS: Partial Thromboplastin Ratio 1.5; Partial Thromboplastin Time 41.3 Seconds (21.0-31.0)
[2020-02-20 08:13] LABS: BUN Creatinine Ratio 31.7 (10-20); Calcium 9.4 mg/dl (8.5-10.1); Creatinine Clr Calc Pharmacy 85.5 ml/min; Est GFR (African American) 104.6; Est GFR (Non-African American) 90.3; Magnesium 2.4 mg/dl (1.8-2.4); Potassium 3.9 mmol/L (3.5-5.1)
[2020-02-20] MEDS: INSULIN ASPART 100 UNITS/ML 3 ML PEN SC SCH ×4 (08:30→20:35)
[2020-02-20] MEDS: ZINC SULFATE 220 MG CAPSULE PO SCH (08:34)
[2020-02-20] MEDS: MULTIVITAMIN TAB PO SCH (08:34)
[2020-02-20] MEDS: THIAMINE HCL 100 MG TAB PO SCH (08:34)
[2020-02-20] MEDS: PANTOprazole 40 MG TAB PO SCH (08:34)
[2020-02-20] MEDS: guaiFENesin 600 MG TABCR PO SCH ×2 (08:34→20:43)
[2020-02-20] MEDS: CHOLECALCIFEROL 1,000 UNITS 25 MCG TAB PO SCH (08:34)
[2020-02-20] MEDS: FOLIC ACID 1 MG TAB PO SCH (08:34)
[2020-02-20] MEDS ORDERED: POTASSIUM CHLORIDE CRTAB 20 MEQ TABCR PO STA (12:07)
--- NOTE | 2020-02-20 12:09 | Communication Note ---
Date of Service: February 20, 2020 Patient's records and telemetry reviewed. Once again had atrial fibrillation last evening. No acute decompensation hemodynamically. Remains marginally compensated from a pulmonary standpoint and oxygenation level Slightly more active today out of bed to chair. Recommendations: Reduce lisinopril to 20 mg every afternoon. Increase metoprolol succinate to 100 mg every afternoon. Supplement potassium with daily 10 medical events per day, 20 mEq today
[2020-02-20] MEDS: HEPARIN SODIUM/DEXTROSE 25,000 UNITS/500 ML BAG IV SCH ×2 (12:18→22:32)
[2020-02-20 15:49] LABS: Partial Thromboplastin Ratio 1.4; Partial Thromboplastin Time 38.5 Seconds (21.0-31.0)
--- NOTE | 2020-02-20 19:32 | Hospitalist Progress Note ---
Date of Service February 20, 2020 Assessment & Plan (1) Pneumonia due to 2019 novel coronavirus: Acute respiratory failure with hypoxia from Multifocal pneumonia possibly secondary to COVID-[address] Alfredo Ingram's notes: -as per 02/08/2020 History and Physical "Patient is a 65-year-old female with history of hypertension, prediabetes, GERD, S/P Right breast lumpectomy and other medical problems presents with history of worsening shortness of breath, generalized weakness associated with severe tiredness since 7 days duration. Patient was tested positive for Covid on September 30, 2019. Patient also states that her was tested positive as well. She admits to returning back from [place] about 10 days ago" -patient also reported that she had COVID screen tested positive on 01/31/20, done at [facility]. On the 02/08/2020 admission COVID-19 test at [facility] emergency room, patient tested negative but pulmonary consult assessed that the test in the ED was a false negative -admission CTA "No evidence for pulmonary embolus. Multifocal bilateral groundglass and consolidative airspace opacities consistent with a pneumonia. This likely represents a viral pneumonia. A superimposed bacterial pneumonia cannot be excluded." 02/18 Patient has completed course of remdesivir, dexamethasone, also has received convalescent plasma Still remains on high flow oxygen Repeat chest x-ray 02/18/2020 showing no significant change Will order Lasix 20 mg IV dose today Continue to encourage prone positioning Continue to monitor closely 02/19 feels improved hold off on Lasix today for marginal BP d/c Lisinopril monitor, wean off O2 accordingly Paroxysmal atrial fibrillation with rapid ventricular response on this hospital stay remains in sinus rhythm 02/18 Had an episode of nonsustained V. tach around 11 seconds Continue metoprolol twice daily, heparin drip Monitor electrolytes Elevated D-dimer on admission -likely from underlying infection and inflammation -CTA showed no PE -Venous Dopplers negative for DVT (2) Diarrhea: -resolved Hypokalemia Hyponatremia -likely secondary to GI loses -Continue to monitor Hypertension -on Metoprolol - hold Lisinopril for marginal BP - GERD -Continue PPI Prediabetes -HbA1c 6.3% -sliding scale insulin while on IV steroids when in the hospital DVT Px:currently on IV heparin because of recent afib RVR CODE STATUS: Full code Disposition pending fdc acute care being explored Admission and Anticipated Discharge Date Admission Date: February 08, 2020 Subjective ff up for acute respiratory failure, COVID pneumonia, A fib etc seen resting in bed, sitting up states she feels better today compared to yesterday still on high flow o2, 75% today breathing is better compared to yesterday less cough no chest pain, palpitations, dizziness no other symptoms Review of Systems Review of Systems: All systems reviewed & are unremarkable except as noted in Subjective Physical Exam Physical Exam: General- oriented x 3, not in distress, speaks in sentences with no effort or accessory muscle use Eyes- anicteric Neck- no JVD Lungs- mild rales at the bases, no wheezing Heart- normal rate, regular rhythm; no murmurs Abdomen- normal bowel sounds, nondistended, soft, nontender Extremities- no pretibial edema, no calf tenderness Neuro- alert, oriented x 3; no gross focal neurologic deficits Skin- warm & dry Results & Data Results & Data ([facility]) Vital Signs (Past 12 Hours) Vital Signs Temp Pulse Pulse Resp BP Pulse Ox 02/20/20 19:23 83 16 96 02/20/20 15:56 36.9 C 93 H 23 103/68 90 02/20/20 11:50 36.7 C 100 H 22 93/65 L 90 02/20/20 11:13 91 H 20 93 02/20/20 07:34 91 H 19 89 L Laboratory Results Laboratory Results - last 24 hr 02/19/20 02/20/20 02/20/20 20:38 07:22 07:22 APTT 41.3 H PTT Ratio 1.5 Sodium 137 Potassium 3.9 Chloride 103 Carbon Dioxide 28 Anion Gap 6.0 BUN 22 H Creatinine 0.70 Est Cr Clr Drug Dosing 85.5 Est GFR ( Amer) 104.6 Est GFR (Non-Af Amer) 90.3 BUN/Creatinine Ratio 31.7 H Glucose 107 H POC Glucose 132 H Calcium 9.4 Magnesium 2.4 02/20/20 02/20/20 02/20/20 07:29 11:48 15:30 APTT 38.5 H PTT Ratio 1.4 Sodium Potassium Chloride Carbon Dioxide Anion Gap BUN Creatinine Est Cr Clr Drug Dosing Est GFR ( Amer) Est GFR (Non-Af Amer) BUN/Creatinine Ratio Glucose POC Glucose 110 H 105 H Calcium Magnesium 02/20/20 16:01 APTT PTT Ratio Sodium Potassium Chloride Carbon Dioxide Anion Gap BUN Creatinine Est Cr Clr Drug Dosing Est GFR ( Amer) Est GFR (Non-Af Amer) BUN/Creatinine Ratio Glucose POC Glucose 125 H Calcium Magnesium
[2020-02-20] MEDS: METOPROLOL SUCC 50MG EXT REL TAB PO SCH (20:44)
[2020-02-20] MEDS ORDERED: lisinopril 20 MG TAB PO SCH (21:00)
[2020-02-20 22:27] LABS: Partial Thromboplastin Ratio 1.5; Partial Thromboplastin Time 41.6 Seconds (21.0-31.0)
[2020-02-21] MEDS: HEPARIN SODIUM/DEXTROSE 25,000 UNITS/500 ML BAG IV SCH ×3 (05:25→21:31)
[2020-02-21 05:33] LABS: Partial Thromboplastin Ratio 1.5; Partial Thromboplastin Time 41.6 Seconds (21.0-31.0)
[2020-02-21 05:59] LABS: BUN Creatinine Ratio 31.7 (10-20); Calcium 8.7 mg/dl (8.5-10.1); Creatinine Clr Calc Pharmacy 74.8 ml/min; Est GFR (Non-African American) 76.8; Potassium 4.6 mmol/L (3.5-5.1)
[2020-02-21] MEDS: INSULIN ASPART 100 UNITS/ML 3 ML PEN SC SCH ×4 (08:00→20:33)
[2020-02-21] MEDS: FOLIC ACID 1 MG TAB PO SCH (08:49)
[2020-02-21] MEDS: MULTIVITAMIN TAB PO SCH (08:49)
[2020-02-21] MEDS: guaiFENesin 600 MG TABCR PO SCH ×2 (08:49→20:24)
[2020-02-21] MEDS: ZINC SULFATE 220 MG CAPSULE PO SCH (08:50)
[2020-02-21] MEDS: CHOLECALCIFEROL 1,000 UNITS 25 MCG TAB PO SCH (08:50)
[2020-02-21] MEDS: PANTOprazole 40 MG TAB PO SCH (08:50)
[2020-02-21] MEDS: POTASSIUM CHLORIDE 10 MEQ TABCR PO SCH (08:50)
[2020-02-21] MEDS: THIAMINE HCL 100 MG TAB PO SCH (08:50)
[2020-02-21 12:34] LABS: Partial Thromboplastin Ratio 1.6; Partial Thromboplastin Time 44.7 Seconds (21.0-31.0)
[2020-02-21 19:33] LABS: Partial Thromboplastin Ratio 1.7
[2020-02-21 19:48] LABS: Partial Thromboplastin Time 48.2 Seconds (21.0-31.0)
[2020-02-21] MEDS: METOPROLOL SUCC 50MG EXT REL TAB PO SCH (20:25)
--- NOTE | 2020-02-21 20:48 | Hospitalist Progress Note ---
Date of Service February 21, 2020 Assessment & Plan (1) Pneumonia due to 2019 novel coronavirus: Acute respiratory failure with hypoxia from Multifocal pneumonia possibly secondary to COVID-[address] Alfredo Ingram's notes: -as per 02/08/2020 History and Physical "Patient is a 65-year-old female with history of hypertension, prediabetes, GERD, S/P Right breast lumpectomy and other medical problems presents with history of worsening shortness of breath, generalized weakness associated with severe tiredness since 7 days duration. Patient was tested positive for Covid on September 30, 2019. Patient also states that her was tested positive as well. She admits to returning back from [place] about 10 days ago" -patient also reported that she had COVID screen tested positive on 01/31/20, done at [facility]. On the 02/08/2020 admission COVID-19 test at [facility] emergency room, patient tested negative but pulmonary consult assessed that the test in the ED was a false negative -admission CTA "No evidence for pulmonary embolus. Multifocal bilateral groundglass and consolidative airspace opacities consistent with a pneumonia. This likely represents a viral pneumonia. A superimposed bacterial pneumonia cannot be excluded." 02/18 Patient has completed course of remdesivir, dexamethasone, also has received convalescent plasma Still remains on high flow oxygen Repeat chest x-ray 02/18/2020 showing no significant change Will order Lasix 20 mg IV dose today Continue to encourage prone positioning Continue to monitor closely 02/19 feels improved hold off on Lasix today for marginal BP d/c Lisinopril monitor, wean off O2 accordingly 02/20 Weaned off high flow O2 Clinically improving Continue to monitor Wean off oxygen as able Paroxysmal atrial fibrillation with rapid ventricular response on this hospital stay remains in sinus rhythm 02/18 Had an episode of nonsustained V. tach around 11 seconds Continue metoprolol twice daily, heparin drip Monitor electrolytes 02/21/2020 No A. 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 Admission and Anticipated Discharge Date Admission Date: February 08, 2020 Subjective ff up for COVID-19 pneumonia, atrial fibrillation Seen resting in bed, comfortable, not in distress Weaned off from high flow oxygen, now on 6 L of nasal cannula States she continues to feel improved today Less shortness of breath, cough No atrial fibrillation on surveillance system monitor since last night No chest pain, palpitations, dizziness No other symptom Review of Systems Review of Systems: All systems reviewed & are unremarkable except as noted in Subjective Physical Exam Physical Exam: General- oriented x 3, not in distress, speaks in sentences with no effort or accessory muscle use Eyes- anicteric Neck- no JVD Lungs-mild crackles at the bases, improving, no wheezing, good air entry bilaterally Heart- normal rate, regular rhythm; no murmurs Abdomen- normal bowel sounds, nondistended, soft, nontender Extremities- no pretibial edema, no calf tenderness Neuro- alert, oriented x 3; no gross focal neurologic deficits Skin- warm & dry Results & Data Results & Data ([facility]) Vital Signs (Past 12 Hours) Vital Signs Temp Pulse Pulse Resp BP Pulse Ox 02/21/20 16:01 87 20 92 02/21/20 15:43 36.8 C 88 20 99/66 L 92 02/21/20 12:09 74 20 92 02/21/20 11:06 36.7 C 92 H 22 95/71 L 90 Laboratory Results Laboratory Results - last 24 hr 02/20/20 02/21/20 02/21/20 21:50 04:36 04:36 APTT 41.6 H 41.6 H PTT Ratio 1.5 1.5 Sodium 136 Potassium 4.6 D Chloride 103 Carbon Dioxide 31 Anion Gap 2.0 L BUN 26 H Creatinine 0.80 Est Cr Clr Drug Dosing 74.8 Est GFR ( Amer) 89.0 Est GFR (Non-Af Amer) 76.8 BUN/Creatinine Ratio 31.7 H Glucose 107 H POC Glucose Calcium 8.7 02/21/20 02/21/20 02/21/20 07:50 11:06 11:56 APTT 44.7 H PTT Ratio 1.6 Sodium Potassium Chloride Carbon Dioxide Anion Gap BUN Creatinine Est Cr Clr Drug Dosing Est GFR ( Amer) Est GFR (Non-Af Amer) BUN/Creatinine Ratio Glucose POC Glucose 105 H 115 H Calcium 02/21/20 02/21/20 02/21/20 16:50 18:49 20:16 APTT 48.2 H* PTT Ratio 1.7 Sodium Potassium Chloride Carbon Dioxide Anion Gap BUN Creatinine Est Cr Clr Drug Dosing Est GFR ( Amer) Est GFR (Non-Af Amer) BUN/Creatinine Ratio Glucose POC Glucose 100 H 123 H Calcium Medications Administered Current Inpatient Medications Acetaminophen (Acetaminophen 325 Mg Tab) 325 mg PO Q4H PRN PRN Reason: Pain or Fever Stop: 03/09/20 17:24 Albuterol (Albuterol Hfa 8 Gm Inhaler) 2 puffs INH Q6R PRN PRN Reason: Shortness Of Breath Or Wheezin Stop: 03/09/20 18:59 Dextrose (Dextrose 50% 50 Ml Syringe) 25 - 50 ml IV UD PRN; Protocol PRN Reason: Hypoglycemia Protocol Stop: 03/09/20 17:24 Folic Acid (Folic Acid 1 Mg Tab) 1 mg PO QAM HARRY Stop: 03/10/20 08:59 Last Admin: 02/21/20 08:49 Dose: 1 mg Documented by: Glucagon (Glucagon For Inj 1 Mg Vial) 1 mg SQ UD PRN; Protocol PRN Reason: Hypoglycemia Protocol Stop: 03/09/20 17:24 Glucose (Glucose 10 Tabs/Tube) 4 - 8 tabs PO UD PRN; Protocol PRN Reason: Hypoglycemia Protocol Stop: 03/09/20 17:24 Glucose (Glucose 40% Gel 15 Gm Tube) 15 - 30 gm PO UD PRN; Protocol PRN Reason: Hypoglycemia Protocol Stop: 03/09/20 17:24 Guaifenesin (Guaifenesin 600 Mg Tabcr) 600 mg PO Q12 ON [facility] OF [facility] Stop: 03/10/20 08:59 Last Admin: 02/21/20 20:24 Dose: 600 mg Documented by: Heparin Sodium/Dextrose (Heparin Sodium/Dextrose) 25,000 units in 500 mls @ 31 mls/hr IV .Q16H8M HARRY; Protocol Stop: 03/17/20 07:14 Last Titration: 02/21/20 20:11 Dose: 1,550 units/hr, 31 mls/hr Documented by: Insulin Aspart (Insulin Aspart 100 Units/Ml 3 Ml Pen) 0 units SC ACHS ON LICENSE OF [facility] Stop: 03/09/20 17:44 Last Admin: 02/21/20 20:33 Dose: Not Given Documented by: Menthol (Cough Drop (Sugar Free) Bari 24 Bari/1 Box) 1 bari BUCCAL Q1H PRN PRN Reason: Sore Throat Stop: 03/11/20 15:49 Metoprolol Succinate (Metoprolol Succ 50mg Ext Rel Tab) 100 mg PO PM ON [facility] OF [facility] Stop: 03/21/20 20:59 Last Admin: 02/21/20 20:25 Dose: 100 mg Documented by: Miscellaneous (Carbohydrates For Hypoglycemia ) 15 - 30 gm PO UD PRN PRN Reason: Hypoglycemia Protocol Stop: 03/09/20 17:24 Multivitamins (Multivitamin Tab) 1 tab PO QAM@0800 ON [facility] Stop: 03/10/20 07:59 Last Admin: 02/21/20 08:49 Dose: 1 tab Documented by: Ondansetron HCl (Ondansetron Inj 2 Mg/Ml 2 Ml Vial) 4 mg IV Q6H PRN PRN Reason: Nausea Stop: 03/09/20 17:24 Pantoprazole Sodium (Pantoprazole 40 Mg Tab) 40 mg PO QAM@0800 ON [facility] Stop: 03/10/20 07:59 Last Admin: 02/21/20 08:50 Dose: 40 mg Documented by: Polyethylene Glycol (Polyethylene (Miralax) 17 Gm Pack) 17 gm PO DAILY PRN PRN Reason: Constipation Stop: 03/09/20 17:24 Potassium Chloride (Potassium Chloride 10 Meq Tabcr) 10 meq PO DAILY ON [facility] Stop: 03/22/20 08:59 Last Admin: 02/21/20 08:50 Dose: 10 meq Documented by: Thiamine HCl (Thiamine Hcl 100 Mg Tab) 100 mg PO QAM ON LICENSE OF [facility] Stop: 03/10/20 08:59 Last Admin: 02/21/20 08:50 Dose: 100 mg Documented by: Vitamin D (Cholecalciferol 1,000 Units 25 Mcg Tab) 1,000 units PO QAM@0800 ON [facility] Stop: 03/10/20 07:59 Last Admin: 02/21/20 08:50 Dose: 1,000 units Documented by: Zinc Sulfate (Zinc Sulfate 220 Mg Capsule) 220 mg PO QAM@0800 ON [facility] Stop: 03/10/20 07:59 Last Admin: 02/21/20 08:50 Dose: 220 mg Documented by: Home Medications Medication Instructions Recorded Confirmed cholecalciferol (vitamin D3) 25 mcg PO QAM 02/08/20 02/08/20 [Vitamin D3] [id number] [Vicks 30 ml PO QID PRN 02/08/20 02/08/20 NyQuil Cold/Flu (doxyl)] lisinopril 30 mg PO PM 02/08/20 02/08/20 metoprolol succinate 50 mg PO PM 02/08/20 02/08/20 multivitamin 1 tab PO QAM 02/08/20 02/08/20 pantoprazole 40 mg PO QAM 02/08/20 02/08/20 zinc 50 mg PO QAM 02/08/20 02/08/20
[2020-02-22 17:23] LABS: Partial Thromboplastin Ratio 1.8
[2020-02-22 17:25] LABS: Partial Thromboplastin Time 49.5 Seconds (21.0-31.0)
[2020-02-22 17:39] LABS: BUN Creatinine Ratio 29.6 (10-20); Calcium 9.1 mg/dl (8.5-10.1); Creatinine Clr Calc Pharmacy 80.9 ml/min; Est GFR (African American) 97.8; Est GFR (Non-African American) 84.4; Potassium 4.4 mmol/L (3.5-5.1)
--- NOTE | 2020-02-22 17:52 | Hospitalist Progress Note ---
Date of Service February 22, 2020 Assessment & Plan (1) Pneumonia due to 2019 novel coronavirus: Acute respiratory failure with hypoxia from Multifocal pneumonia possibly secondary to COVID-[address] Alfredo Ingram's notes: -as per 02/08/2020 History and Physical "Patient is a 65-year-old female with history of hypertension, prediabetes, GERD, S/P Right breast lumpectomy and other medical problems presents with history of worsening shortness of breath, generalized weakness associated with severe tiredness since 7 days duration. Patient was tested positive for Covid on September 30, 2019. Patient also states that her was tested positive as well. She admits to returning back from [place] about 10 days ago" -patient also reported that she had COVID screen tested positive on 01/31/20, done at [facility]. On the 02/08/2020 admission COVID-19 test at [facility] emergency room, patient tested negative but pulmonary consult assessed that the test in the ED was a false negative -admission CTA "No evidence for pulmonary embolus. Multifocal bilateral groundglass and consolidative airspace opacities consistent with a pneumonia. This likely represents a viral pneumonia. A superimposed bacterial pneumonia cannot be excluded." 02/18 Patient has completed course of remdesivir, dexamethasone, also has received convalescent plasma Still remains on high flow oxygen Repeat chest x-ray 02/18/2020 showing no significant change Will order Lasix 20 mg IV dose today Continue to encourage prone positioning Continue to monitor closely 02/19 feels improved hold off on Lasix today for marginal BP d/c Lisinopril monitor, wean off O2 accordingly 02/20 Weaned off high flow O2 Clinically improving Continue to monitor Wean off oxygen as able 02/22/2020 Continues to improve On 6 L of nasal cannula now Breathing is improving Continue to monitor Paroxysmal atrial fibrillation with rapid ventricular response on this hospital stay remains in sinus rhythm 02/18 Had an episode of nonsustained V. tach around 11 seconds Continue metoprolol twice daily, heparin drip Monitor electrolytes Remains in sinus rhythm, no arrhythmia overnight Continue Toprol, heparin drip Elevated D-dimer on admission -likely from underlying infection and inflammation -CTA showed no PE -Venous Dopplers negative for DVT (2) Diarrhea: -resolved Hypokalemia Hyponatremia -likely secondary to GI loses -Continue to monitor Hypertension -on Metoprolol - hold Lisinopril for marginal BP - GERD -Continue PPI Prediabetes -HbA1c 6.3% -sliding scale insulin while on IV steroids when in the hospital DVT Px:currently on IV heparin because of recent afib RVR CODE STATUS: Full code Disposition pending group home acute care vs SNF Admission and Anticipated Discharge Date Admission Date: February 08, 2020 Subjective Follow-up for COVID-19 pneumonia, acute hypoxic respiratory failure Seen sitting up in bed side chair, not in distress, comfortable On 6 L of nasal cannula States that she continues to feel improved no Shortness of breath, no chest pain, cough, palpitations, dizziness Appetite is good Remains in sinus rhythm, no arrhythmia overnight No other symptoms Review of Systems Review of Systems: All systems reviewed & are unremarkable except as noted in Subjective Physical Exam Physical Exam: General- oriented x 3, not in distress, speaks in sentences with no effort or accessory muscle use Eyes- anicteric Neck- no JVD Lungs-faint rales at the bases, good air entry bilaterally, no wheezing Heart- normal rate, regular rhythm; no murmurs Abdomen- normal bowel sounds, nondistended, soft, nontender Extremities- no pretibial edema, no calf tenderness Neuro- alert, oriented x 3; no gross focal neurologic deficits Skin- warm & dry Results & Data Results & Data ([facility]) Vital Signs (Past 12 Hours) Vital Signs Temp Pulse Resp BP Pulse Ox 02/22/20 17:15 36.8 C 95 H 16 116/78 91 Laboratory Results Medications cholecalciferol (vitamin D3) [Vitamin D3] 25 mcg PO QAM 02/08/20 [History Co nfirmed 02/08/20] [id number] [Vicks NyQuil Cold/Flu (doxyl)] 30 ml PO QID PRN 02/08/20 [History Confirmed 02/08/20] lisinopril 30 mg PO PM 02/08/20 [History Confirmed 02/08/20] metoprolol succinate 50 mg PO PM 02/08/20 [History Confirmed 02/08/20] multivitamin 1 tab PO QAM 02/08/20 [History Confirmed 02/08/20] pantoprazole 40 mg PO QAM 02/08/20 [History Confirmed 02/08/20] zinc 50 mg PO QAM 02/08/20 [History Confirmed 02/08/20] Home Medications Acetaminophen (Acetaminophen 325 Mg Tab) 325 mg PO Q4H PRN PRN Reason: Pain or Fever Stop: 03/09/20 17:24 Albuterol (Albuterol Hfa 8 Gm Inhaler) 2 puffs INH Q6R PRN PRN Reason: Shortness Of Breath Or Wheezin Stop: 03/09/20 18:59 Dextrose (Dextrose 50% 50 Ml Syringe) 25 - 50 ml IV UD PRN; Protocol PRN Reason: Hypoglycemia Protocol Stop: 03/09/20 17:24 Folic Acid (Folic Acid 1 Mg Tab) 1 mg PO QAM [facility] Stop: 03/10/20 08:59 Last Admin: 02/21/20 08:49 Dose: 1 mg Documented by: Glucagon (Glucagon For Inj 1 Mg Vial) 1 mg SQ UD PRN; Protocol PRN Reason: Hypoglycemia Protocol Stop: 03/09/20 17:24 Glucose (Glucose 10 Tabs/Tube) 4 - 8 tabs PO UD PRN; Protocol PRN Reason: Hypoglycemia Protocol Stop: 03/09/20 17:24 Glucose (Glucose 40% Gel 15 Gm Tube) 15 - 30 gm PO UD PRN; Protocol PRN Reason: Hypoglycemia Protocol Stop: 03/09/20 17:24 Guaifenesin (Guaifenesin 600 Mg Tabcr) 600 mg PO Q12 [facility] Stop: 03/10/20 08:59 Last Admin: 02/21/20 20:24 Dose: 600 mg Documented by: Heparin Sodium/Dextrose (Heparin Sodium/Dextrose) 25,000 units in 500 mls @ 31 mls/hr IV .Q16H8M [facility]; Protocol Stop: 03/17/20 07:14 Last Admin: 02/21/20 21:31 Dose: 1,550 units/hr, 31 mls/hr Documented by: Insulin Aspart (Insulin Aspart 100 Units/Ml 3 Ml Pen) 0 units SC ACHS [facility] Stop: 03/09/20 17:44 Last Admin: 02/21/20 20:33 Dose: Not Given Documented by: Menthol (Cough Drop (Sugar Free) Bari 24 Bari/1 Box) 1 bari BUCCAL Q1H PRN PRN Reason: Sore Throat Stop: 03/11/20 15:49 Metoprolol Succinate (Metoprolol Succ 50mg Ext Rel Tab) 100 mg PO PM [facility] Stop: 03/21/20 20:59 Last Admin: 02/21/20 20:25 Dose: 100 mg Documented by: Miscellaneous (Carbohydrates For Hypoglycemia ) 15 - 30 gm PO UD PRN PRN Reason: Hypoglycemia Protocol Stop: 03/09/20 17:24 Multivitamins (Multivitamin Tab) 1 tab PO QAM@0800 [facility] Stop: 03/10/20 07:59 Last Admin: 02/21/20 08:49 Dose: 1 tab Documented by: Ondansetron HCl (Ondansetron Inj 2 Mg/Ml 2 Ml Vial) 4 mg IV Q6H PRN PRN Reason: Nausea Stop: 03/09/20 17:24 Pantoprazole Sodium (Pantoprazole 40 Mg Tab) 40 mg PO QAM@0800 [facility] Stop: 03/10/20 07:59 Last Admin: 02/21/20 08:50 Dose: 40 mg Documented by: Polyethylene Glycol (Polyethylene (Miralax) 17 Gm Pack) 17 gm PO DAILY PRN PRN Reason: Constipation Stop: 03/09/20 17:24 Potassium Chloride (Potassium Chloride 10 Meq Tabcr) 10 meq PO DAILY [facility] Stop: 03/22/20 08:59 Last Admin: 02/21/20 08:50 Dose: 10 meq Documented by: Thiamine HCl (Thiamine Hcl 100 Mg Tab) 100 mg PO QAM [facility] Stop: 03/10/20 08:59 Last Admin: 02/21/20 08:50 Dose: 100 mg Documented by: Vitamin D (Cholecalciferol 1,000 Units 25 Mcg Tab) 1,000 units PO QAM@0800 [facility] Stop: 03/10/20 07:59 Last Admin: 02/21/20 08:50 Dose: 1,000 units Documented by: Zinc Sulfate (Zinc Sulfate 220 Mg Capsule) 220 mg PO QAM@0800 [facility] Stop: 03/10/20 07:59 Last Admin: 02/21/20 08:50 Dose: 220 mg Documented by:
[2020-02-22] MEDS: INSULIN ASPART 100 UNITS/ML 3 ML PEN SC SCH ×2 (20:48→21:23)
[2020-02-22] MEDS: METOPROLOL SUCC 50MG EXT REL TAB PO SCH (21:15)
[2020-02-22] MEDS: guaiFENesin 600 MG TABCR PO SCH (22:23)
[2020-02-23] MEDS: HEPARIN SODIUM/DEXTROSE 25,000 UNITS/500 ML BAG IV SCH ×2 (05:30→21:13)
[2020-02-23] MEDS: CHOLECALCIFEROL 1,000 UNITS 25 MCG TAB PO SCH ×2 (07:13→08:37)
[2020-02-23] MEDS: FOLIC ACID 1 MG TAB PO SCH ×2 (07:13→08:36)
[2020-02-23] MEDS: ZINC SULFATE 220 MG CAPSULE PO SCH ×2 (07:13→08:35)
[2020-02-23] MEDS: MULTIVITAMIN TAB PO SCH ×2 (07:13→08:37)
[2020-02-23] MEDS: PANTOprazole 40 MG TAB PO SCH ×2 (07:13→08:37)
[2020-02-23] MEDS: THIAMINE HCL 100 MG TAB PO SCH ×2 (07:13→08:37)
[2020-02-23] MEDS: guaiFENesin 600 MG TABCR PO SCH ×3 (07:13→21:04)
[2020-02-23] MEDS: POTASSIUM CHLORIDE 10 MEQ TABCR PO SCH ×2 (07:13→08:38)
[2020-02-23] MEDS: INSULIN ASPART 100 UNITS/ML 3 ML PEN SC SCH ×6 (07:16→21:09)
[2020-02-23 07:40] LABS: BUN Creatinine Ratio 25.4 (10-20); Calcium 9.2 mg/dl (8.5-10.1); Est GFR (African American) 86.4; Est GFR (Non-African American) 74.6; Potassium 4.6 mmol/L (3.5-5.1)
[2020-02-23 12:11] LABS: Partial Thromboplastin Ratio 1.9
[2020-02-23 12:18] LABS: Partial Thromboplastin Time 51.8 Seconds (21.0-31.0)
--- NOTE | 2020-02-23 19:58 | Hospitalist Progress Note ---
Date of Service February 23, 2020 Assessment & Plan (1) Pneumonia due to 2019 novel coronavirus: Acute respiratory failure with hypoxia from Multifocal pneumonia possibly secondary to COVID-[address] Alfredo Ingram's notes: -as per 02/08/2020 History and Physical "Patient is a 65-year-old female with history of hypertension, prediabetes, GERD, S/P Right breast lumpectomy and other medical problems presents with history of worsening shortness of breath, generalized weakness associated with severe tiredness since 7 days duration. Patient was tested positive for Covid on September 30, 2019. Patient also states that her was tested positive as well. She admits to returning back from [place] about 10 days ago" -patient also reported that she had COVID screen tested positive on 01/31/20, done at [facility]. On the 02/08/2020 admission COVID-19 test at [facility] emergency room, patient tested negative but pulmonary consult assessed that the test in the ED was a false negative -admission CTA "No evidence for pulmonary embolus. Multifocal bilateral groundglass and consolidative airspace opacities consistent with a pneumonia. This likely represents a viral pneumonia. A superimposed bacterial pneumonia cannot be excluded." 02/18 Patient has completed course of remdesivir, dexamethasone, also has received convalescent plasma Still remains on high flow oxygen Repeat chest x-ray 02/18/2020 showing no significant change Will order Lasix 20 mg IV dose today Continue to encourage prone positioning Continue to monitor closely 02/19 feels improved hold off on Lasix today for marginal BP d/c Lisinopril monitor, wean off O2 accordingly 02/20 Weaned off high flow O2 Clinically improving Continue to monitor Wean off oxygen as able 02/22/2020 Continues to improve On 6 L of nasal cannula now Breathing is improving Continue to monitor 02/23/2020 Symptomatically improving On 6 L of nasal cannula Continue to wean off oxygen Paroxysmal atrial fibrillation with rapid ventricular response on this hospital stay remains in sinus rhythm 02/18 Had an episode of nonsustained V. tach around 11 seconds Continue metoprolol twice daily, heparin drip Monitor electrolytes Remains in sinus rhythm, no arrhythmia overnight Continue Toprol, heparin drip Elevated D-dimer on admission -likely from underlying infection and inflammation -CTA showed no PE -Venous Dopplers negative for DVT (2) Diarrhea: -resolved Hypokalemia Hyponatremia -likely secondary to GI loses -Continue to monitor Hypertension -on Metoprolol - hold Lisinopril for marginal BP - GERD -Continue PPI Prediabetes -HbA1c 6.3% -sliding scale insulin while on IV steroids when in the hospital DVT Px:currently on IV heparin because of recent afib RVR CODE STATUS: Full code Disposition pending care home acute care vs SNF Admission and Anticipated Discharge Date Admission Date: February 08, 2020 Subjective Follow-up for COVID-19 pneumonia, acute hypoxic respiratory failure Seen resting in bed, comfortable, not in distress On 6 L of oxygen via nasal cannula States breathing continues to improve Denies chest pain No palpitations, no dizziness no bleeding Review of Systems Review of Systems: All systems reviewed & are unremarkable except as noted in Subjective Physical Exam Physical Exam: General- oriented x 3, not in distress, speaks in sentences with no effort or accessory muscle use Eyes- anicteric Neck- no JVD Lungs-mild crackles at the bases, no wheezing, good air entry bilaterally Heart- normal rate, regular rhythm; no murmurs Abdomen- normal bowel sounds, nondistended, soft, nontender Extremities- no pretibial edema, no calf tenderness Neuro- alert, oriented x 3; no gross focal neurologic deficits Skin- warm & dry Results & Data Results & Data ([facility]) Vital Signs (Past 12 Hours) Vital Signs Temp Pulse Pulse Resp BP Pulse Ox 02/23/20 19:23 37.2 C 94 H 19 125/79 89 L 02/23/20 16:00 97 H 02/23/20 15:43 37.1 C 93 H 114/79 90 02/23/20 12:38 36.6 C 85 115/70 99 02/23/20 08:00 79 Laboratory Results Laboratory Results - last 24 hr 02/22/20 02/23/20 02/23/20 20:14 06:46 11:35 APTT 51.8 H* PTT Ratio 1.9 Sodium 138 Potassium 4.6 Chloride 102 Carbon Dioxide 31 Anion Gap 5.0 BUN 21 H Creatinine 0.82 Est Cr Clr Drug Dosing 73.0 Est GFR ( Amer) 86.4 Est GFR (Non-Af Amer) 74.6 BUN/Creatinine Ratio 25.4 H Glucose 118 H POC Glucose 145 H Calcium 9.2 02/23/20 02/23/20 11:39 16:16 APTT PTT Ratio Sodium Potassium Chloride Carbon Dioxide Anion Gap BUN Creatinine Est Cr Clr Drug Dosing Est GFR ( Amer) Est GFR (Non-Af Amer) BUN/Creatinine Ratio Glucose POC Glucose 104 H 122 H Calcium
[2020-02-23] MEDS: METOPROLOL SUCC 50MG EXT REL TAB PO SCH (21:04)
[2020-02-24 06:39] LABS: Partial Thromboplastin Ratio 2.2
[2020-02-24 06:43] LABS: BUN Creatinine Ratio 23.9 (10-20); Calcium 8.9 mg/dl (8.5-10.1); Creatinine Clr Calc Pharmacy 76.7 ml/min; Est GFR (African American) 91.8; Est GFR (Non-African American) 79.2; Potassium 4.7 mmol/L (3.5-5.1)
[2020-02-24 06:51] LABS: Partial Thromboplastin Time 61.6 Seconds (21.0-31.0)
[2020-02-24] MEDS: guaiFENesin 600 MG TABCR PO SCH ×2 (08:17→21:36)
[2020-02-24] MEDS: FOLIC ACID 1 MG TAB PO SCH (08:18)
[2020-02-24] MEDS: MULTIVITAMIN TAB PO SCH (08:18)
[2020-02-24] MEDS: CHOLECALCIFEROL 1,000 UNITS 25 MCG TAB PO SCH (08:18)
[2020-02-24] MEDS: PANTOprazole 40 MG TAB PO SCH (08:18)
[2020-02-24] MEDS: ZINC SULFATE 220 MG CAPSULE PO SCH (08:18)
[2020-02-24] MEDS: POTASSIUM CHLORIDE 10 MEQ TABCR PO SCH (08:18)
[2020-02-24] MEDS: THIAMINE HCL 100 MG TAB PO SCH (08:18)
[2020-02-24] MEDS: INSULIN ASPART 100 UNITS/ML 3 ML PEN SC SCH ×4 (09:00→21:53)
[2020-02-24] MEDS: HEPARIN SODIUM/DEXTROSE 25,000 UNITS/500 ML BAG IV SCH ×3 (13:44→21:55)
--- NOTE | 2020-02-24 17:02 | Hospitalist Progress Note ---
Date of Service February 24, 2020 Assessment & Plan (1) Pneumonia due to 2019 novel coronavirus: Acute respiratory failure with hypoxia from Multifocal pneumonia possibly secondary to COVID-[address] Alfredo Ingram's notes: -as per 02/08/2020 History and Physical "Patient is a 65-year-old female with history of hypertension, prediabetes, GERD, S/P Right breast lumpectomy and other medical problems presents with history of worsening shortness of breath, generalized weakness associated with severe tiredness since 7 days duration. Patient was tested positive for Covid on September 30, 2019. Patient also states that her was tested positive as well. She admits to returning back from [place] about 10 days ago" -patient also reported that she had COVID screen tested positive on 01/31/20, done at [facility]. On the 02/08/2020 admission COVID-19 test at [facility] emergency room, patient tested negative but pulmonary consult assessed that the test in the ED was a false negative -admission CTA "No evidence for pulmonary embolus. Multifocal bilateral groundglass and consolidative airspace opacities consistent with a pneumonia. This likely represents a viral pneumonia. A superimposed bacterial pneumonia cannot be excluded." 02/18 Patient has completed course of remdesivir, dexamethasone, also has received convalescent plasma Still remains on high flow oxygen Repeat chest x-ray 02/18/2020 showing no significant change Will order Lasix 20 mg IV dose today Continue to encourage prone positioning Continue to monitor closely 02/19 feels improved hold off on Lasix today for marginal BP d/c Lisinopril monitor, wean off O2 accordingly 02/20 Weaned off high flow O2 Clinically improving Continue to monitor Wean off oxygen as able 02/22/2020 Continues to improve On 6 L of nasal cannula now Breathing is improving Continue to monitor 02/23/2020 Symptomatically improving On 6 L of nasal cannula Continue to wean off oxygen 02/24/2020 continue to improve wean off oxygen as able Paroxysmal atrial fibrillation with rapid ventricular response on this hospital stay remains in sinus rhythm 02/18 Had an episode of nonsustained V. tach around 11 seconds Continue metoprolol twice daily, heparin drip Monitor electrolytes had 1 episode of SVT ~20sec for the past 2 days asymptomatic Continue Toprol transition from heparin to Eliquis 5mg BID starting tonight Elevated D-dimer on admission -likely from underlying infection and inflammation -CTA showed no PE -Venous Dopplers negative for DVT (2) Diarrhea: -resolved Hypokalemia Hyponatremia -likely secondary to GI loses -Continue to monitor Hypertension -on Metoprolol - hold Lisinopril for marginal BP GERD -Continue PPI Prediabetes -HbA1c 6.3% -sliding scale insulin while on IV steroids when in the hospital DVT Px:transition from heparin to eliquis CODE STATUS: Full code Disposition pending PT/OT eval possible d/c home with home horacio when medically stable Admission and Anticipated Discharge Date Admission Date: February 08, 2020 Subjective ff up for COvid 19 pneumonia, hypoxic respiratory failure seen resting in bed, comfortable, not in distress on 6 l O via nasal cannula states she feels improved compared to yesterday breathing is improving had SVT episode overnight 20sec asymptomatic, no chest pain, palpitations, dizziness no other symptoms Review of Systems Review of Systems: All systems reviewed & are unremarkable except as noted in Subjective Physical Exam Physical Exam: General- oriented x 3, not in distress, speaks in sentences with no effort or accessory muscle use Eyes- anicteric Neck- no JVD Lungs- clear BS BL Heart- normal rate, regular rhythm; no murmurs Abdomen- normal bowel sounds, nondistended, soft, nontender Extremities- no pretibial edema, no calf tenderness Neuro- alert, oriented x 3; no gross focal neurologic deficits Skin- warm & dry Results & Data Results & Data ([facility]) Vital Signs (Past 12 Hours) Vital Signs Temp Pulse Pulse Resp BP Pulse Ox 02/24/20 16:14 92 02/24/20 15:38 100 H 02/24/20 15:18 36.6 C 102 H 19 106/73 92 02/24/20 14:48 93 02/24/20 11:23 36.5 C 98 H 20 115/75 91 02/24/20 07:25 80 02/24/20 07:19 36.8 C 84 22 105/71 92
[2020-02-24] MEDS: METOPROLOL SUCC 50MG EXT REL TAB PO SCH (21:35)
[2020-02-24] MEDS: APIXABAN 5 MG TABLET PO SCH (21:36)
[2020-02-25 06:27] LABS: Partial Thromboplastin Ratio 0.9; Partial Thromboplastin Time 23.8 Seconds (21.0-31.0)
[2020-02-25 06:46] LABS: BUN Creatinine Ratio 24.7 (10-20); Calcium 8.8 mg/dl (8.5-10.1); Creatinine Clr Calc Pharmacy 73.9 ml/min; Est GFR (African American) 87.7; Est GFR (Non-African American) 75.7; Potassium 4.5 mmol/L (3.5-5.1)
[2020-02-25] MEDS: INSULIN ASPART 100 UNITS/ML 3 ML PEN SC SCH ×4 (08:49→22:07)
[2020-02-25] MEDS: guaiFENesin 600 MG TABCR PO SCH ×2 (08:52→20:54)
[2020-02-25] MEDS: THIAMINE HCL 100 MG TAB PO SCH (08:52)
[2020-02-25] MEDS: POTASSIUM CHLORIDE 10 MEQ TABCR PO SCH (08:53)
[2020-02-25] MEDS: FOLIC ACID 1 MG TAB PO SCH (08:53)
[2020-02-25] MEDS: CHOLECALCIFEROL 1,000 UNITS 25 MCG TAB PO SCH (08:53)
[2020-02-25] MEDS: APIXABAN 5 MG TABLET PO SCH ×2 (08:53→20:54)
[2020-02-25] MEDS: MULTIVITAMIN TAB PO SCH (08:54)
[2020-02-25] MEDS: ZINC SULFATE 220 MG CAPSULE PO SCH (08:54)
[2020-02-25] MEDS: PANTOprazole 40 MG TAB PO SCH (08:54)
[2020-02-25] MEDS: METOPROLOL SUCC 50MG EXT REL TAB PO SCH (20:53)
--- NOTE | 2020-02-25 21:23 | Hospitalist Progress Note ---
Date of Service delayed entry date of service noted below February 25, 2020 Assessment & Plan (1) Pneumonia due to 2019 novel coronavirus: Acute respiratory failure with hypoxia from Multifocal pneumonia possibly secondary to COVID-[address] Alfredo Ingram's notes: -as per 02/08/2020 History and Physical "Patient is a 65-year-old female with history of hypertension, prediabetes, GERD, S/P Right breast lumpectomy and other medical problems presents with history of worsening shortness of breath, generalized weakness associated with severe tiredness since 7 days duration. Patient was tested positive for Covid on September 30, 2019. Patient also states that her was tested positive as well. She admits to returning back from [place] about 10 days ago" -patient also reported that she had COVID screen tested positive on 01/31/20, done at [facility]. On the 02/08/2020 admission COVID-19 test at [facility] emergency room, patient tested negative but pulmonary consult assessed that the test in the ED was a false negative -admission CTA "No evidence for pulmonary embolus. Multifocal bilateral groundglass and consolidative airspace opacities consistent with a pneumonia. This likely represents a viral pneumonia. A superimposed bacterial pneumonia ca nnot be excluded." Patient has completed course of remdesivir, dexamethasone, also has received convalescent plasma was able to be transitioned from high flow oxygen to nasal cannula, now at 6 L continues to improve wean off oxygen as able will need 2 step exercise test Paroxysmal atrial fibrillation with rapid ventricular response on this hospital stay [employer] consulted remains in sinus rhythm has episodes of nonsustained V. tach around 11 seconds given metoprolol twice daily, heparin drip (CHADS VASC score 3) transitioned from heparin to Eliquis 5mg BID 02/24/20 ff up with [employer] as outpatient Elevated D-dimer on admission -likely from underlying infection and inflammation -CTA showed no PE -Venous Dopplers negative for DVT (2) Diarrhea: -resolved Hypokalemia Hyponatremia -likely secondary to GI loses -Continue to monitor Hypertension -on Metoprolol - hold Lisinopril for marginal BP GERD -Continue PPI Prediabetes -HbA1c 6.3% -sliding scale insulin while on IV steroids when in the hospital DVT Px:transitioned from heparin to eliquis CODE STATUS: Full code Disposition pending PT/OT eval--> recommend dc home possible d/c home with home horacio when medically stable, requiring less O2 supplementation plan of care discussed with patient in detail and at length, all questions answered she is understanding, agreeable, comfortable with the plan of care Admission and Anticipated Discharge Date Admission Date: February 08, 2020 Subjective ff up for COVID 19 pneumonia, hypoxic respiratory failure seen resting in chair, comfortable on 6L o2 via nasal cannula states she continued to feel better breathing improving, no cough no bleeding no other new symptoms Review of Systems Review of Systems: All systems reviewed & are unremarkable except as noted in Subjective Physical Exam Physical Exam: General- oriented x 3, not in distress, speaks in sentences with no effort or accessory muscle use Eyes- anicteric Neck- no JVD Lungs- clear breath sounds bilaterally no crackles no wheezing Heart- normal rate, regular rhythm; no murmurs Abdomen- normal bowel sounds, nondistended, soft, nontender Extremities- no pretibial edema, no calf tenderness Neuro- alert, oriented x 3; no gross focal neurologic deficits Skin- warm & dry Results & Data Results & Data ([facility]) Vital Signs (Past 12 Hours) Vital Signs Temp Pulse Pulse Pulse Resp BP BP 02/25/20 20:43 36.7 C 93 H 19 116/81 02/25/20 16:21 36.7 C 96 H 18 107/69 02/25/20 16:00 99 H 02/25/20 15:47 36.8 C 101 H 115/81 02/25/20 12:00 36.5 C 98 H 18 115/78 Pulse Ox 02/25/20 20:43 94 02/25/20 16:21 97 02/25/20 16:00 02/25/20 15:47 90 02/25/20 12:00 96 Laboratory Results all noted and reviewed
[2020-02-26] MEDS: CHOLECALCIFEROL 1,000 UNITS 25 MCG TAB PO SCH (09:03)
[2020-02-26] MEDS: APIXABAN 5 MG TABLET PO SCH ×2 (09:03→20:27)
[2020-02-26] MEDS: FOLIC ACID 1 MG TAB PO SCH (09:03)
[2020-02-26] MEDS: ZINC SULFATE 220 MG CAPSULE PO SCH (09:04)
[2020-02-26] MEDS: guaiFENesin 600 MG TABCR PO SCH ×2 (09:04→20:27)
[2020-02-26] MEDS: MULTIVITAMIN TAB PO SCH (09:04)
[2020-02-26] MEDS: PANTOprazole 40 MG TAB PO SCH (09:04)
[2020-02-26] MEDS: POTASSIUM CHLORIDE 10 MEQ TABCR PO SCH (09:04)
[2020-02-26] MEDS: THIAMINE HCL 100 MG TAB PO SCH (09:04)
[2020-02-26] MEDS: INSULIN ASPART 100 UNITS/ML 3 ML PEN SC SCH ×4 (09:06→22:28)
--- NOTE | 2020-02-26 19:36 | Hospitalist Progress Note ---
Date of Service February 26, 2020 Assessment & Plan (1) Pneumonia due to 2019 novel coronavirus: Acute respiratory failure with hypoxia from Multifocal pneumonia possibly secondary to COVID-[address] Alfredo Ingram's notes: -as per 02/08/2020 History and Physical "Patient is a 65-year-old female with history of hypertension, prediabetes, GERD, S/P Right breast lumpectomy and other medical problems presents with history of worsening shortness of breath, generalized weakness associated with severe tiredness since 7 days duration. Patient was tested positive for Covid on September 30, 2019. Patient also states that her was tested positive as well. She admits to returning back from [place] about 10 days ago" -patient also reported that she had COVID screen tested positive on 01/31/20, done at [facility]. On the 02/08/2020 admission COVID-19 test at [facility] emergency room, patient tested negative but pulmonary consult assessed that the test in the ED was a false negative -admission CTA "No evidence for pulmonary embolus. Multifocal bilateral groundglass and consolidative airspace opacities consistent with a pneumonia. This likely represents a viral pneumonia. A superimposed bacterial pneumonia cannot be excluded." Patient has completed course of remdesivir, dexamethasone, also has received convalescent plasma hypoxia improved on 2 L 02 spo2 90% ( was not on home 02 ) ordered for 2 step exercise test Paroxysmal atrial fibrillation with rapid ventricular response on this hospital stay [employer] consulted remains in sinus rhythm has episodes of nonsustained V. tach around 11 seconds on metoprolol twice daily, Eliquis 5mg BID 02/24/20(CHADS VASC score 3) ff up with [employer] as outpatient Elevated D-dimer on admission -likely from underlying infection and inflammation -CTA showed no PE -Venous Dopplers negative for DVT (2) Diarrhea: -resolved Hypertension -on Metoprolol - hold Lisinopril for marginal BP GERD -Continue PPI Prediabetes -HbA1c 6.3% -sliding scale insulin while on IV steroids when in the hospital DVT Px:tr Eliquis CODE STATUS: Full code Disposition plan to dc home tomorrow after 2 step exercise Admission and Anticipated Discharge Date Admission Date: February 08, 2020 Subjective cough has resolved no fever or chills on 2 L 02 via nasal canula /no SOB at rest minimum GREEN Review of Systems Review of Systems: All systems reviewed & are unremarkable except as noted in HPI & below Constitutional: no fever, no chills and no fatigue Respiratory: + dyspnea on exertion; no cough and no dyspnea Physical Exam Constitutional: WD/WN, vitals as above Eyes: PERRL, conjunctivae normal, anicteric sclerae ENMT: external ear and nose normal, oropharynx normal Neck: trachea midline, no thyromegaly Respiratory: normal respiratory effort; no respiratory distress and no cough Auscultation: no crackles, no rales, no rhonchi and no wheezes Cardiovascular: RRR, no murmur, no edema Gastrointestinal (Abdomen): normal bowel sounds, soft, nontender, no hepatosplenomegaly Musculoskeletal: no cyanosis or clubbing, extremities motor strength 5/5 Skin: no rashes, warm and dry Neurologic: PERRL, EOMI, accommodation nl, no face palsy, no dysarthria Psychiatric: A+Ox3, euthymic affect Results & Data Results & Data ([facility]) Vital Signs (Past 12 Hours) Vital Signs Temp Pulse Pulse Pulse Resp BP Pulse Ox 02/26/20 19:11 36.9 C 104 H 24 106/78 90 02/26/20 15:28 36.7 C 93 H 20 129/86 93 02/26/20 11:46 36.8 C 101 H 18 130/87 92 02/26/20 11:24 97 H 02/26/20 09:12 94 02/26/20 07:42 36.5 C 87 18 149/92 H 95
[2020-02-26] MEDS: METOPROLOL SUCC 50MG EXT REL TAB PO SCH (20:27)
--- NOTE | 2020-02-27 08:04 | XRay Report ---
XR chest 1V portable HISTORY: Pneumonia. Follow-up. covid 19 COMPARISON: Chest 02/18/2020. FINDINGS: No pneumothorax. No pleural effusions. The heart remains normal in size. The right upper lo be peripheral airspace opacity has progressed. The remaining multifocal bilateral airspace opacities are stable to improved. No evidence for pulmonary edema. IMPRESSION: Overall, mixed response compared to the prior study with slight progression of the right upper lobe a irspace opacity and improvement in the remaining bilateral airspace opacities. ACT 112: Negative or not required by law. Electronically signed by: Ahsan Wing M.D. 02/27/2020 8:03 AM
[2020-02-27] MEDS: THIAMINE HCL 100 MG TAB PO SCH (09:14)
[2020-02-27] MEDS: PANTOprazole 40 MG TAB PO SCH (09:14)
[2020-02-27] MEDS: MULTIVITAMIN TAB PO SCH (09:14)
[2020-02-27] MEDS: ZINC SULFATE 220 MG CAPSULE PO SCH (09:14)
[2020-02-27] MEDS: APIXABAN 5 MG TABLET PO SCH (09:14)
[2020-02-27] MEDS: guaiFENesin 600 MG TABCR PO SCH (09:14)
[2020-02-27] MEDS: FOLIC ACID 1 MG TAB PO SCH (09:15)
[2020-02-27] MEDS: CHOLECALCIFEROL 1,000 UNITS 25 MCG TAB PO SCH (09:15)
[2020-02-27] MEDS: POTASSIUM CHLORIDE 10 MEQ TABCR PO SCH (09:19)
[2020-02-27] MEDS: INSULIN ASPART 100 UNITS/ML 3 ML PEN SC SCH ×2 (09:20→12:23)
--- NOTE | 2020-02-27 11:08 | Hospitalist Progress Note ---
Date of Service February 27, 2020 Assessment & Plan (1) Pneumonia due to 2019 novel coronavirus: Acute respiratory failure with hypoxia from Multifocal pneumonia possibly secondary to COVID-[address] Alfredo Ingram's notes: -as per 02/08/2020 History and Physical "Patient is a 65-year-old female with history of hypertension, prediabetes, GERD, S/P Right breast lumpectomy and other medical problems presents with history of worsening shortness of breath, generalized weakness associated with severe tiredness since 7 days duration. Patient was tested positive for Covid on September 30, 2019. Patient also states that her was tested positive as well. She admits to returning back from [place] about 10 days ago" -patient also reported that she had COVID screen tested positive on 01/31/20, done at [facility]. On the 02/08/2020 admission COVID-19 test at [facility] emergency room, patient tested negative but pulmonary consult assessed that the test in the ED was a false negative -admission CTA "No evidence for pulmonary embolus. Multifocal bilateral groundglass and consolidative airspace opacities consistent with a pneumonia. This likely represents a viral pneumonia. A superimposed bacterial pneumonia cannot be excluded." respiratory status improved , off from High flow 02 no 2 L 02 via nasal canula Patient has completed course of remdesivir, dexamethasone, convalescent plasma persisted Hypoxia due to sequela of COVID 19 infection /pneumonia 2 step exercise done today : needs 2 L 02 at rest /6 L with exertion script for home 02 given to case management home 02 supply with portability will be arranged before discharged home today Paroxysmal atrial fibrillation with rapid ventricular response on this hospital stay [employer] consulted remains in sinus rhythm-episodes of tachycardia due to hypoxia /exertion Metoprolol dose adjusted Eliquis 5mg BID 02/24/20(CHADS VASC score 3) ff up with [employer] as outpatient Elevated D-dimer on admission -likely from underlying infection and inflammation -CTA showed no PE -Venous Dopplers negative for DVT (2) Diarrhea: -resolved Hypertension -on Metoprolol dose increased to 100 mg daily Lisinopril d/ce for borderline hypotension pt will be followed with Cardiology and family physician in clinic for further adjustment of BP meds as indicated - GERD -Continue PPI Prediabetes -HbA1c 6.3% - DVT Px:tr Eliquis CODE STATUS: Full code Disposition dc home today Admission and Anticipated Discharge Date Admission Date: February 08, 2020 Subjective pt sitting up on chair , comfortable no fever or chills , no cough /no chest pain or SOB at rest telemetry reviewed ;at rest HR remains sinus 80-90's with activity goes up to 110 's pt denies of any feeling palpitation or dizzy spell feels like her baseline stable to be discharged home today 2 step exercise done , script given to CM for 2 L at rest and 6 L 02 with ambulation Review of Systems Review of Systems: All systems reviewed & are unremarkable except as noted in HPI & below Constitutional: no fever and no chills Respiratory: no cough Cardiovascular: + chest pain, + dyspnea at rest, + palpitations, + lightheadedness and + syncope Physical Exam Constitutional: WD/WN, vitals as above Eyes: PERRL, conjunctivae normal, anicteric sclerae ENMT: external ear and nose normal, oropharynx normal Neck: trachea midline, no thyromegaly Respiratory: normal respiratory effort; no respiratory distress and no cough Auscultation: no crackles, no rales, no rhonchi and no wheezes Cardiovascular: RRR, no murmur, no edema Gastrointestinal (Abdomen): normal bowel sounds, soft, nontender, no hepatosplenomegaly Musculoskeletal: no cyanosis or clubbing, extremities motor strength 5/5 Skin: no rashes, warm and dry Neurologic: PERRL, EOMI, accommodation nl, no face palsy, no dysarthria Psychiatric: A+Ox3, euthymic affect Results & Data Results & Data ([facility]) Vital Signs (Past 12 Hours) Vital Signs Temp Pulse Pulse Pulse Pulse Pulse Pulse 02/27/20 09:44 85 02/27/20 09:06 108 H 106 H 120 H 105 H 02/27/20 08:14 36.6 C 95 H 02/27/20 04:26 36.5 C 94 H 02/27/20 00:37 36.8 C 83 Pulse Resp Resp Resp Resp Resp Resp 02/27/20 09:44 02/27/20 09:06 106 H 20 26 H 26 H 24 20 02/27/20 08:14 02/27/20 04:26 20 02/27/20 00:37 18 BP BP Pulse Ox Pulse Ox Pulse Ox Pulse Ox Pulse Ox 02/27/20 09:44 02/27/20 09:06 91 88 L 85 L 93 02/27/20 08:14 106/69 90 02/27/20 04:26 113/73 92 02/27/20 00:37 112/74 91 Pulse Ox 02/27/20 09:44 02/27/20 09:06 86 L 02/27/20 08:14 02/27/20 04:26 02/27/20 00:37
--- NOTE | 2020-02-27 11:12 | Discharge Summary ---
Date of Service February 27, 2020 Admission HPI Per Admitting Provider Patient is a 65-year-old female with history of hypertension, prediabetes, GERD, S/P Right breast lumpectomy and other medical problems presents with history of worsening shortness of breath, generalized weakness associated with severe tiredness since 7 days duration. Patient was tested positive for Covid on September 30, 2019. Patient also states that her was tested positive as well. She admits to returning back from [place] about 10 days ago. She reports minimal cough with no expectoration. She denies dyspnea at rest but has significant shortness of breath with minimal exertion. She also admits to having diarrhea since 1 week duration but denies any blood in stools. Also states having low-grade fever associated with chills since 1 week duration. She admits to having loss of taste and smell for the last few days. Reports chronic lower back pain since many years. Patient states having very poor appetite clinically but denies any significant weight loss. Denies any history of chest pain, SOB, palpitations, dizziness, pedal edema, wheezing, hemoptysis, fall, head trauma, headache, bowel/bladder incontinence, nausea, vomiting, abdominal pain, blood in stools, dysuria, hematuria, recent change in medications. Principal Diagnosis Acute respiratory failure with hypoxia from Multifocal pneumonia possibly secondary to COVID-19 Elevated D-dimer on admission Paroxysmal atrial fibrillation with rapid ventricular response Hypokalemia Hyponatremia Hypertension GERD Prediabetes Discharge Exam Constitutional WD/WN, vitals as above Eyes PERRL, conjunctivae normal, anicteric sclerae ENMT external ear and nose normal, oropharynx normal Neck trachea midline, no thyromegaly Respiratory normal respiratory effort; no respiratory distress and no cough Auscultation: no crackles, no rales, no rhonchi and no wheezes Cardiovascular RRR, no murmur, no edema Gastrointestinal (Abdomen) normal bowel sounds, soft, nontender, no hepatosplenomegaly Musculoskeletal no cyanosis or clubbing, extremities motor strength 5/5 Skin no rashes, warm and dry Neurologic PERRL, EOMI, accommodation nl, no face palsy, no dysarthria Psychiatric A+Ox3, euthymic affect Discharge Data Allergies Allergy/AdvReac Type Severity Reaction Status Date / Time No Known Allergies Allergy Unverified 02/08/20 13:47 Consultations 02/08/20 13:51 ED Decision to Admit Stat 02/08/20 17:25 Consult Case Management - Discharge Planning Routine Consult Pulmonology Routine 02/16/20 07:00 Consult Pulmonology Routine 02/16/20 08:00 Consult Cardiology Routine Ordered Studies 02/08/20 13:21 CT angio chest PE protocol Stat 02/08/20 17:25 US venous doppler LE BI Routine Hospital Course (1) Pneumonia due to 2019 novel coronavirus: Acute respiratory failure with hypoxia from Multifocal pneumonia possibly secondary to COVID-[address] Alfredo Ingram's notes: -as per 02/08/2020 History and Physical "Patient is a 65-year-old female with history of hypertension, prediabetes, GERD, S/P Right breast lumpectomy and other medical problems presents with history of worsening shortness of breath, generalized weakness associated with severe tiredness since 7 days duration. Patient was tested positive for Covid on September 30, 2019. Patient also states that her was tested positive as well. She admits to returning back from [place] about 10 days ago" -patient also reported that she had COVID screen tested positive on 01/31/20, done at [facility]. On the 02/08/2020 admission COVID-19 test at [facility] emergency room, patient tested negative but pulmonary consult assessed that the test in the ED was a false negative -admission CTA "No evidence for pulmonary embolus. Multifocal bilateral groundglass and consolidative airspace opacities consistent with a pneumonia. This likely represents a viral pneumonia. A superimposed bacterial pneumonia cannot be excluded." respiratory status improved , off from High flow 02 no 2 L 02 via nasal canula Patient has completed course of remdesivir, dexamethasone, convalescent plasma persisted Hypoxia due to sequela of COVID 19 infection /pneumonia 2 step exercise done today : needs 2 L 02 at rest /6 L with exertion script for home 02 given to case management home 02 supply with portability will be arranged before discharged home today Paroxysmal atrial fibrillation with rapid ventricular response on this hospital stay Obstetrics Nurse consulted remains in sinus rhythm-episodes of tachycardia due to hypoxia /exertion Metoprolol dose adjusted Eliquis 5mg BID 02/24/20(CHADS VASC score 3) ff up with Obstetrics Nurse as outpatient Elevated D-dimer on admission -likely from underlying infection and inflammation -CTA showed no PE -Venous Dopplers negative for DVT (2) Diarrhea: -resolved Hypertension -on Metoprolol dose increased to 100 mg daily Lisinopril d/ce for borderline hypotension pt will be followed with Cardiology and family physician in clinic for further adjustment of BP meds as indicated - GERD -Continue PPI Prediabetes -HbA1c 6.3% - DVT Px:camille Castellon CODE STATUS: Full code Disposition dc home today Total Time Total Time Spent Total Time Spent (In Minutes): approx 40 mins Total Time Includes: Examination of the Patient, Discharge Planning and Medication Reconciliation Discharge Plan Discharge Items Patient Disposition: Home - Home Health Services Reason For Visit: ACUTE RESPIRATORY FAILURE, COVID PNEUMONIA Discharge Diagnosis: Acute respiratory failure with hypoxia from Multifocal pneumonia possibly secondary to COVID-19 Elevated D-dimer on admission Paroxysmal atrial fibrillation with rapid ventricular response Hypokalemia Hyponatremia Hypertension GERD Prediabetes Condition on Discharge: Fair Activity: As commented below Activity Comment: as tolerated Non-emergency contact: Primary Care Provider Call non-emergency contact if: you have any medication questions Follow-up/Referrals: Migel Vergara MD [Physician] - (CARDIOLOGY FOLLOW UP IN 2-3 WEEKS FOR ATRIAL FIBRILLATION ) Jessie Esquivel PA-C [Primary Care Provider] - (hospital follow up in a week ) Diet: Heart Healthy Addtl Attending Provider Instructions: Follow up with family physician in a week CARDIOLOGY FOLLOW UP IN 2-3 WEEKS you do not need to do strict isolation /quarantine on discharge , please follow the guidelines below to limit your exposure from Virus in future you are discharged on 2 L 0xygen at rest and 6 L oxygen with ambulation /walking -activity please have home pulse oximeter goal spo2 /oxygen saturation > 92 if you feel shortness of breath , chest heaviness , feeling of fast heartbeat , dizzy -check oxygen level with pulse oximeter , increase the oxygen if needed call your family physician or come to ER , if symptoms persists after rest Addtl Direct Service Worker Provider Instructions: How can COVID-19 be prevented? There is no vaccine yet. The best prevention is to not have contact with the virus. The CDC advises that people should not travel to areas where there are COVID-19 outbreaks right now for any reason that is not urgent. To help prevent spreading the infection, wash your hands often, or use an alcohol-basedhand spike machine heater. Wash your hands often. Or use an alcohol-based hand spike machine heater often. Only touch your eyes, nose, or mouth with clean hands. Dont have contact with people who are sick. Follow local instructions about being in public. For example, you may be told to not use public transport for a period of time. Stay away from markets that have live or animals. Wash your hands after touching any animals. Don't touch animals that may be sick. Dont share eating or drinking tools with sick people. Dont kiss someone who is sick. Clean surfaces often with disinfectant. If you were in an area with COVID-19 in the last 14 days: Call your healthcare provider. He or she can talk with local health staff to see what action may be needed. Follow all instructions from your provider. Take your temperature every morning and evening for at least 14 days. This is to check for fever. Keep a record of the readings. Keep watch for symptoms of the virus. Tell your provider right away if you have symptoms. To learn more To find out more about COVID-19, visit the CDC website at www.cdc. gov/coronavirus/2019-ncov/index.html. [employer]. [address] [place] [address]. All rights reserved. This information is not intended as a substitute for professional medical care. Always follow your healthcare professional's instructions. This information has been adapted from [employer] Pending Studies at Discharge: No Stand-Alone Forms: My [facility], Smoking Cessation Medications and DC Order Prescriptions: New Eliquis 5 mg Tablet 5 mg PO BID 30 Days Qty: 60 RF: 3 metoprolol succinate 50 mg tablet extended release 24 hr 100 mg PO PM 30 Days Qty: 60 RF: 3 potassium chloride [Klor-Con M10] 10 mEq Tablet,Er Particles/Crystals 10 meq PO DAILY 30 Days Qty: 30 RF: 0 guaifenesin [Mucinex] 600 mg Tablet Extended Release 12hr 600 mg PO Q12 30 Days Qty: 60 RF: 0 Continued multivitamin Tablet 1 tab PO QAM RF: 0 pantoprazole 40 mg tablet,delayed release (DR/EC) 40 mg PO QAM RF: 0 zinc 50 mg Tablet 50 mg PO QAM RF: 0 cholecalciferol (vitamin D3) [Vitamin D3] 25 mcg (1,000 unit) Tablet 25 mcg PO QAM RF: 0 Discontinued lisinopril 30 mg tablet 30 mg PO PM RF: 0 Vicks NyQuil Cold/Flu (doxyl) 12.5-30-1,000 mg/30 mL Liquid 30 ml PO QID PRN (Reason: Cold Symptoms) RF: 0 Discharge Orders: Discharge Order (Routine); Ordered 02/27/20 Ordered By: Rajani Reyes/Other Patient Handouts: Discharge Instructions for Atrial ..., Apixaban oral tablets, A1C Admission Data Admit Date/Time: 02/08/20 15:08 Attending Provider: Rajani Virgen Admit Provider: César Foy Primary Care Provider: Jessie Esquivel Other Providers: César Foy ; Suzanna Gaytan ; Emmett Calero ; Isauro Horvath ; Migel Vergara ; Osiel Myers ; Christian Aguilera ; Bryon Millan ; Whit Cuellar ; Celine Dietrich ; Ian Velez ; Antoni Ayoub ; Alfredo Ingram ; [facility] [place] ; [facility] ; Grant Lambert
== END 2020-02-27 15:43 | disposition home health service (06) | DRG 177 ==
LOC: ED 11:37 → 2S 15:08 → SUATTDRO 15:08 → 2S 16:53 → 2E 02-16 10:59 → 2S 02-18 00:41